=== PATIENT | male | born 1950 | race Caucasian/White ===

== ENCOUNTER → 2016-04-18 | Outpatient (REF) | payer OTHER ==
[~2016-04-18] MED LIST: /GUAIMAX PO; ALBU17IN INH; AMLODOPINE PO; ATEN50TA2 PO; CETI10TA3 PO; FLUTISP; GABA300C2 PO; HYDR-3713 PO; INSULANT SC; LISI5TAB PO; MOME50SP; OCEA0.654; SIMV80TA PO; SYMB80INH INH; TYLE325T5 PO; [UNRECOGNIZED DRUG - OTHER] SUBQ; flonase; hctz PO; lantus insulin SUBQ; lisinopril PO; singular PO
[2016-04-18 12:57] LABS: ALBUMIN 3.6 GM/DL (3.2-5.2); ALBUMIN/GLOBULIN RATIO 1.09 (1.00-1.93); ALKALINE PHOSPHATASE 146 U/L (45-117); ALT/SGPT 29 U/L (12-78); ANION GAP 9 MEQ/L (8-16); AST/SGOT 16 U/L (15-37); BILIRUBIN,TOTAL 0.5 MG/DL (0.2-1.0); BLOOD UREA NITROGEN 21 MG/DL (7-18); CALCIUM LEVEL 9.4 MG/DL (8.8-10.2); CARBON DIOXIDE LEVEL 27 MEQ/L (21-32); CHLORIDE LEVEL 106 MEQ/L (98-107); CHOLESTEROL LEVEL 108 MG/DL (<200); CREATININE FOR GFR 0.94 MG/DL (0.70-1.30); GLOMERULAR FILTRATION RATE > 60.0 (>49); GLUCOSE, FASTING 170 MG/DL (80-110); POTASSIUM SERUM 3.9 MEQ/L (3.5-5.1); SODIUM LEVEL 142 MEQ/L (136-145); TOTAL PROTEIN 6.9 GM/DL (6.4-8.2); TRIGLYCERIDES LEVEL 131 MG/DL (<150)
== END ==
LOC: M SFHCCLAY 07:13
PROVIDERS: ATTEND Family Medicine
DX: E11.49 Type 2 diabetes mellitus with other diabetic neurological complication (principal)

== ENCOUNTER → 2016-09-01 | Outpatient (REF) | payer OTHER ==
[2016-09-01 14:07] LABS: ALBUMIN 3.6 GM/DL (3.2-5.2); ALBUMIN/GLOBULIN RATIO 1.13 (1.00-1.93); ALKALINE PHOSPHATASE 104 U/L (45-117); ALT/SGPT 45 U/L (12-78); ANION GAP 12 MEQ/L (8-16); AST/SGOT 19 U/L (15-37); BILIRUBIN,TOTAL 0.3 MG/DL (0.2-1.0); BLOOD UREA NITROGEN 21 MG/DL (7-18); CALCIUM LEVEL 9.1 MG/DL (8.8-10.2); CARBON DIOXIDE LEVEL 25 MEQ/L (21-32); CHLORIDE LEVEL 107 MEQ/L (98-107); CHOLESTEROL LEVEL 86 MG/DL (<200); CREATININE FOR GFR 0.71 MG/DL (0.70-1.30); GLOMERULAR FILTRATION RATE > 60.0 (>49); GLUCOSE, FASTING 63 MG/DL (80-110); POTASSIUM SERUM 4.2 MEQ/L (3.5-5.1); SODIUM LEVEL 144 MEQ/L (136-145); TOTAL PROTEIN 6.8 GM/DL (6.4-8.2); TRIGLYCERIDES LEVEL 99 MG/DL (<150)
== END ==
LOC: M SFHCCLAY 06:59
PROVIDERS: ATTEND Family Medicine
DX: E11.49 Type 2 diabetes mellitus with other diabetic neurological complication (principal)

== ENCOUNTER → 2017-01-04 | Outpatient (REF) | payer OTHER ==
[2017-01-04 12:11] LABS: ALBUMIN 3.3 GM/DL (3.2-5.2); ALKALINE PHOSPHATASE 145 U/L (45-117); ALT/SGPT 48 U/L (12-78); ANION GAP 9 MEQ/L (8-16); AST/SGOT 21 U/L (7-37); BILIRUBIN,TOTAL 0.3 MG/DL (0.2-1.0); BLOOD UREA NITROGEN 19 MG/DL (7-18); CALCIUM LEVEL 8.8 MG/DL (8.8-10.2); CARBON DIOXIDE LEVEL 27 MEQ/L (21-32); CHLORIDE LEVEL 105 MEQ/L (98-107); CHOLESTEROL LEVEL 91 MG/DL (<200); CREATININE FOR GFR 0.83 MG/DL (0.70-1.30); GLOMERULAR FILTRATION RATE > 60.0 (>49); GLUCOSE, FASTING 183 MG/DL (80-110); POTASSIUM SERUM 4.1 MEQ/L (3.5-5.1); SODIUM LEVEL 141 MEQ/L (136-145); TOTAL PROTEIN 6.6 GM/DL (6.4-8.2); TRIGLYCERIDES LEVEL 100 MG/DL (<150)
== END ==
LOC: M SFHCCLAY 07:03
PROVIDERS: ATTEND Family Medicine
DX: E11.49 Type 2 diabetes mellitus with other diabetic neurological complication (principal)

== ENCOUNTER → 2018-01-15 | Outpatient (REF) | payer OTHER ==
[2018-01-15 11:33] LABS: ANION GAP 6 MEQ/L (8-16); BLOOD UREA NITROGEN 25 MG/DL (7-18); CALCIUM LEVEL 8.7 MG/DL (8.8-10.2); CARBON DIOXIDE LEVEL 27 MEQ/L (21-32); CHLORIDE LEVEL 111 MEQ/L (98-107); CREATININE FOR GFR 1.09 MG/DL (0.70-1.30); GLOMERULAR FILTRATION RATE > 60.0 (>49); GLUCOSE, FASTING 105 MG/DL (70-100); POTASSIUM SERUM 4.3 MEQ/L (3.5-5.1); SODIUM LEVEL 144 MEQ/L (136-145)
[2018-01-15 12:56] LABS: ESTIMATED AVERAGE GLUCOSE 243 MG/DL (60-110); HEMOGLOBIN A1c 10.1 %
== END ==
LOC: M SFHCCLAY 07:14
DX: E11.49 Type 2 diabetes mellitus with other diabetic neurological complication (principal)

== ENCOUNTER → 2018-04-29 | Outpatient (REF) | payer OTHER ==
[2018-04-29 11:43] LABS: HEMOGLOBIN A1c 8.2 %
[2018-04-29 12:10] LABS: CREATININE, URINE 16.7 MG/DL; MAU/CREAT RATIO 646.7 MCG/MG (0.0-30.0)
[2018-04-29 12:40] LABS: ALBUMIN 3.8 GM/DL (3.2-5.2); BILIRUBIN,TOTAL 0.5 MG/DL (0.2-1.0); CALCIUM LEVEL 8.3 MG/DL (8.8-10.2); CHOLESTEROL RISK RATIO 2.151 (<5); CREATININE FOR GFR 1.52 MG/DL (0.70-1.30); GLOMERULAR FILTRATION RATE 49.2 (>49); POTASSIUM SERUM 4.6 MEQ/L (3.5-5.1); TOTAL PROTEIN 7.1 GM/DL (6.4-8.2)
== END ==
LOC: M SFHCCLAY 08:56
PROVIDERS: ATTEND Family Medicine
DX: E11.49 Type 2 diabetes mellitus with other diabetic neurological complication (principal)

== ENCOUNTER 2018-06-10 21:43 | Inpatient (IN) | payer OTHER ==
[2018-06-09 23:45] VITALS: BP 150/70
[~2018-06-10] VITALS: Ht 175.3 cm; Wt 95.3 kg
[2018-06-10] MEDS: GABAPENTIN 300 MG CAP PO SCH (18:00)
[2018-06-10] MEDS: ATORVASTATIN 20 MG TAB PO SCH (18:00)
[2018-06-10] MEDS: FLUTICASONE PROP 0.05% NASAL SPRAY 16 GM (FLONASE) SCH (21:00)
[~2018-06-10 21:43] MED LIST changes: +FLUT1SPR2; -FLUTISP
[2018-06-10 21:45] VITALS: BP 150/70
[2018-06-10] MEDS: ISOSORBIDE DIN. (ISORDIL) 30 MG TAB PO SCH (22:00)
[2018-06-10] MEDS ORDERED: GLUCAGON FOR INJ 1 MG VIAL (J1610) SC PRN (22:15)
[2018-06-10] MEDS ORDERED: MOM 30ML SUSPENSION UDC PO PRN (22:15)
[2018-06-10] MEDS ORDERED: MAALOX 30 ML SUSP *UDC PO PRN (22:15)
[2018-06-10] MEDS ORDERED: GLUCOSE 4 GM CHEW TABLET PO PRN (22:15)
[2018-06-10] MEDS ORDERED: LR 1,000 ML IV SCH (22:45)
[2018-06-10] MEDS ORDERED: LISI40TA PO (22:47)
[2018-06-10] MEDS ORDERED: INSUHUMDS SC (22:47)
[2018-06-10] MEDS ORDERED: SYMB16INH INH (22:47)
[2018-06-10] MEDS ORDERED: GABA-843 PO (22:47)
[2018-06-10] MEDS ORDERED: AMLO-151 PO (22:47)
[2018-06-10] MEDS ORDERED: LANTINJ4 SC (22:47)
--- NOTE | 2018-06-10 23:00 | HPEPDOC ---
General Date of Admission June 10, 2018 at 21:43 Chief Complaint The patient is a 67-year-old male admitted with a reason for visit of ARF. Source: Patient, RN/MD, Old records Exam Limitations: No limitations History of Present Illness Mr. Scott is a 67 years old man transferred from [facility] with dx of acute renal failure. Pt reports feeling weak, and slight dizzy for about a week. He also c/o intermitted low back pain and feeling cold. He states he is urinating less than usual because "he is also drinking less" because he don't feel as thirsty. Otherwise PT denies fever, chills, hematuria, dysuria or diarrhea. Denies use of NSAID. Pt reportedly was taking K supplement at home. Pt has hx/o IDDM; doesn't take any nephrotoxic meds. At [facility], pt was noted to have BUN 126, Cr 6.[address] Pride was contacted from there; pt was given 1 amp bicarb, a litre of fluid bolus. EKG: LAFB, RBBB. CXR: normal. Home Medications Scheduled (Gabapentin) 300 Mg Cap, 300 MG PO BID, (Reported) Budesonide/Formoterol (Symbicort 80-4.5 Mcg Inhaler) 60 Puff/Inhaler Aers, 2 PUFF INH BID, (Reported) Cetirizine Hcl (Cetirizine Hcl) 10 Mg Tab, 10 MG PO DAILY, (Reported) Simvastatin (Simvastatin) 80 Mg Tab, 80 MG PO DAILY, (Reported) Sodium Chloride (Pershing) 0.65 % Spr, 4 SPRAYS NA Q4H, (Reported) [amlodopine] , 5 MG PO DAILY, (Reported) [hctz] , 25 MG PO DAILY, (Reported) [humalog ins] , SUBQ bid ac lunch dinner, (Reported) [lantus insulin] , 80 MG SUBQ every am, (Reported) [lisinopril] , 40 MG PO DAILY, (Reported) Scheduled PRN Acetaminophen (Tylenol) 325 Mg Tab, 650 MG PO Q4HP PRN for pain, (Reported) Albuterol Sulfate (Proventil, Ventolin Hfa) 200 Puff/8 Gm Aers, 2 PUFF INH PRN PRN for SHORTNESS OF BREATH, (Reported) Hydrocodone/Acetaminophen (Hydrocodone-Acetamin 5-325 mg) 1 Tab Tab, 1-2 TAB PO Q4HP PRN for PAIN SCALE 6-10, (Reported) Allergies Coded Allergies: aspirin (Verified Allergy, Severe, ANAPHYLAXIS, 06/10/18) Past Medical History Medical History IDDM, HTN, HD, Asthma Surgical History Sinus sx, Left knee sx Family History Significant Family History: Cancer Social History * Smoker: Denies Alcohol: Denies Drugs: denies A-FIB/CHADSVASC A-FIB History Current/History of A-Fib/PAF?: No Review of Systems Constitutional: Reports: Malaise, Weakness, Fatigue; Denies: Chills, Fever Eyes: Denies: Pain ENT: Denies: Head Aches, Dysphagia Skin: Denies: Rash Pulmonary: Denies: Dyspnea, Cough Cardiovascular: Denies: Chest Pain, Palpitations Gastrointestinal: Denies: Nausea, Vomiting, Abdominal Pain, Diarrhea Genitourinary: Denies: Dysuria, Frequency Musculoskeletal: Reports: Back Pain; Denies: Neck Pain Neurological: Reports: Weakness Psych: Reports: Mood Normal Physical Examination General Exam: Positive: Alert, Cooperative, No Acute Distress Eye Exam: Positive: PERRLA ENT Exam: Positive: Atraumatic Neck Exam: Positive: Supple; Negative: JVD Chest Exam: Positive: Clear to auscultation, Normal air movement Heart Exam: Positive: Rate Normal Abdomen Exam: Positive: Normal bowel sounds, Soft; Negative: Tenderness Extremity Exam: Positive: Edema (2+ edema on both legs), Normal pulses Skin Exam: Negative: Rash Neuro Exam: Positive: Normal Speech, Strength at 5/5 X4 ext Psych Exam: Positive: Mental status NL, Mood NL Vital Signs Vital Signs Date Time Temp Pulse Resp B/P (MAP) Pulse Ox O2 Delivery O2 Flow Rate FiO2 06/09/18 23:45 98.3 78 20 150/70 (96) 96 Assessment/Plan 67 years old diabetic man presenting with acute renal failure, hyperkalemia, and leg edema. Acute Renal Failure, Hyperkalemia, and Leg edema - Admit to inpatient; PCU with tele - CBC, CMP, ESR, TSH, UA, Urine Protein/Cr; CT abd/pelv - Nephrology consult - LR 150 cc/hr - Berry, I/O, daily wt - Echo - Hold ACEI IDDM - SSI and home ELIAS dose Plan / VTE VTE Prophylaxis Ordered?: Yes Plan / Urinary Catheter Urinary Catheter: Place Berry Reason for insertion/continuin: Other-document below (acute renal failure) Plan Anticipated Discharge: Home ALEXANDR ERVIN MD June 10, 2018 23:00
[2018-06-10 23:31] LABS: VENOUS BASE EXCESS -16.8 (-2.0-2.0); VENOUS HCO3 10.5 MEQ/L (23.0-27.0); VENOUS O2 SATURATION 98.8 % (60.0-80.0); VENOUS PARTIAL PRESSURE O2 174.9 mmHg (30.0-50.0); VENOUS PH 7.163 UNITS (7.330-7.430); VENOUS STANDARD HCO3 11.7 MEQ/L; VENOUS TOTAL CO2 11.4 MEQ/L (24.0-28.0)
[2018-06-10 23:35] LABS: HEMATOCRIT 30.9 % (42.0-52.0); HEMOGLOBIN 10.2 g/dl (13.5-17.5); MEAN CORPUSCULAR HEMOGLOBIN 27.2 pg (27.0-33.0); MEAN CORPUSCULAR VOLUME 82.4 fl (80.0-96.0); PLATELET COUNT, AUTOMATED 307 10^3/uL (150-450); RED BLOOD COUNT 3.75 10^6/uL (4.30-6.10); WHITE BLOOD COUNT 11.2 10^3/uL (4.0-10.0)
[2018-06-10] MEDS ORDERED: AMLO10TA5 PO (23:37)
[2018-06-10] MEDS ORDERED: POTA10TA14 PO (23:37)
[2018-06-10] MEDS ORDERED: BUME2TAB3 PO (23:37)
[2018-06-10] MEDS ORDERED: ATOR40TA75 PO (23:37)
[2018-06-10] MEDS ORDERED: ALL10TAB28 PO (23:37)
[2018-06-10] MEDS ORDERED: FLON1SPR (23:37)
[2018-06-10] MEDS ORDERED: VENTAER INH (23:37)
[2018-06-10] MEDS ORDERED: ALBU83IN INH (23:37)
[2018-06-10 23:45] LABS: INR 1.15; PARTIAL THROMBOPLASTIN TIME 27.1 SECONDS (25.4-37.6); PROTHROMBIN TIME 14.9 SECONDS (12.1-14.4)
[2018-06-10 23:51] LABS: HEMOGLOBIN A1c 9.2 %
[2018-06-10 23:54] LABS: ERYTHROCYTE SEDIMENTATION RATE 28 mm/hr (0-20)
[2018-06-10 23:56] LABS: ALBUMIN 2.9 GM/DL (3.2-5.2); BILIRUBIN,TOTAL 0.3 MG/DL (0.2-1.0); CALCIUM LEVEL 7.2 MG/DL (8.8-10.2); CREATININE FOR GFR 6.19 MG/DL (0.70-1.30); GLOMERULAR FILTRATION RATE 9.7 (>49); POTASSIUM SERUM 5.6 MEQ/L (3.5-5.1)
[2018-06-10 23:59] VITALS: BP 157/69
[2018-06-11 00:03] LABS: THYROID STIMULATING HORMONE 0.977 uIU/ML (0.358-3.740)
[2018-06-11] MEDS ORDERED: ALBUTEROL 90 MCG/ACT 8GM HFA INHALER INH PRN (00:15)
--- NOTE | 2018-06-11 00:29 | REPVR ---
EXAM: CT Abdomen and Pelvis Without Contrast EXAM DATE/TIME: 06/10/2018 10:55 PM CLINICAL HISTORY: 67 years old, male; Abdominal pain; Generalized; Additional info: Acute renal failure TECHNIQUE: Imaging protocol: Axial computed tomography images of the abdomen and pelvis without contrast. Coronal and sagittal reformatted images were created and reviewed. Radiation optimization: All CT scans at this facility use at least one of these dose optimization techniques: automated exposure control; mA and/or kV adjustment per patient size (includes targeted exams where dose is matched to clinical indication); or iterative reconstruction. COMPARISON: CT ABD PELVIS W/O CONTRAST 06/25/2012 2:17 PM FINDINGS: ABDOMEN: Liver: The liver is low in density. Gallbladder and bile ducts: Normal. No calcified stones. No ductal dilation. Pancreas: Calcifications noted to within the pancreas particularly the pancreatic head. Spleen: Normal. No splenomegaly. Adrenals: Normal. No mass. Kidneys and ureters: 2.5 mm calcification lower pole left kidney. No hydronephrosis in either kidney Stomach and bowel: There appears to be pneumatosis in the right side of the colon. No bowel wall thickening. No abnormally dilated bowel loops. Appendix: No evidence of appendicitis. PELVIS: Bladder: Unremarkable as visualized. Reproductive: The prostate measures 4 x 5.3 x 4.9 cm. ABDOMEN and PELVIS: Intraperitoneal space: Normal. No free air. No significant fluid collection. Bones/joints: Degenerative changes of the lumbar spine most significant at L4-5 and L5-S1. Soft tissues: There is an umbilical hernia containing fat. Trace amount of soft tissue thickening/fluidnoted within the herniated fat. Mild generalized stranding of the intra-abdominal fat. Small inguinal hernias bilaterally containing fat. No evidence of strangulation. Vasculature: Normal. No abdominal aortic aneurysm. Lymph nodes: Normal. No enlarged lymph nodes. Other findings: There is generalized arteriosclerosis. IMPRESSION: 1. Pneumatosis suggested of the cecum and ascending colon. 2. Chronic calcific pancreatitis. 3. Nonobstructing calculus in the lower pole left kidney. 4. Hepatic steatosis 5. Umbilical hernia containing fat. Trace amount of fluid or soft tissue thickening noted within the hernia Electronically signed by: Dori Dalal On 06/11/2018 00:29:15 AM
[2018-06-11] MEDS: SYMBICORT 160/4.5MCG INHALER 6GM INH SCH ×3 (00:38→20:19)
[2018-06-11] MEDS: SODIUM BICARBONATE 150 MEQ in STERILE WATER LITER BAG 1,000 ML IV SCH ×3 (01:00→20:03)
[2018-06-11 01:50] LABS: OSMOLALITY URINE 323 MOSM/KG (500-800)
[2018-06-11 02:07] LABS: SODIUM,RANDOM URINE 59 MEQ/L
[2018-06-11 02:12] LABS: CREATININE,RANDOM URINE 61.9 MG/DL
--- NOTE | 2018-06-11 03:11 | CR.PDOC ---
General Surgery Consultation Date of Consultation 06/11/18 History and Physical CONSULT REPORT FOR: Hospitalist service REASON FOR CONSULTATION: Abnormal findings on CT, question pneumatosis right colon HISTORY OF PRESENT ILLNESS: Patient is a 67-year-old gentleman, diabetic who was transferred from [facility]. He presented at [facility] emergency room complaining of 1 month history of not feeling well, generalized body weakness. He does not specifically complain of any abdominal pain or discomfort. He was found to have acute renal failure Juvenal reason for the transfer. While here in the hospital he had a noncontrast CT performed to evaluate the cause of the renal failure. He was found to have possible pneumatosis in the right colon. He reports having loose stool, some fecal urgency intermittently the past two weeks but none today. He denies any bloody or mucus containing bowel movements today. Review of the records from [facility] shows soft bp (one recording of BP 96/43, rest are normal range). He got IVF bolus there. His vitals here in the hospital shows elevated BP. He denies any abdominal pain at the time I saw him. PAST MEDICAL HISTORY: 1. diabetes with neuropathy 2. hypertension 3. hypercholesterolemia PAST SURGICAL HISTORY: INCLUDES: 1. denies any abdominal surgeries ALLERGIES: Please see below. FAMILY HISTORY: Father from prostate cancer HOME MEDICATIONS: Please see below. REVIEW OF SYSTEMS: GENERAL: Denies fever, reports feeling weak HEENT: Denies blurred vision and double vision. Denies ear symptoms. Denies hoarseness. NECK: Denies any neck pain]. CARDIOVASCULAR: Denies chest pain and palpitations. MUSCULOSKELETAL: Denies arthralgias, back pain and thrombophlebitis. SKIN: Denies rash. NEUROLOGIC: Denies headache, stroke and transient ischemic attack. PSYCHIATRIC: Denies anxiety and depression. ENDOCRINE: Denies thyroid disease. HEMATOLOGY/ONCOLOGY: Denies bleeding or clotting disorder. HEART: Denies any chest pains, palpitations, paroxysmal dyspnea, orthopnea. PULMONARY: Denies chronic cough, dyspnea and wheezing. GASTROINTESTINAL: Denies rectal bleeding, family history of colon cancer, constipation, diarrhea, dysphagia, heartburn and jaundice. Patient denies any o ngoing abdominal discomfort GENITOURINARY: Denies dysuria, frequency, hematuria and nocturia. ENDOCRINE: Denies polydipsia, polyphagia, polyuria, heat or cold intolerance. INFECTIOUS: Denies any recent upper respiratory tract infection, UTI, need for use of antibiotics. NUTRITION: Reports poor appetite PHYSICAL EXAMINATION: VITALS SIGNS: Please see below. GENERAL APPEARANCE:Patient seen, laying in bed, awake, alert, and oriented. Comfortable, in no acute distress. SKIN: Warm and moist. HEENT: Normocephalic, atraumatic. Guffey palpebral conjunctiva, anicteric sclerae. Lips and mucosa appear moist. NECK: Supple, no thyromegaly. No obvious jugular venous distention. LUNGS: Clear to auscultation bilaterally. No wheezing appreciated. HEART: No chest wall abnormalities. Regular rate and rhythm with no murmurs appreciated. ABDOMEN: Abdomen is mild obese, soft, nondistended. nontender on palpation even on deep palpation over right lower quadrant area. EXTREMITIES: Mild lower extremity edema ANCILLARIES: . LABORATORY DATA: Please see below. IMAGING STUDIES: CT abdomen and pelvis, noncontrast Liver: The liver is low in density. Gallbladder and bile ducts: Normal. No calcified stones. No ductal dilation. Pancreas: Calcifications noted to within the pancreas particularly the pancreatic head. Spleen: Normal. No splenomegaly. Adrenals: Normal. No mass. Kidneys and ureters: 2.5 mm calcification lower pole left kidney. No hydronephrosis in either kidney Stomach and bowel: There appears to be pneumatosis in the right side of the colon. No bowel wall thickening. No abnormally dilated bowel loops. Appendix: No evidence of appendicitis. IMPRESSION AND PLAN: Acute renal failure Questionable pneumatosis right colon, no peritonitis, no CVA inflammatory response no lactic acidosis This may not be an actual pneumatosis or ischemia over the right colon. Clinical examination does not reveal any evidence for peritonitis. He does not have any tenderness over the abdomen and specifically the right lower quadrant area. He does have some metabolic acidosis but this is mainly non-lactic acidosis. His lactic acid is 0.5. For meantime I think it is prudent to start him on some antibiotics, continue to follow his course clinically. I will closely follow him him up with serial abdominal exam. For meantime continue to hydrate the patient, keep him normotensive, follow urine output. I will keep him nothing by mouth until reevaluation. If there is no deterioration the probably can restart oral intake. If he does show signs of peritonitis, abdominal tenderness, lactic acidosis or deterioration or even signs of perforation, he will need to go to the operating room for abdominal exploration possibly bowel resection. Vital Signs Vital Signs Date Time Temp Pulse Resp B/P (MAP) Pulse Ox O2 Delivery O2 Flow Rate FiO2 06/10/18 23:59 98.0 70 20 157/69 (98) 96 I&Os I&O- Last 24 Hours up to 6 AM 06/11/18 06:00 Intake Total 0 ml Output Total 0 ml Balance 0 ml Laboratory Data Labs 24H Laboratory Tests 2 06/10/18 23:19: Nucleated Red Blood Cells % (auto) 0.0, Erythrocyte Sedimentation Rate 28H, Prothrombin Time 14.9H, Prothromb Time International Ratio 1.15, Activated Partial Thromboplast Time 27.1, Blood Gas Bicarbonate Standard 11.7, Venous Blood pH 7.163L, Venous Blood Partial Pressure CO2 30.0L, Venous Blood Partial Pressure O2 174.9H, Venous Blood Total Carbon Dioxide 11.4L, Venous Blood HCO3 10.5L, Venous Blood Oxygen Saturation 98.8H, Venous Blood Base Excess -16.8L, Anion Gap 12, Glomerular Filtration Rate 9.7L, Estimated Mean Plasma Glucose 217H, Hemoglobin A1c 9.2, Osmolality 325H, Lactic Acid Level 0.5, Blood Urea Nitrogen 114H, Creatinine 6.19H, Sodium Level 143, Potassium Level 5.6H, Chloride Level 118H, Carbon Dioxide Level 13L, Calcium Level 7.2L, Aspartate Amino Transf (AST/SGOT) 12, Alanine Aminotransferase (ALT/SGPT) 34, Alkaline Phosphatase 122H, Total Bilirubin 0.3, Total Protein 6.0L, Albumin 2.9L, Albumin/Globulin Ratio 0.94L, Thyroid Stimulating Hormone (TSH) 0.977 06/11/18 00:07: Bedside Glucose (Misc Panel) 92 06/11/18 01:18: Urine Color STRAW, Urine Appearance CLEAR, Urine pH 5.0, Urine Specific [place] 1.008, Urine Protein NEGATIVE, Urine Glucose (UA) NEGATIVE, Urine Ketones NEGATIVE, Urine Blood 1+H, Urine Nitrite NEGATIVE, Urine Bilirubin NEGATIVE, Urine Urobilinogen 0.2, Urine Leukocyte Esterase NEGATIVE, Urine WBC (Auto) 1, Urine RBC (Auto) 0, Urine Hyaline Casts (Auto) 0, Urine Bacteria (Auto) NEGATIVE, Urine Squamous Epithelial Cells 0, Urine Sperm (Auto) , Urine Random Osmolality 323L CBC/BMP Laboratory Tests 06/10/18 23:19 Red Blood Count 3.75 L, Mean Corpuscular Volume 82.4, Mean Corpuscular Hemoglobin 27.2, Mean Corpuscular Hemoglobin Concent 33.0, Red Cell Distribution Width 15.2 H, Calcium Level 7.2 L, Aspartate Amino Transf (AST/SGOT) 12, Alanine Aminotransferase (ALT/SGPT) 34, Alkaline Phosphatase 122 H, Total Bilirubin 0.3, Total Protein 6.0 L, Albumin 2.9 L Home Medications Scheduled Amlodipine Besylate (Amlodipine Besylate) 10 Mg Tablet, 10 MG PO DAILY, (Reported) Atorvastatin Calcium (Atorvastatin Calcium) 40 Mg Tablet, 40 MG PO QPM, (Reported) TAKES AT DINNERTIME Budesonide/Formoterol (Symbicort 160-4.5 Mcg Inhaler) 6 Gm Hfa.aer.ad, 2 PUFF INH BID, (Reported) Bumetanide (Bumetanide) 2 Mg Tablet, 2 MG PO BID, (Reported) Cetirizine HCl (Cetirizine HCl) 10 Mg Tablet, 10 MG PO DAILY, (Reported) Fluticasone Propionate (Flonase Allergy Relief) 9.9 Ml [place].susp, 1 SPRAY NA BID, (Reported) Gabapentin (Gabapentin) 300 Mg Capsule, 300 MG PO QPM, (Reported) TAKES AT DINNERTIME Insulin Glargine,Hum.rec.anlog (Lantus Solostar) 100 Unit/1 Ml Insuln.pen, 45 UNITS SC DAILY, (Reported) Insulin Human Lispro (Humalog) 100 Unit/1 Ml Vial, 1 UNITS SC AC According to sliding scale AC protocol Scheduled PRN Albuterol Sulf (Albuterol Sulfate) 2.5 Mg/3 Ml Vial.neb, 2.5 MG INH TID PRN for SHORTNESS OF BREATH, (Reported) Albuterol Sulfate (Ventolin Hfa) 18 Gm Hfa.aer.ad, 2 PUFF INH Q4H PRN for SHORTNESS OF BREATH, (Reported) Allergies Coded Allergies: NSAIDS (Non-Steroidal Anti-Inflamma (Verified Allergy, Severe, ANAPHYLAXI S, 06/10/18) aspirin (Verified Allergy, Severe, ANAPHYLAXIS, 06/10/18) KAREEN MANCUSO MD June 11, 2018 02:03
[2018-06-11 03:54] LABS: HEMATOCRIT 28.8 % (42.0-52.0); HEMOGLOBIN 9.4 g/dl (13.5-17.5); MEAN CORPUSCULAR HEMOGLOBIN 27.1 pg (27.0-33.0); MEAN CORPUSCULAR HGB CONC 32.6 g/dl (32.0-36.5); PLATELET COUNT, AUTOMATED 274 10^3/uL (150-450); RED BLOOD COUNT 3.47 10^6/uL (4.30-6.10); WHITE BLOOD COUNT 10.4 10^3/uL (4.0-10.0)
[2018-06-11 04:00] VITALS: BP 142/70
[2018-06-11] MEDS: CIPROFLOXACIN 200 MG in APPROPRIATE DILUENT 1 EA IV SCH ×2 (04:00→17:36)
[2018-06-11 04:18] LABS: CALCIUM LEVEL 7.2 MG/DL (8.8-10.2); CREATININE FOR GFR 6.21 MG/DL (0.70-1.30); GLOMERULAR FILTRATION RATE 9.7 (>49); POTASSIUM SERUM 5.1 MEQ/L (3.5-5.1)
[2018-06-11] MEDS: HumaLOG INSULIN (NovoLOG) PER UNIT SC SCH ×4 (06:00→20:03)
[2018-06-11] MEDS: ISOSORBIDE DIN. (ISORDIL) 30 MG TAB PO SCH ×3 (06:00→21:56)
[2018-06-11] MEDS: metroNIDAZOLE 250 MG in APPROPRIATE DILUENT 1 EA IV SCH ×3 (06:00→21:52)
[2018-06-11] MEDS: DEXTROSE 50% 50 ML SYRINGE IV PRN ×5 (06:23→18:12)
[2018-06-11 07:14] VITALS: BP 140/72
[2018-06-11] MEDS ORDERED: HumaLOG INSULIN (NovoLOG) PER UNIT SC SCH ×2 (07:30→21:00)
[2018-06-11] MEDS: amLODIPine 10 MG TAB PO SCH (08:21)
[2018-06-11] MEDS: FLUTICASONE PROP 0.05% NASAL SPRAY 16 GM (FLONASE) SCH ×2 (08:22→20:03)
[2018-06-11] MEDS: HEPARIN SOD (PORCINE) 5000 UNITS/ML VIAL SC SCH ×2 (08:22→20:03)
[2018-06-11] MEDS ORDERED: PNEUMOCOCCAL VACCINE 0.5ML SYRINGE(90732) PNEUMOVAX 23 IM ONE (09:00)
[2018-06-11] MEDS ORDERED: LEVEMIR (INSULIN DETEMIR) 1 UNITS/0.01ML SC SCH (09:00)
[2018-06-11 12:00] VITALS: BP 112/60
[2018-06-11 12:25] LABS: VENOUS BASE EXCESS -12.3 (-2.0-2.0); VENOUS HCO3 13.7 MEQ/L (23.0-27.0); VENOUS O2 SATURATION 98.6 % (60.0-80.0); VENOUS PARTIAL PRESSURE CO2 31.3 mmHg (38.0-50.0); VENOUS PH 7.258 UNITS (7.330-7.430); VENOUS STANDARD HCO3 14.8 MEQ/L; VENOUS TOTAL CO2 14.6 MEQ/L (24.0-28.0)
[2018-06-11 12:55] LABS: CALCIUM LEVEL 7.3 MG/DL (8.8-10.2); CREATININE FOR GFR 5.84 MG/DL (0.70-1.30); GLOMERULAR FILTRATION RATE 10.4 (>49); POTASSIUM SERUM 4.4 MEQ/L (3.5-5.1)
--- NOTE | 2018-06-11 15:51 | IPNPDOC ---
Date Seen The patient was seen on 06/11/18. Progress Note SUBJECTIVE: Patient was seen and examined this morning. He denies any difficulty urinating. He had stated that he had decreased oral intake recently. He denies abdominal pain. He does admit to feeling lightheaded when standing and states this has been going on for some time. OBJECTIVE PHYSICAL EXAMINATION: VITAL SIGNS: Please see below. GENERAL: Awake, alert, and oriented. He does not appear to be in acute distress HEENT: Atraumatic normocephalic. Eyes are nonicteric. Trachea is midline. Mucous membranes appear pink and moist CARDIOVASCULAR: Normal S1, S2. Regular rate and rhythm. No clicks, rubs, or murmurs RESPIRATORY: Clear vesicular breath sounds bilaterally. Good respiratory effort. No wheezes, rhonci, or rales ABDOMINAL: Soft, nondistended, nontender to palpation in all 4 quadrants. No rebound tenderness or guarding. Positive bowel sounds throughout. No suprapubic tenderness. EXTREMITIES: No edema. Full and equal pulses in bilateral upper and lower extremities NEUROLOGICAL: No focal neurological deficits noted PSYCHOLOGICAL: Mood and affect appear appropriate LABORATORY DATA, IMAGING STUDIES, MICROBIOLOGY: Please see below. DVT prophylaxis ordered?: Heparin SQ ASSESSMENT AND PLAN: Patient is a 67 year old male with a past medical history of IDDM, hypertension, and asthma who presented as a transfer from [facility] for a dx of acute kidney failure. Additionally, on CT the patient was found to pneumostosis. Patient was evaluated by general surgery who did not feel it necessary to PROBLEMS: 1. Acute Renal Failure -Patient presented with acute renal failure. His calculated FeNa suggests possible obstruction although there is no evidence of obstruction. -Patient has been receiving IV fluid hydration. His renal function has only improved slightly. -Nephrology consult has been placed. Will continue IV hydration currently. Trending Cr. He continues to have adequate urine output 2. Hyperkalemia -Resolving with IV hydration 3. Pneumostosis -Patient was found to have pneumatosis on CT imaging. Patient has been evaluated by general surgery. Physical examination is not impressive. -Patient is continued on meropenem and Cipro. Will monitor for pain. Will continue IV hydration -Patient was made NPO; discussed with surgery - diet has been advanced 4. HTN -Novasc 5. IDDM with hypoglycemia -Has received D50 amps -Insulin Q6h SC -consistent carb / renal diet started 6. DVT prophylaxis -Heparin Q12H SC A-FIB/CHADSVASC A-FIB History Current/History of A-Fib/PAF?: No VS, I&O, 24H, Fishbone Vital Signs/I&O Vital Signs Date Time Temp Pulse Resp B/P (MAP) Pulse Ox O2 Delivery O2 Flow Rate FiO2 06/11/18 12:00 97.9 72 16 112/60 (77) 96 I&O- Last 24 Hours up to 6 AM 06/11/18 06:00 Intake Total 625 ml Output Total 1150 ml Balance -525 ml Laboratory Data 24H LABS Laboratory Tests 2 06/10/18 23:19: Nucleated Red Blood Cells % (auto) 0.0, Erythrocyte Sedimentation Rate 28H, Prothrombin Time 14.9H, Prothromb Time International Ratio 1.15, Activated Partial Thromboplast Time 27.1, Blood Gas Bicarbonate Standard 11.7, Venous Blood pH 7.163L, Venous Blood Partial Pressure CO2 30.0L, Venous Blood Partial Pressure O2 174.9H, Venous Blood Total Carbon Dioxide 11.4L, Venous Blood HCO3 10.5L, Venous Blood Oxygen Saturation 98.8H, Venous Blood Base Excess -16.8L, Anion Gap 12, Glomerular Filtration Rate 9.7L, Estimated Mean Plasma Glucose 217H, Hemoglobin A1c 9.2, Osmolality 325H, Lactic Acid Level 0.5, Blood Urea Nitrogen 114H, Creatinine 6.19H, Sodium Level 143, Potassium Level 5.6H, Chloride Level 118H, Carbon Dioxide Level 13L, Calcium Level 7.2L, Aspartate Amino Transf (AST/SGOT) 12, Alanine Aminotransferase (ALT/SGPT) 34, Alkaline Phosphatase 122H, Total Bilirubin 0.3, Total Protein 6.0L, Albumin 2.9L, [place] min/Globulin Ratio 0.94L, Thyroid Stimulating Hormone (TSH) 0.977 06/11/18 00:07: Bedside Glucose (Misc Panel) 92 06/11/18 01:18: Urine Color STRAW, Urine Appearance CLEAR, Urine pH 5.0, Urine Specific [place] 1.008, Urine Protein NEGATIVE, Urine Glucose (UA) NEGATIVE, Urine Ketones NEGATIVE, Urine Blood 1+H, Urine Nitrite NEGATIVE, Urine Bilirubin NEGATIVE, Urine Urobilinogen 0.2, Urine Leukocyte Esterase NEGATIVE, Urine WBC (Auto) 1, Urine RBC (Auto) 0, Urine Hyaline Casts (Auto) 0, Urine Bacteria (Auto) NEGATIVE, Urine Squamous Epithelial Cells 0, Urine Sperm (Auto) , Urine Random Osmolality 323L, Urine Random Creatinine 61.9, Urine Random Total Protein 21.0H, Urine Random Sodium 59 06/11/18 02:13: Bedside Glucose (Misc Panel) 91 06/11/18 03:31: Nucleated Red Blood Cells % (auto) 0.0, Anion Gap 10, Glomerular Filtration Rate 9.7L, Blood Urea Nitrogen 111H, Creatinine 6.21H, Sodium Level 141, Potassium Level 5.1, Chloride Level 117H, Carbon Dioxide Level 14L, Calcium Level 7.2L 06/11/18 06:21: Bedside Glucose (Misc Panel) 54L 06/11/18 06:45: Bedside Glucose (Misc Panel) 91 06/11/18 10:20: Bedside Glucose (Misc Panel) 37*L 06/11/18 10:50: Bedside Glucose (Misc Panel) 75L 06/11/18 11:56: Bedside Glucose (Misc Panel) 94 06/11/18 12:13: Blood Gas Bicarbonate Standard 14.8, Venous Blood pH 7.258L, Venous Blood Partial Pressure CO2 31.3L, Venous Blood Partial Pressure O2 175.0H, Venous Bl ood Total Carbon Dioxide 14.6L, Venous Blood HCO3 13.7L, Venous Blood Oxygen Saturation 98.6H, Venous Blood Base Excess -12.3L, Anion Gap 11, Glomerular Filtration Rate 10.4L, Blood Urea Nitrogen 107H, Creatinine 5.84H, Sodium Level 141, Potassium Level 4.4, Chloride Level 115H, Carbon Dioxide Level 15L, Calcium Level 7.3L CBC/BMP Laboratory Tests 06/10/18 23:19 Red Blood Count 3.75 L, Mean Corpuscular Volume 82.4, Mean Corpuscular Hemoglobin 27.2, Mean Corpuscular Hemoglobin Concent 33.0, Red Cell Distribution Width 15.2 H, Calcium Level 7.2 L, Aspartate Amino Transf (AST/SGOT) 12, Alanine Aminotransferase (ALT/SGPT) 34, Alkaline Phosphatase 122 H, Total Bilirubin 0.3, Total Protein 6.0 L, Albumin 2.9 L 06/11/18 03:31 Red Blood Count 3.47 L, Mean Corpuscular Volume 83.0, Mean Corpuscular Hemoglobin 27.1, Mean Corpuscular Hemoglobin Concent 32.6, Red Cell Distribution Width 15.1 H, Calcium Level 7.2 L 06/11/18 12:13 Calcium Level 7.3 L GME ATTESTATION GME ATTESTATION My faculty preceptor for this patient encounter was physically present during the encounter and was fully available. All aspects of the patient interview, examination, medical decision making process, and medical care plan development were reviewed and approved by the faculty preceptor. The faculty preceptor is aware and concurs with the plan as stated in the body of this note and will attest to such by his/her cosignature. ATTENDING NOTE I, Ny Richards, have both independently examined this patient as well as reviewed the documentation. I have discussed in detail with the resident the fi ndings and plan of treatment as documented by the resident. I agree with their findings and treatment plan. I will continue to follow the patient and offer further guidance to the patients care as necessary during this hospital stay. CHUY HASSAN DO June 11, 2018 15:51 [place] RICHARDS MD June 11, 2018 17:03
[2018-06-11] MEDS: GABAPENTIN 300 MG CAP PO SCH (17:36)
[2018-06-11] MEDS: ATORVASTATIN 20 MG TAB PO SCH (17:36)
[2018-06-11] MEDS: ALBUTEROL SULFATE 2.5 MG/0.5 ML INH NEB SOLN INH PRN (18:19)
--- NOTE | 2018-06-11 18:57 | ECHO ---
DATE OF PROCEDURE: 06/11/2018 Date of : 1950 Age: 67 Gender: Male Height: 69 inches Weight: 194 pounds Body surface area: 2.04 meters squared Inpatient: Progressive care unit (PCU), room 3215 REFERRING PHYSICIAN: Dr. Nikolai Stewart INDICATION: Abnormal EKG. MEASUREMENTS: 2D Measurements: RV: 4.2 cm LV: 5.3 cm Septum: 1.1 cm Posterior wall: 1.1 cm Aortic root: 3.7 cm LA: 3.4 cm LVEF: 65% Doppler Measurements: AV: 1.6 meters per second LVOT: 1.0 meters per second LVOT diameter: 2.3 cm MV-E: 73, A: 87, E/A ratio: 0.8 Early mitral deceleration time: 246 milliseconds E prime: 9.7, A prime: 95, E/E prime ratio: 7.5 PV: 1.1 meters per second Pulmonary artery acceleration time: 127 milliseconds RVSP: 26 mmHg IVC: 1.6 cm COMMENT: Normal sinus rhythm with right bundle branch block. M-mode and two-dimensional echocardiography was performed with pulsed, continuous wave, color flow and tissue Doppler studies. Normal left ventricular size, wall thickness and hyperkinetic wall motion. Normal left atrial size with Doppler evidence of an impairment of left ventricular (LV) diastolic function but currently normal mean left atrial pressure. Right heart chamber sizes upper limits of normal with normal wall motion and current estimated pulmonary arterial pressure. Normal inferior vena cava (IVC) size and collapse against an elevated central venous pressure. Normal appearing aortic valvular apparatus and function. Aortic root upper limits of normal in size. Normal appearing mitral valvular apparatus without functional abnormality. No apparent intracardiac mass or pericardial effusion. MTDD
[2018-06-11 19:27] VITALS: BP 145/62
[2018-06-11 23:38] VITALS: BP 116/62
[2018-06-12] MEDS: CIPROFLOXACIN 200 MG in APPROPRIATE DILUENT 1 EA IV SCH ×2 (04:00→16:54)
[2018-06-12 04:35] VITALS: BP 130/70
[2018-06-12] MEDS: ISOSORBIDE DIN. (ISORDIL) 30 MG TAB PO SCH ×3 (06:00→23:24)
[2018-06-12] MEDS: metroNIDAZOLE 250 MG in APPROPRIATE DILUENT 1 EA IV SCH ×3 (06:00→23:24)
[2018-06-12 06:02] LABS: ALBUMIN 2.5 GM/DL (3.2-5.2); ALT/SGPT 24 U/L (12-78); BILIRUBIN,TOTAL 0.3 MG/DL (0.2-1.0); BLOOD UREA NITROGEN 102 MG/DL (7-18); CALCIUM LEVEL 6.2 MG/DL (8.8-10.2); CARBON DIOXIDE LEVEL 19 MEQ/L (21-32); CHLORIDE LEVEL 110 MEQ/L (98-107); CREATININE FOR GFR 5.81 MG/DL (0.70-1.30); GLOMERULAR FILTRATION RATE 10.5 (>49); GLUCOSE, FASTING 113 MG/DL (70-100); POTASSIUM SERUM 4.4 MEQ/L (3.5-5.1); SODIUM LEVEL 139 MEQ/L (136-145); TOTAL PROTEIN 5.1 GM/DL (6.4-8.2)
[2018-06-12] MEDS: HumaLOG INSULIN (NovoLOG) PER UNIT SC SCH ×4 (07:30→19:47)
--- NOTE | 2018-06-12 07:31 | REP ---
Clinical: Shortness of breath . Comparison: 03/21/2013 . Findings: The mediastinum and cardiac silhouette are stable and within normal limits for portable technique. The lung barr are clear without acute consolidation, effusion, or pneumothorax. Skeletal structures are intact. Impression: No acute cardiopulmonary process appreciated. Electronically Signed by Mg Pepe MD 06/12/2018 07:22 A
[2018-06-12 08:00] VITALS: BP 121/56
[2018-06-12] MEDS: SYMBICORT 160/4.5MCG INHALER 6GM INH SCH ×2 (08:00→19:49)
--- NOTE | 2018-06-12 08:24 | CR ---
DATE OF CONSULTATION: 06/11/2018 REQUESTING PHYSICIAN: Dr. Nikolai Stewart. REASON FOR CONSULTATION: Acute kidney failure with hyperkalemia and metabolic acidosis. HISTORY OF PRESENT ILLNESS: Shawn Scott is a 67-year-old male previously unknown to me. Patient of Dr. Colin Christine with a past medical history of insulin dependent diabetes mellitus, hypertension, asthma, nephrolithiasis, dyslipidemia, neuropathy, diastolic congestive heart failure. Patient states that he was in his usual state of health until about a week ago when he started feeling progressively weaker and fatigued at home and was starting to feel off balance and dizzy, "I was walking like I was drunk". He also complains of subjective chills, decreased appetite and decreased urination. He continued to take his home medications while he was not feeling well. Hi symptoms and he subsequently presented to [facility] ER for further evaluation. I was called by the ER, [place] regarding the patient's abnormal labs. In the ER at [facility] the patient had a creatinine of 6.6 and a potassium of 6.4. I recommended that the patient he given IV fluids and sodium bicarbonate, calcium gluconate supplementation and arrangements were made for the patient to be transferred to [facility] for higher level of care. Overnight the patient was continued on bicarbonate containing fluids. He had a Berry catheter placed and he started to have improved urine output. He reports he still feels weak and not at his baseline Imaging studies at [facility] revealed pneumatosis in the ascending colon. Patient has been nothing by mouth on IV fluids and his main complaint is hunger. PAST MEDICAL HISTORY: As mentioned above. Insulin dependant diabetes, asthma, hypertension, dyslipidemia, neuropathy, diastolic congestive heart failure. ALLERGIES: NSAIDS and aspirin. SURGICAL HISTORY: Sinus surgery, left knee surgery. FAMILY HISTORY: Denies any known family history of renal failure, reports a family history of cancer. SOCIAL HISTORY: and lives with his , denies smoking, alcohol or illicit drugs. HOME MEDICATIONS: Reviewed and include Albuterol, amlodipine 10 mg by mouth daily, atorvastatin 40 mg by mouth at bedtime, Symbicort bumetanide 2 mg by mouth twice a day, Flonase gabapentin 300 mg by mouth at bedtime, insulin lisinopril 40 mg by mouth at bedtime and potassium mEq twice a day. REVIEW OF SYSTEMS: CONSTITUTIONAL: He reports subjective chills. He denies fevers, he reports generalized fatigue, weakness and feeling off balance. EYES: He denies visual changes. ENT: He denies tinnitus out of or odynophagia. CARDIAC: He denies chest pain or palpitations. GI: He denies nausea or vomiting. He does report a decreased oral intake. He denies abdominal pain. : He reports decreased urine output. He denies dysuria or hematuria. MUSCULOSKELETAL: He denies any new myalgias or arthralgias. He says he felt very off balance while trying to walk at home. Neurologic she reports a dizziness and generalized weakness but denies any focal weakness, denies seizure or syncope. PSYCHIATRIC: Denies anxiety or depression. SKIN: Denies any new rashes or ulcers. ENDOCRINE: Reports a history of diabetes and neuropathy. PHYSICAL EXAMINATION: VITAL SIGNS: Temperature 99.0, pulse 32, respiratory rate 16, blood pressure 145/62 saturating 95% on room air. INTAKE AND OUTPUT: Were not fully recorded. Urine output thus far today is 1.9 liters. GENERAL: Patient is seen lying in bed awake, alert, oriented times three in no apparent distress. is present at the bedside. His eyes are anicteric. His mucous membranes are moist. His neck is supple. His jugular veins do not appear elevated. CARDIAC: S1, S2 regular rate and rhythm. LUNGS: There is occasional expiratory wheeze and some diminished breath sounds at the bases. Otherwise no crackles or rhonchus. ABDOMEN: Soft and nontender to palpation. There are bowel sounds. : Berry catheter draining clear light yellow urine. The lower extremities are negative for edema or clubbing. NEUROLOGIC: There are no focal neurologic deficits appreciated. He is oriented and interactive. PSYCHIATRIC: Appropriate mood and affect. SKIN: Normal turgor and temperature. LABS: White count 10.4, hemoglobin 9.4, platelets 274, sodium 141, potassium 5.1 which is improved from 6.4 at the outside hospital, bicarbonate 14, BUN 111, creatinine 6.2, glucose 74. CT abdomen and pelvis noncontrast shows pneumatosis in the ascending colon. Kidneys shows left lower pole kidney with a 2.5 mm calcification. Probably a nonobstructing calculus. INPATIENT MEDICATIONS: He has been receiving Alara at 150 mL an hour which was changed over to sterile water with 150 mEq of sodium bicarbonate running at 160 mL per hour. I have decreased the rate to 60 mL per hour. Ciprofloxacin 200 mg IV every 12, Flagyl 250 mg IV every 8 hours, Tylenol as needed, Albuterol as needed, amlodipine 10 mg by mouth daily, Lipitor 40 mg by mouth daily, Symbicort, gabapentin 300 mg by mouth daily, heparin 5,000 units subcu every 12 hours, Isordil 30 mg by mouth every 8 hours. PROBLEMS: 1. Non-oliguric acute renal failure. This is most likely related to pre-renal state and dehydration with concomitant use of nephrotoxic medications at home including loop diuretic and JUSTICE inhibitor. There is also a probability of tubular injury versus tubular necrosis but I feel that is less likely. The patient has made about 2 liters or urine thus far today and I am hopeful that we will start to see an improvement in his renal function. His nephrotoxic medications have appropriately been held. Renal imaging was negative for any obstruction. He is hemodynamically stable at present. He continues with the Berry catheter for monitoring of urine output. He does have a history of diastolic congestive heart failure and he has received significant IV fluids and I am cutting the rate down of his IV fluids now. We will go ahead with a repeat chemistry in the afternoon. 2. Non-anion gap metabolic acidosis most likely secondary to renal failure. He is receiving bicarbonate containing fluids. His urinalysis was negative for Ketones. His lactic acid was also appropriate. We will continue with bicarbonate containing fluids at present and I suspect that renal function improves and urine output improves and his acidosis should improve as well. 3. Hyperkalemia is secondary to use of JUSTICE inhibitor and potassium supplements in the setting of renal failure and it has improved with fluids and repletion of bicarbonate. 4. Persistent hypoglycemia. It is likely secondary to the increased insulin half life in the setting of renal failure. All of his insulin is presently appropriately held. 5. Hypertension. Blood pressures are acceptable. He continues on Amlodipine, lisinopril and bumetanide are continued to be held. 6. History of chronic diastolic congestive heart failure. Echocardiogram is noted. His CVP was elevated. I have decreased the rate of the IV fluids. 7. Pneumatosis of the right colon. Rather benign abdominal exam. He has been seen by general surgery and started on Ciprofloxacin and Flagyl. Diet advancement is deferred to surgical service. Thank you for involving me in the care of Mr. Lamora. I will be happy to followup him along with you. AKANKSHA
[2018-06-12 09:23] LABS: C REACTIVE PROTEIN QUANTITATIV < 0.30 MG/DL (0.00-0.30); URIC ACID 7.3 MG/DL (3.5-7.2)
[2018-06-12] MEDS: HEPARIN SOD (PORCINE) 5000 UNITS/ML VIAL SC SCH ×2 (09:44→19:47)
[2018-06-12] MEDS: amLODIPine 10 MG TAB PO SCH (09:44)
[2018-06-12] MEDS: FLUTICASONE PROP 0.05% NASAL SPRAY 16 GM (FLONASE) SCH ×2 (09:44→19:46)
--- NOTE | 2018-06-12 10:25 | REP ---
RIGHT KNEE SERIES: Two views. HISTORY: Right knee pain. FINDINGS: AP and lateral views of the right knee demonstrate vascular calcification. There is osteoarthritic spurring of the superior and inferior pole of the patella. Dystrophic calcification is seen along the course of the patellar tendon consistent with chronic patellar tendonitis. No fracture or other acute bony abnormality is seen. IMPRESSION: Mild osteoarthritis. Vascular calcification. Patellar tendon calcification consistent with chronic tendonitis. No acute bony abnormality. Electronically Signed by Carmelo Salguero MD 06/12/2018 03:39 P
[2018-06-12] MEDS: MAG SULF 1GM/100ML (MAG RUN) 1 GM in APPROPRIATE DILUENT 1 EA IV SCH ×2 (11:22→12:55)
--- NOTE | 2018-06-12 11:30 | IPNPDOC ---
Date Seen The patient was seen on 06/12/18. Progress Note SUBJECTIVE: Patient was seen and examined this morning. He states that he continues to feel like he has low blood sugars. He states that at home over the past 2 weeks he has noticed that his blood sugar has been low. The patient does have documented hypoglycemia while in the hospital, he was symptomatic with lightheadedness, and his symptoms did resolve with apple juice. The patient also complains of right knee pain. He states that his is a chronic condition however, it is bothering him more today. OBJECTIVE PHYSICAL EXAMINATION: VITAL SIGNS: Please see below. GENERAL: Awake, alert, and oriented. He is sitting in his chair comfortably. He is accompanied by his HEENT: Atraumatic normocephalic. Eyes are nonicteric. Trachea is midline. Dentition is fair. CARDIOVASCULAR: Normal S1, S2. Regular rate and rhythm. No clicks rubs, or murmurs RESPIRATORY: Clear vesicular lung sounds bilaterally. No wheezes, rhonci, or rales. ABDOMINAL: Soft, nondistended. Nontender to palpation throughout. Positive bowel sounds EXTREMITIES: Mild 1-2mm pitting pretibial edema in bilateral lower extremities. Pulses are full and equal bilaterally NEUROLOGICAL: No focal neurological deficits PSYCHOLOGICAL: Mood and affect appear appropriate LABORATORY DATA, IMAGING STUDIES, MICROBIOLOGY: Please see below. DVT prophylaxis ordered?: YES ASSESSMENT AND PLAN: Patient is a 67 year old male with a past medical history of IDDM, hypertension, and asthma who presented as a transfer from [facility] for a dx of acute kidney failure. Additionally, on CT the patient was found to pneumostosis. Patient was evaluated by general surgery who did not feel it necessary to PROBLEMS: 1. Non-oliguric renal failure -Patient presented in acute renal failure. He has received IV fluid hydration. His Cr. has improved mildly. Patient is currently being followed by Nephrology. Their assistance is greatly appreciated -Patient continues to make urine. Will continue to monitor urine output and Cr. 2. IDDM with hypoglycemia -Patient has had several episodes of symptomatic hypoglycemia. He is c urrently on sliding scale and has not been receiving basal coverage. -Will continue to monitor his BGL. Continue hypoglycemic protocol 3. Hyperkalemia -Resolved. -Patient was taking JUSTICE inhibitor with potassium supplements in setting of renal failure. These medications have been held and his hyperkalemia has resolved -Will continue to monitor 4. DVT prophylaxis -Heparin Q12H A-FIB/CHADSVASC A-FIB History Current/History of A-Fib/PAF?: No VS, I&O, 24H, Fishbone Vital Signs/I&O Vital Signs Date Time Temp Pulse Resp B/P (MAP) Pulse Ox O2 Delivery O2 Flow Rate FiO2 06/12/18 09:44 71 121/56 06/12/18 08:00 98.8 20 91 I&O- Last 24 Hours up to 6 AM 06/12/18 06:00 Intake Total 2250 ml Output Total 1700 ml Balance 550 ml Laboratory Data 24H LABS Laboratory Tests 2 06/11/18 11:56: Bedside Glucose (Misc Panel) 94 06/11/18 12:13: Blood Gas Bicarbonate Standard 14.8, Venous Blood pH 7.258L, Venous Blood Partial Pressure CO2 31.3L, Venous Blood Partial Pressure O2 175.0H, Venous Blood Total Carbon Dioxide 14.6L, Venous Blood HCO3 13.7L, Venous Blood Oxygen Saturation 98.6H, Venous Blood Base Excess -12.3L, Anion Gap 11, Glomerular Filtration Rate 10.4L, Blood Urea Nitrogen 107H, Creatinine 5.84H, Sodium Level 141, Potassium Level 4.4, Chloride Level 115H, Carbon Dioxide Level 15L, Calcium Level 7.3L 06/11/18 15:35: Bedside Glucose (Misc Panel) 37*L 06/11/18 15:57: Bedside Glucose Confirm (Misc) 86 06/11/18 16:18: Bedside Glucose (Misc Panel) 77L 06/11/18 18:08: Bedside Glucose (Misc Panel) 47L 06/11/18 18:35: Bedside Glucose (Misc Panel) 118H 06/11/18 19:54: Bedside Glucose (Misc Panel) 156H 06/12/18 01:31: Bedside Glucose (Misc Panel) 98 06/12/18 04:30: Bedside Glucose (Misc Panel) 85 06/12/18 05:18: Erythrocyte Sedimentation Rate 35H, Anion Gap 10, Glomerular Filtration Rate 10.5L, Blood Urea Nitrogen 102H, Creatinine 5.81H, Sodium Level 139, Potassium Level 4.4, Chloride Level 110H, Carbon Dioxide Level 19L, Calcium Level 6.2#L, Aspartate Amino Transf (AST/SGOT) 11, Alanine Aminotransferase (ALT/SGPT) 24, Alkaline Phosphatase 93, Total Bilirubin 0.3, Uric Acid 7.3H, Total Protein 5.1L, Albumin 2.5L, Magnesium Level 1.0L, C-Reactive Protein, Quantitative < 0.3 0, Albumin/Globulin Ratio 0.96L 06/12/18 08:22: Bedside Glucose (Misc Panel) 82 CBC/BMP Laboratory Tests 06/11/18 12:13 Calcium Level 7.3 L 06/12/18 05:18 Calcium Level 6.2 #L, Aspartate Amino Transf (AST/SGOT) 11, Alanine Aminotransferase (ALT/SGPT) 24, Alkaline Phosphatase 93, Total Bilirubin 0.3, Uric Acid 7.3 H, Total Protein 5.1 L, Albumin 2.5 L GME ATTESTATION GME ATTESTATION My faculty preceptor for this patient encounter was physically present during the encounter and was fully available. All aspects of the patient interview, examination, medical decision making process, and medical care plan development were reviewed and approved by the faculty preceptor. The faculty preceptor is aware and concurs with the plan as stated in the body of this note and will attest to such by his/her cosignature. ATTENDING NOTE I, Ny Richards, have both independently examined this patient as well as reviewed the documentation. I have discussed in detail with the resident the fi ndings and plan of treatment as documented by the resident. I agree with their findings and treatment plan. I will continue to follow the patient and offer further guidance to the patients care as necessary during this hospital stay. CHUY HASSAN DO June 12, 2018 10:58 [place] RICHARDS MD June 12, 2018 14:29
[2018-06-12 12:00] VITALS: BP 136/66
[2018-06-12] MEDS ORDERED: predniSONE 10 MG TAB PO ONE (13:30)
[2018-06-12] MEDS: GABAPENTIN 300 MG CAP PO SCH (18:41)
[2018-06-12] MEDS: ATORVASTATIN 20 MG TAB PO SCH (18:42)
[2018-06-12 19:10] VITALS: BP 142/63
[2018-06-12] MEDS: ACETAMINOPHEN TAB 650MG DOSE (2X325MG) PO PRN (20:15)
[2018-06-12 21:40] VITALS: BP 127/58
[2018-06-12] MEDS ORDERED: CALCIUM GLUCONATE 1,000 MG in D5W MINI-BAG PLUS 100 ML IV ONE (23:00)
[2018-06-12] MEDS: SODIUM BICARBONATE 150 MEQ in STERILE WATER LITER BAG 1,000 ML IV SCH (23:25)
[2018-06-13] MEDS: SODIUM BICARBONATE 150 MEQ in STERILE WATER LITER BAG 1,000 ML IV SCH (02:54)
[2018-06-13] MEDS: CIPROFLOXACIN 200 MG in APPROPRIATE DILUENT 1 EA IV SCH ×2 (03:32→16:25)
[2018-06-13 04:00] VITALS: BP 130/59
[2018-06-13] MEDS: ISOSORBIDE DIN. (ISORDIL) 30 MG TAB PO SCH ×3 (06:27→21:02)
[2018-06-13] MEDS: metroNIDAZOLE 250 MG in APPROPRIATE DILUENT 1 EA IV SCH ×3 (06:27→21:02)
--- NOTE | 2018-06-13 06:40 | IPN ---
DATE OF SERVICE: 06/12/2018 SUBJECTIVE: The patient is seen and examined this morning at the bedside. He complains of localized pain in the right knee and reports that it is significantly tender. He continues with a Berry catheter with adequate urine output and while his electrolytes and acid base status are improving his renal function has not significantly improved thus far. He is tolerating an oral diet and denies any nausea, vomiting or diarrhea. VITAL SIGNS: Temperature 98.6, pulse 74, respiratory rate 18, blood pressure 142/63, saturating 94% on room air. Intake yesterday was 2875. Urine output yesterday was 2250. Net positive 625 mL. Weight on the bed scale today is not recorded. GENERAL: The patient is seen lying down in bed, head of bed elevated. Well developed male in no acute distress. His eyes are anicteric. His tongue is moist. His neck is supple. His jugular veins are mildly elevated. LUNGS: Show symmetric air entry bilaterally. No wheeze or rale. ABDOMEN: Soft. Nontender. There are bowel sounds. EXTREMITIES: Show 1+ pitting edema in the ankles and below the ward. The right knee is very tender to palpation. GENITOURINARY: Shows Berry catheter draining clear urine. NEUROLOGIC: No focal deficit. Oriented and interactive. LABS: Sodium 139, potassium 4.4, bicarbonate 19, BUN 102, creatinine 5.8, hemoglobin 9.4. Corrected calcium 7.4. Magnesium 1.0. Knee x-ray on 06/12/2018 with chronic tendinitis, patellar tendon calcification. Chest x-ray 06/12/2018 with no acute cardiopulmonary process. INPATIENT MEDICATIONS: He is started on prednisone 30 mg by mouth daily. He received 2 grams of IV magnesium sulfate. He continues on sodium bicarbonate drip at 50 mL/hr. Remainder of medications are unchanged from prior. PROBLEMS: 1. Nonoliguric acute renal failure. The patient thus far has only had minimal improvement in his blood urea nitrogen and GFR. However, there is no urgent indication for hemodialysis at present. His urine output remains adequate through the Berry catheter. We will continue to watch for ongoing signs of renal recovery. His acute kidney injury was likely mediated by a prerenal state and dehydration with concomitant use of nephrotoxic medications at home and JUSTICE inhibitor. He is on a low dose of IV fluids. There is mild hypervolemia on exam. I will plan to discontinue the IV fluids by tomorrow morning. If the renal function continues to lag over the next 48 hours, we will discuss again with him regarding hemodialysis. At present, there is no urgent indication for dialysis initiation. 2. Non anion gap metabolic acidosis secondary to renal failure. He is receiving low dose of bicarbonate containing fluids. His serum bicarbonate is improving nicely and is up to 19 today. Will plan to discontinue IV fluids in another day. 3. Persistent hypoglycemia. It is likely secondary to the increased insulin half life in the setting of renal failure. His sugars are overall improving. 4. Hypertension. Blood pressures are acceptable. No changes are being made to his current regimen at present. 5. History of chronic diastolic congestive heart failure and mild hypervolemia. CVP is elevated. Jugular veins are mildly elevated. Rate of IV fluids is minimal now and we will discontinue the IV fluids on the morning of June 13. 6. Gout of the right knee. The patient has been started on prednisone appropriately by the primary team. 7. Hypomagnesemia. He is receiving magnesium supplementation. His calcium is also low. I am giving a gram of calcium gluconate.
[2018-06-13 06:46] LABS: HEMOGLOBIN 8.7 g/dl (13.5-17.5); MEAN CORPUSCULAR HEMOGLOBIN 27.4 pg (27.0-33.0); MEAN CORPUSCULAR HGB CONC 33.5 g/dl (32.0-36.5); PLATELET COUNT, AUTOMATED 217 10^3/uL (150-450); RED BLOOD COUNT 3.17 10^6/uL (4.30-6.10); WHITE BLOOD COUNT 6.7 10^3/uL (4.0-10.0)
[2018-06-13 07:13] LABS: CREATININE FOR GFR 5.86 MG/DL (0.70-1.30)
[2018-06-13 07:14] LABS: CALCIUM LEVEL 6.5 MG/DL (8.8-10.2); GLOMERULAR FILTRATION RATE 10.4 (>49); POTASSIUM SERUM 4.4 MEQ/L (3.5-5.1)
[2018-06-13] MEDS: SYMBICORT 160/4.5MCG INHALER 6GM INH SCH ×2 (08:11→19:20)
[2018-06-13] MEDS: amLODIPine 10 MG TAB PO SCH (08:52)
[2018-06-13] MEDS: predniSONE 10 MG TAB PO SCH (08:52)
[2018-06-13] MEDS: HumaLOG INSULIN (NovoLOG) PER UNIT SC SCH ×4 (08:52→20:23)
[2018-06-13] MEDS: FLUTICASONE PROP 0.05% NASAL SPRAY 16 GM (FLONASE) SCH ×2 (08:53→20:23)
[2018-06-13] MEDS: HEPARIN SOD (PORCINE) 5000 UNITS/ML VIAL SC SCH ×2 (08:53→20:22)
[2018-06-13] MEDS ORDERED: LEVEMIR (INSULIN DETEMIR) 1 UNITS/0.01ML SC SCH ×3 (09:00→21:00)
[2018-06-13 10:42] LABS: MAGNESIUM LEVEL 1.5 MG/DL (1.8-2.4)
[2018-06-13] MEDS: MAG SULF 1GM/100ML (MAG RUN) 1 GM in APPROPRIATE DILUENT 1 EA IV SCH ×2 (11:38→12:58)
--- NOTE | 2018-06-13 11:50 | IPNPDOC ---
Date Seen The patient was seen on 06/13/18. Progress Note SUBJECTIVE: Patient was seen and examined this morning. He currently has no new complaints. He continues to mention that the kurtz catheter is uncomfortable. OBJECTIVE PHYSICAL EXAMINATION: VITAL SIGNS: Please see below. GENERAL: Awake, alert and oriented. Sitting in chair comfortably in no acute distress HEENT: Atrumatic normocephalic. Eyes are nonicteric. Trachea is midline. Dentition is fair CARDIOVASCULAR: Normal S1, S2. Regular rate and rhythm. No clicks, rubs, murmurs. RESPIRATORY: Clear vesicular breath sounds bilaterally. No wheezes, rhonci, or rales ABDOMINAL: Soft, nondistended. Nontender to palpation throughout. No rebound tenderness or guarding. Positive bowel sounds. Kurtz catheter in place EXTREMITIES: No edema. Full and equal pulses in bilateral upper and lower ext remities NEUROLOGICAL: No focal neurological deficits noted PSYCHOLOGICAL: Mood and affect seems appropriate LABORATORY DATA, IMAGING STUDIES, MICROBIOLOGY: Please see below. DVT prophylaxis ordered?: YES ASSESSMENT AND PLAN: Patient is a 67 year old male with a past medical history of IDDM, hypertension, and asthma who presented as a transfer from [facility] for a dx of acute kidney failure. Additionally, on CT the patient was found to pneumostosis. Patient was evaluated by general surgery who did not feel it necessary to PROBLEMS: 1. Non-oliguric renal failure -Patient presented in acute renal failure. He has received IV fluid hydration. His Cr. has improved mildly. Patient is currently being followed by Nephrology. Their assistance is greatly appreciated -Patient continues to make urine. Will continue to monitor urine output and Cr. -Patients Cr has not improved significantly. Per Nephrology he will receive a Permacath placement. He will likely be on dialysis. His renal failure may be secondary to ATN. 2. IDDM with hypoglycemia -Patient has had several episodes of symptomatic hypoglycemia. He is currently on sliding scale and has not been receiving basal coverage. -Will continue to monitor his BGL. Continue hypoglycemic protocol 3. Hyperkalemia -Resolved. -Patient was taking JUSTICE inhibitor with potassium supplements in setting of renal failure. These medications have been held and his hyperkalemia has resolved -Will continue to monitor 4. DVT prophylaxis -Heparin Q12H A-FIB/CHADSVASC A-FIB History Current/History of A-Fib/PAF?: No VS, I&O, 24H, Fishbone Vital Signs/I&O Vital Signs Date Time Temp Pulse Resp B/P (MAP) Pulse Ox O2 Delivery O2 Flow Rate FiO2 06/13/18 08:52 72 120/58 06/13/18 04:00 98.1 18 93 I&O- Last 24 Hours up to 6 AM 06/13/18 06:00 Intake Total 2720 ml Output Total 1050 ml Balance 1670 ml Laboratory Data 24H LABS Laboratory Tests 2 06/12/18 11:46: Bedside Glucose (Misc Panel) 168H 06/12/18 17:00: Bedside Glucose (Misc Panel) 231H 06/12/18 19:42: Bedside Glucose (Misc Panel) 331H 06/13/18 06:19: Nucleated Red Blood Cells % (auto) 0.0, Anion Gap 14, Glomerular Filtration Rate 10.4L, Blood Urea Nitrogen 100H, Creatinine 5.86H, Sodium Level 132#L, Potassium Level 4.4, Chloride Level 102, Carbon Dioxide Level 16L, Calcium Level 6.5L, Magnesium Level 1.5L 06/13/18 11:33: Bedside Glucose (Misc Panel) 398H CBC/BMP Laboratory Tests 06/13/18 06:19 Red Blood Count 3.17 L, Mean Corpuscular Volume 82.0, Mean Corpuscular Hemoglobin 27.4, Mean Corpuscular Hemoglobin Concent 33.5, Red Cell Distribution Width 14.6 H, Calcium Level 6.5 L GME ATTESTATION GME ATTESTATION My faculty preceptor for this patient encounter was physically present during the encounter and was fully available. All aspects of the patient interview, examination, medical decision making process, and medical care plan development were reviewed and approved by the faculty preceptor. The faculty preceptor is aware and concurs with the plan as stated in the body of this note and will attest to such by his/her cosignature. ATTENDING NOTE I, Ny Newell, have both independently examined this patient as well as reviewed the documentation. I have discussed in detail with the resident the findings and plan of treatment as documented by the resident. I agree with their findings and treatment plan. I will continue to follow the patient and offer further guidance to the patients care as necessary during this hospital stay. CHUY HASSAN DO June 13, 2018 11:50 [place] NEWELL MD June 13, 2018 14:03
[2018-06-13 13:54] LABS: PTH INTACT 228.4 PG/ML (18.5-88.0)
[2018-06-13 14:00] VITALS: BP 131/62
[2018-06-13] MEDS ORDERED: LIDOCAINE 2% MDV 20 ML VIAL As Ordered ONE (15:33)
[2018-06-13] MEDS ORDERED: HEPARIN 1,000 UNITS/ML 10ML VIAL (FOR RADIOLOGY& DIALYSIS ONLY) As Ordered ONE (15:33)
[2018-06-13] MEDS ORDERED: BUPIVACAINE HCL 0.5% 10 ML VIAL As Ordered ONE (15:33)
[2018-06-13] MEDS: GABAPENTIN 300 MG CAP PO SCH (17:46)
[2018-06-13] MEDS: ATORVASTATIN 20 MG TAB PO SCH (17:46)
[2018-06-13] MEDS: ACETAMINOPHEN TAB 650MG DOSE (2X325MG) PO PRN (17:47)
[2018-06-13] MEDS ORDERED: HumaLOG INSULIN (NovoLOG) PER UNIT SC ONE ×2 (20:00→23:30)
--- NOTE | 2018-06-13 20:02 | IPNPDOC ---
Text Note Date of Service The patient was seen on 06/13/18. NOTE Blood sugar has been running high this afternoon; now >500. Pt is taking orally, and is on Levemir 10 units bid. Will give one dose of NovoLog 14 units, and increase Levemir to 15 units bid. A-FIB/CHADSVASC A-FIB History Current/History of A-Fib/PAF?: No VS,Fishbone, I+O VS, Fishbone, I+O Laboratory Tests 06/13/18 06:19 Red Blood Count 3.17 L, Mean Corpuscular Volume 82.0, Mean Corpuscular Hemoglobin 27.4, Mean Corpuscular Hemoglobin Concent 33.5, Red Cell Distribution Width 14.6 H, Calcium Level 6.5 L Vital Signs Date Time Temp Pulse Resp B/P (MAP) Pulse Ox O2 Delivery O2 Flow Rate FiO2 06/13/18 14:07 131/62 06/13/18 14:00 98.7 73 16 95 I&O- Last 24 Hours up to 6 AM 06/13/18 05:59 Intake Total 2500 ml Output Total 1650 ml Balance 850 ml ALEXANDR ERVIN MD June 13, 2018 20:02
[2018-06-13 21:37] VITALS: BP 128/62
[2018-06-13] MEDS: ALBUTEROL SULFATE 2.5 MG/0.5 ML INH NEB SOLN INH PRN (21:49)
[2018-06-13] MEDS ORDERED: FUROSEMIDE 40 MG/4 ML VIAL (J1940) IV ONE (22:45)
[2018-06-13 23:09] LABS: ACETONE/KETONE 1.65 MG/DL (<2.81); CALCIUM LEVEL 6.5 MG/DL (8.8-10.2); CREATININE FOR GFR 5.88 MG/DL (0.70-1.30); GLOMERULAR FILTRATION RATE 10.3 (>49); POTASSIUM SERUM 4.5 MEQ/L (3.5-5.1)
[2018-06-14] MEDS: CIPROFLOXACIN 200 MG in APPROPRIATE DILUENT 1 EA IV SCH ×2 (03:48→18:19)
--- NOTE | 2018-06-14 04:00 | IPN ---
DATE OF SERVICE: 06/13/2018 SUBJECTIVE: The patient is seen and examined this morning at the bedside. He reports his right knee feels better after starting prednisone. His sugars have been elevated. The primary team has adjusted his insulin. His renal function does not show much improvement and I discussed with him that we will arrange for PermaCath placement and first hemodialysis treatment tomorrow. The patient is in agreement. VITAL SIGNS: Temperature 98.7, pulse 73, respiratory rate 16, blood pressure 131/62 saturating 95% on room air. Intake yesterday was 1989. Urine output yesterday was 1400, net positive 590. Weight on the bed scale today is 91.4 kg. PHYSICAL EXAMINATION: GENERAL: The patient is seen lying in bed, awake, alert, and oriented. Family members present at the bedside. Extraocular muscles are intact. Tongue is moist. Neck veins are mildly elevated. Eyes are anicteric. RESPIRATORY: Lungs show symmetric air entry. No wheeze or crackles. ABDOMEN: The abdomen is soft and nontender. There are bowel sounds. EXTREMITIES: Show 1+ pitting edema in the ankles and below the shins. The right knee is less tender to palpation. GENITOURINARY (): Shows Berry catheter draining clear urine. NEUROLOGIC: No focal deficits. Oriented and interactive. LABORATORY DATA: White count 6.7, hemoglobin 8.7, platelets 217. Sodium 132, potassium 4.4, bicarbonate 16, BUN 100, creatinine 5.8, magnesium 1.5, parathyroid hormone 228. INPATIENT MEDICATIONS: Reviewed by myself. He received - calcium gluconate - he received 1 gram of calcium gluconate - magnesium sulfate - he also received 2 grams of magnesium sulfate - Flagyl - he continues on Flagyl - ciprofloxacin - he continues on ciprofloxacin - I discontinued his intravenous (IV) fluids - insulin - his insulin was adjusted per the primary team The remainder of medications are unchanged from prior. PROBLEMS: 1. Nonoliguric acute renal failure in the setting of a prerenal state, dehydration with concomitant use of JUSTICE inhibitor and loop diuretic. The patient has received supportive care with IV fluids and with discontinuation of nephrotoxic medications for the past several days. He has not had significant improvement in his renal function. His glomerular filtration rate (GFR) remains 10 mL per minute. There is mild hypervolemia on exam. I am discontinuing the intravenous (IV) fluids. I have discussed with him that we will arrange for a PermaCath placement and hemodialysis tomorrow. I have also discussed with him regarding likelihood of renal recovery. He is in agreement for hemodialysis initiation. 2. Metabolic acidosis. It is secondary to renal failure. I am discontinuing the bicarbonate-containing intravenous (IV) fluids as he is having increase in daily weights and leg edema. His acidosis will improve with dialysis tomorrow. 3. Hypertension. Blood pressures are acceptable and no changes are being made to the current regimen. 4. Chronic diastolic congestive heart failure presently with mild exacerbation in the setting of renal failure. Elevated central venous pressure (CVP) on echocardiogram. Discontinue intravenous (IV) fluids. Will give a dose of Lasix and plan to remove a gentle amount of fluid with hemodialysis tomorrow. 5. Hypomagnesemia. He is receiving magnesium supplementation. 6. Elevated parathyroid hormone level. It is secondary to hypocalcemia. Will also check a vitamin D level and start calcitriol as needed.
[2018-06-14] MEDS: metroNIDAZOLE 250 MG in APPROPRIATE DILUENT 1 EA IV SCH ×3 (05:28→22:58)
[2018-06-14] MEDS: ISOSORBIDE DIN. (ISORDIL) 30 MG TAB PO SCH ×3 (05:28→22:57)
[2018-06-14 05:50] LABS: HEMATOCRIT 23.1 % (42.0-52.0); HEMOGLOBIN 7.9 g/dl (13.5-17.5); MEAN CORPUSCULAR HEMOGLOBIN 27.1 pg (27.0-33.0); MEAN CORPUSCULAR HGB CONC 34.2 g/dl (32.0-36.5); MEAN CORPUSCULAR VOLUME 79.1 fl (80.0-96.0); PLATELET COUNT, AUTOMATED 221 10^3/uL (150-450); RED BLOOD COUNT 2.92 10^6/uL (4.30-6.10)
[2018-06-14 05:58] VITALS: BP 145/67
[2018-06-14 06:14] LABS: PERCENT SATURATION 32.1 % (19.7-50.0)
[2018-06-14] MEDS: SYMBICORT 160/4.5MCG INHALER 6GM INH SCH ×2 (07:18→19:46)
[2018-06-14 07:29] LABS: BLOOD UREA NITROGEN 114 MG/DL (7-18); CALCIUM LEVEL 6.5 MG/DL (8.8-10.2); CARBON DIOXIDE LEVEL 20 MEQ/L (21-32); CHLORIDE LEVEL 99 MEQ/L (98-107); CHOLESTEROL LEVEL 58 MG/DL (<200); CREATININE FOR GFR 5.89 MG/DL (0.70-1.30); GLOMERULAR FILTRATION RATE 10.3 (>49); GLUCOSE, FASTING 487 MG/DL (70-100); HDL CHOLESTEROL 29 MG/DL (>40); LDL CHOLESTEROL 12 MG/DL (<100); NON-HDL-C 29 MG/DL; POTASSIUM SERUM 4.5 MEQ/L (3.5-5.1); SODIUM LEVEL 130 MEQ/L (136-145); TRIGLYCERIDES LEVEL 84 MG/DL (<150)
[2018-06-14] MEDS: HumaLOG INSULIN (NovoLOG) PER UNIT SC SCH ×4 (08:16→20:58)
[2018-06-14] MEDS: HEPARIN SOD (PORCINE) 5000 UNITS/ML VIAL SC SCH ×2 (08:18→20:57)
[2018-06-14] MEDS: amLODIPine 10 MG TAB PO SCH (08:18)
[2018-06-14] MEDS: predniSONE 10 MG TAB PO SCH ×2 (08:18→08:22)
[2018-06-14] MEDS: FLUTICASONE PROP 0.05% NASAL SPRAY 16 GM (FLONASE) SCH ×2 (08:19→20:56)
[2018-06-14] MEDS ORDERED: PNEUMOCOCCAL VACCINE 0.5ML SYRINGE(90732) PNEUMOVAX 23 IM ONE (09:00)
[2018-06-14] MEDS ORDERED: LEVEMIR (INSULIN DETEMIR) 1 UNITS/0.01ML SC SCH ×2 (09:00)
[2018-06-14 09:33] LABS: HEPATITIS B SURFACE ANTIBODY NEGATIVE (POSITIVE)
[2018-06-14 09:39] LABS: TOTAL 25(OH) VITAMIN D 9.3 NG/ML (30.0-100.0)
[2018-06-14 09:44] LABS: HEPATITIS B SURFACE ANTIGEN NEGATIVE (NEGATIVE)
[2018-06-14 10:11] LABS: HEPATITIS B CORE ANTIBODY IGM NEGATIVE (NEGATIVE); HEPATITIS C VIRUS ABY INDEX < 0.0 INDEX (<0.8)
[2018-06-14] MEDS ORDERED: DARBEPOETIN 100 MCG/0.5 ML *DIALYSIS* SYRINGE (J0882) IV SCH (11:30)
--- NOTE | 2018-06-14 11:45 | IPNPDOC ---
Date Seen The patient was seen on 06/14/18. Progress Note SUBJECTIVE: Patient was seen and examined this morning. He had his Permacath placed yesterday for dialysis today. There have been no adverse events reported overnight. He denies any nausea, vomiting, diarrhea or constipation OBJECTIVE PHYSICAL EXAMINATION: VITAL SIGNS: Please see below. GENERAL: Awake, alert, and oriented. He appears in no acute distress. He is lying comfortably in bed HEENT: Atrumatic normocephalic. Eyes are nonicteric. Trachea is midline Dentition is good. Mucous membranes are pink and moist CARDIOVASCULAR: Normal S1, S2. Regular rate and rhythm. No clicks rubs or mu rmurs. Permacath present on right chest. RESPIRATORY: Clear vesicular breath sounds bilaterally with good respiratory effort. No wheezes, rhonci, or rales ABDOMINAL: Soft, nontender to palpation. No rebound tenderness or guarding. Positive bowel sounds throughout EXTREMITIES: 2mm pitting edema. Full and equal pulses in bilateral upper and lower extremities NEUROLOGICAL: No focal neurological deficits PSYCHOLOGICAL: Mood and affect seem appropriate LABORATORY DATA, IMAGING STUDIES, MICROBIOLOGY: Please see below. DVT prophylaxis ordered?: YES ASSESSMENT AND PLAN: Patient is a 67 year old male with a past medical history of IDDM, hypertension, and asthma who presented as a transfer from [facility] for a dx of acute kidney failure. Additionally, on CT the patient was found to pneumostosis. Patient was evaluated by general surgery who did not feel it necessary to PROBLEMS: 1. Non-oliguric renal failure -Patient presented in acute renal failure. He has received IV fluid h ydration. His Cr. has improved mildly. Patient is currently being followed by Nephrology. Their assistance is greatly appreciated -Patient continues to make urine. Will continue to monitor urine output and Cr. -Patients Cr has not improved significantly. He received Permacath yesterday -Plan for dialysis today 2. IDDM with hypoglycemia -Patient has had several episodes of symptomatic hypoglycemia. He is currently on sliding scale and has not been receiving basal coverage. -This morning he was hyperglycemic. We have started his basal coverage. Will continue to monitor BGL 3. Hyperkalemia -Resolved. -Patient was taking JUSTICE inhibitor with potassium supplements in setting of renal failure. These medications have been held and his hyperkalemia has resolved -Will continue to monitor 4. DVT prophylaxis -Heparin Q12H A-FIB/CHADSVASC A-FIB History Current/History of A-Fib/PAF?: No VS, I&O, 24H, Fishbone Vital Signs/I&O Vital Signs Date Time Temp Pulse Resp B/P (MAP) Pulse Ox O2 Delivery O2 Flow Rate FiO2 06/14/18 08:18 70 145/67 06/14/18 05:58 98.7 18 94 I&O- Last 24 Hours up to 6 AM 06/14/18 06:00 Intake Total 1770 ml Output Total 1535 ml Balance 235 ml Laboratory Data 24H LABS Laboratory Tests 2 06/13/18 11:33: Bedside Glucose (Misc Panel) 398H 06/13/18 17:11: Bedside Glucose (Misc Panel) 484H 06/13/18 19:54: Bedside Glucose (Misc Panel) 504*H 06/13/18 20:06: Bedside Glucose Confirm (Misc) 498*H 06/13/18 21:19: Bedside Glucose (Misc Panel) 542*H 06/13/18 22:15: Bedside Glucose (Misc Panel) 531*H 06/13/18 22:31: Bedside Glucose Confirm (Misc) 507*H, Anion Gap 12, Glomerular Filtration Rate 10.3L, Blood Urea Nitrogen 109H, Creatinine 5.88H, Sodium Level 130L, Potassium Level 4.5, Chloride Level 99, Carbon Dioxide Level 19L, Calcium Level 6.5L, B- Hydroxybutyrate 1.65 06/14/18 01:41: Bedside Glucose (Misc Panel) 485H 06/14/18 05:25: Nucleated Red Blood Cells % (auto) 0.0, Anion Gap 11, Glomerular Filtration Rate 10.3L, Calcium Level 6.5L, Iron Level 53L, Total Iron Binding Capacity 165L, Transferrin % Saturation 32.1, Ferritin 153, Triglycerides Level 84, LDL Cholesterol 12, Total Cholesterol 58, Non-HDL Cholesterol (LDL + VLDL) 29, Total HDL Cholesterol 29L, Cholesterol/HDL Ratio 2.000, 25-Hydroxy Vitamin D Total 9.3L, Hepatitis B Surface Antigen NEGATIVE, Hepatitis B Surface Antibody NEGATIVE, Hepatitis B Core IgM Antibody NEGATIVE, Hepatitis C Antibody Index < 0.0 06/14/18 07:07: Bedside Glucose (Misc Panel) 497H CBC/BMP Laboratory Tests 06/13/18 22:31 Calcium Level 6.5 L 06/14/18 05:25 Red Blood Count 2.92 L, Mean Corpuscular Volume 79.1 L, Mean Corpuscular Hemoglobin 27.1, Mean Corpuscular Hemoglobin Concent 34.2, Red Cell Distribution Width 14.2 GME ATTESTATION GME ATTESTATION My faculty preceptor for this patient encounter was physically present during the encounter and was fully available. All aspects of the patient interview, examination, medical decision making process, and medical care plan development were reviewed and approved by the faculty preceptor. The faculty preceptor is aware and concurs with the plan as stated in the body of this note and will attest to such by his/her cosignature. ATTENDING NOTE I, Ny Richards, have both independently examined this patient as well as reviewed the documentation. I have discussed in detail with the resident the findings and plan of treatment as documented by the resident. I agree with their findings and treatment plan. I will continue to follow the patient and offer further guidance to the patients care as necessary during this hospital stay. CHUY HASSAN DO June 14, 2018 11:45 [place] RICHARDS MD June 14, 2018 16:38
[2018-06-14] MEDS ORDERED: HEPARIN 1,000 UNITS/ML 10ML VIAL (FOR RADIOLOGY& DIALYSIS ONLY) XX ONE (13:15)
[2018-06-14 14:00] VITALS: BP 152/66
[2018-06-14 17:15] VITALS: BP 172/80
[2018-06-14] MEDS: ATORVASTATIN 20 MG TAB PO SCH (18:08)
[2018-06-14] MEDS: GABAPENTIN 300 MG CAP PO SCH (18:08)
[2018-06-14 20:10] VITALS: BP 164/72
[2018-06-14] MEDS: LEVEMIR (INSULIN DETEMIR) 1 UNITS/0.01ML SC SCH (20:57)
[2018-06-14 22:00] VITALS: BP 156/74
[2018-06-14] MEDS: ALBUTEROL SULFATE 2.5 MG/0.5 ML INH NEB SOLN INH PRN (22:43)
[2018-06-15] MEDS: CIPROFLOXACIN 200 MG in APPROPRIATE DILUENT 1 EA IV SCH (03:52)
[2018-06-15 04:00] VITALS: BP 144/64
[2018-06-15 06:00] VITALS: BP 144/64
[2018-06-15] MEDS: metroNIDAZOLE 250 MG in APPROPRIATE DILUENT 1 EA IV SCH (06:05)
[2018-06-15] MEDS: ISOSORBIDE DIN. (ISORDIL) 30 MG TAB PO SCH ×3 (06:06→21:05)
[2018-06-15 06:37] LABS: HEMOGLOBIN 8.3 g/dl (13.5-17.5); MEAN CORPUSCULAR HEMOGLOBIN 26.9 pg (27.0-33.0); MEAN CORPUSCULAR HGB CONC 33.2 g/dl (32.0-36.5); MEAN CORPUSCULAR VOLUME 81.2 fl (80.0-96.0); PLATELET COUNT, AUTOMATED 231 10^3/uL (150-450); RED BLOOD COUNT 3.08 10^6/uL (4.30-6.10); WHITE BLOOD COUNT 9.8 10^3/uL (4.0-10.0)
[2018-06-15 06:50] LABS: CALCIUM LEVEL 6.9 MG/DL (8.8-10.2); CREATININE FOR GFR 4.29 MG/DL (0.70-1.30); GLOMERULAR FILTRATION RATE 14.9 (>49); POTASSIUM SERUM 3.8 MEQ/L (3.5-5.1)
[2018-06-15] MEDS: HumaLOG INSULIN (NovoLOG) PER UNIT SC SCH ×4 (07:30→21:00)
[2018-06-15] MEDS: predniSONE 10 MG TAB PO SCH (08:04)
[2018-06-15] MEDS: HEPARIN SOD (PORCINE) 5000 UNITS/ML VIAL SC SCH ×2 (08:05→21:03)
[2018-06-15] MEDS: LEVEMIR (INSULIN DETEMIR) 1 UNITS/0.01ML SC SCH ×2 (08:06→21:05)
[2018-06-15] MEDS: amLODIPine 10 MG TAB PO SCH (08:09)
[2018-06-15] MEDS: FLUTICASONE PROP 0.05% NASAL SPRAY 16 GM (FLONASE) SCH ×2 (08:09→21:05)
--- NOTE | 2018-06-15 08:16 | IPN ---
DATE OF SERVICE: 06/14/2018 SUBJECTIVE: The patient is seen and examined this morning at the bedside. He had a PermaCath placed in the right chest wall. He is for a first hemodialysis treatment this afternoon. He is in good spirits. Family members are present at the bedside. He reports his right knee pain is completely resolved. I discussed with him that we can also remove his Berry catheter. Labs show some increasing anemia, which may be secondary to hemodilution. He reports a good appetite and good oral intake. He had many questions regarding dialysis and all of them were addressed at length at the bedside. VITAL SIGNS: Temperature 98.2, pulse 73, respiratory rate 18, blood pressure 152/66, saturating 95% on room air. Intake yesterday was 1850. Urine output yesterday was 1200. Urine output thus far today is 1200. Goal fluid removal with dialysis is 1 liter. PHYSICAL EXAMINATION: GENERAL: Patient is seen lying in bed, awake, alert, oriented and comfortable, in no acute distress. Extraocular muscles are intact. Tongue is moist. Neck supple. Jugular veins are mildly elevated. Tunneled hemodialysis catheter present right chest wall with dressing. Clean, dry and intact. Cardiac S1, S2, regular rate and rhythm. Lungs show symmetric air entry bilaterally. No rales or wheeze. Abdomen is soft and nontender. There are bowel sounds. The lower extremities show 1+ pitting edema bilaterally. Genitourinary shows indwelling Berry. Neurologic no focal deficits. Oriented times three, interactive and appropriate. Psychiatric appropriate mood and affect. LABORATORY DATA: White count 9.0, hemoglobin 7.9, platelets 221. Sodium 130, potassium 4.5, BUN 114, creatinine 5.8, glucose 487, PTH 228, vitamin D 9.3. INPATIENT MEDICATIONS: I started him on Aranesp 100 mcg with dialysis. Insulin was adjusted per the primary team. I started him on vitamin D 50,000 units by mouth once a week. He was also given a one time dose of Lasix yesterday. PROBLEMS: 1. Nonoliguric renal failure in the setting of a prerenal state/dehydration with concomitant use of JUSTICE inhibitor and loop diuretic. Urinalysis was benign and negative for any significant blood or protein. Renal function has been plateaued over the course of this admission without any real improvement. There is mild ongoing metabolic acidosis. He had a PermaCath placed and he is for his first hemodialysis treatment this afternoon. I am hopeful that it may be a temporary hemodialysis dependence. We will plan to removed 1 liter of fluid with the dialysis treatment today and if he has no improvement in renal function by early next week then he will require outpatient hemodialysis chair arrangement. 2. Chronic diastolic congestive heart failure presently with mild exacerbation in the setting of renal failure. Elevated central venous pressure (CVP) and peripheral edema. The patient got a dose of Lasix yesterday. I plan to remove 1 liter fluid with hemodialysis today. 3. Secondary hyperparathyroidism. He was started on once weekly vitamin D and he will be dialyzed with a 3.0 mEq calcium bath in view of the hypocalcemia. His parathyroid hormone level is in the 200s, which is acceptable in the dialysis setting. 4. Insulin dependent diabetes mellitus. Sugars are now uncontrolled. It is likely due to combination prednisone that he received and also the fact that his insulins were previously cut back on due to recurrent hypoglycemia when he first arrived. Insulin is adjusted per the primary team. 5. Microcytic anemia. Hemoglobin 7.9 today. Transferrin saturation is at 32%. Some of the anemia might be related to hemodilution given that he is volume overloaded. We will remove 1 liter of fluid with his first dialysis treatment today and he is also started on Aranesp.
[2018-06-15] MEDS: SYMBICORT 160/4.5MCG INHALER 6GM INH SCH ×2 (08:57→19:38)
[2018-06-15] MEDS ORDERED: VITAMIN D 50,000 UNITS CAPSULE (ERGOCALCIFEROL 1.25MG) PO SCH (09:00)
[2018-06-15] MEDS ORDERED: HEPARIN 1,000 UNITS/ML 10ML VIAL (FOR RADIOLOGY& DIALYSIS ONLY) IV ONE (10:45)
[2018-06-15] MEDS ORDERED: HEPARIN 1,000 UNITS/ML 10ML VIAL (FOR RADIOLOGY& DIALYSIS ONLY) XX ONE (10:45)
--- NOTE | 2018-06-15 12:25 | IPNPDOC ---
Date Seen The patient was seen on 06/15/18. Progress Note SUBJECTIVE: Patient was seen and examined this morning. He currently states that he is feeling well. He had received dialysis yesterday. He states that it went well although he is tired. He does have some pain in his left knee from gout. He had been on prednisone but would like to have his dose reduced. OBJECTIVE PHYSICAL EXAMINATION: VITAL SIGNS: Please see below. GENERAL: Awake, alert, and oriented. He appears in no acute distress. He is lying comfortably in bed HEENT: Atrumatic normocephalic. Eyes are nonicteric. Trachea is midline Dentition is good. Mucous membranes are pink and moist CARDIOVASCULAR: Normal S1, S2. Regular rate and rhythm. No clicks rubs or murmurs. Permacath present on right chest. RESPIRATORY: Clear vesicular breath sounds bilaterally with good respiratory e ffort. No wheezes, rhonci, or rales ABDOMINAL: Soft, nontender to palpation. No rebound tenderness or guarding. Positive bowel sounds throughout EXTREMITIES: 2mm pitting edema. Full and equal pulses in bilateral upper and lower extremities. Left knee without swelling or erythema. No tenderness to palpation. No effusion NEUROLOGICAL: No focal neurological deficits PSYCHOLOGICAL: Mood and affect seem appropriate LABORATORY DATA, IMAGING STUDIES, MICROBIOLOGY: Please see below. DVT prophylaxis ordered?: YES ASSESSMENT AND PLAN: ASSESSMENT AND PLAN: Patient is a 67 year old male with a past medical history of IDDM, hypertension, and asthma who presented as a transfer from [facility] for a dx of acute kidney failure. Additionally, on CT the patient was found to pneumostosis. Patient was evaluated by general surgery who did not feel it necessary to PROBLEMS: 1. Non-oliguric renal failure -Patient presented in acute renal failure. He has received IV fluid hydration. His Cr. has improved mildly. Patient is currently being followed by Nephrology. Their assistance is greatly appreciated -Patient continues to make urine. Will continue to monitor urine output and Cr. -Patients Cr has not improved significantly. He has had PermaCath placed -Patient had received dialysis yesterday. His Cr has improved. He may receive additional dialysis today. Nephrology is following. Help is greatly appreciated 2. IDDM with hypoglycemia -Patient has had several episodes of symptomatic hypoglycemia. He is currently on sliding scale and has not been receiving basal coverage. -This morning he was hyperglycemic. We have started his basal coverage. Will continue to monitor BGL 3. Hyperkalemia -Resolved. -Patient was taking JUSTICE inhibitor with potassium supplements in setting of renal failure. These medications have been held and his hyperkalemia has resolved -Will continue to monitor 4. Chronic Diastolic Congestive Heart Failure -Patient has had 1 liter of fluid removed with dialysis yesterday 5. Anemia -Patient was started on Aranesp by Nephrology with dialysis. 6. Gout -Patient has been on Prednisone. He has been hyperglycemic likely due to his steroid. He was previously not on insulin as he was hypoglycemic when first hospitalized -Patient has requested his dose to be reduced. Prednisone has been reduced to 20mg daily. 7. DVT prophylaxis -Heparin Q12H A-FIB/CHADSVASC A-FIB History Current/History of A-Fib/PAF?: No VS, I&O, 24H, Fishbone Vital Signs/I&O Vital Signs Date Time Temp Pulse Resp B/P (MAP) Pulse Ox O2 Delivery O2 Flow Rate FiO2 06/15/18 08:09 69 126/56 06/15/18 06:00 98.3 18 93 I&O- Last 24 Hours up to 6 AM 06/15/18 06:00 Intake Total 1490 ml Output Total 1875 ml Balance -385 ml Laboratory Data 24H LABS Laboratory Tests 2 06/14/18 17:13: Bedside Glucose (Misc Panel) 267H 06/14/18 20:41: Bedside Glucose (Misc Panel) 279H 06/15/18 06:22: Nucleated Red Blood Cells % (auto) 0.0, Anion Gap 8, Glomerular Filtration Rate 14.9L, Blood Urea Nitrogen 67H, Creatinine 4.29H, Sodium Level 136, Potassium Level 3.8, Chloride Level 104, Carbon Dioxide Level 24, Calcium Level 6.9L 06/15/18 11:15: Bedside Glucose (Misc Panel) 219H CBC/BMP Laboratory Tests 06/15/18 06:22 Red Blood Count 3.08 L, Mean Corpuscular Volume 81.2, Mean Corpuscular Hemoglobin 26.9 L, Mean Corpuscular Hemoglobin Concent 33.2, Red Cell Distribution Width 14.5, Calcium Level 6.9 L GME ATTESTATION GME ATTESTATION My faculty preceptor for this patient encounter was physically present during the encounter and was fully available. All aspects of the patient interview, examination, medical decision making process, and medical care plan development were reviewed and approved by the faculty preceptor. The faculty preceptor is aware and concurs with the plan as stated in the body of this note and will attest to such by his/her cosignature. ATTENDING NOTE I, Ny Richards, have both independently examined this patient as well as reviewed the documentation. I have discussed in detail with the resident the findings and plan of treatment as documented by the resident. I agree with their findings and treatment plan. I will continue to follow the patient and offer further guidance to the patients care as necessary during this hospital stay. CHUY HASSAN DO June 15, 2018 12:25 [place] RICHARDS MD June 15, 2018 14:42
[2018-06-15] MEDS: predniSONE 20 MG TAB PO SCH (13:14)
--- NOTE | 2018-06-15 13:38 | IPN ---
DATE: 06/15/2018 Mr. Scott is seen this morning on his bedside. He is feeling better and his weakness and balance problem is slightly improved. He was admitted with generalized weakness and falling due to poor balance. He was found to have advanced renal failure without any obvious reason. He was hydrated and has significant edema now. His kidney function has not improved and he was dialyzed yesterday for first time. He does have longstanding history of diabetes and congestive heart failure. He has been on high-dose diuretic with bumetanide 2 mg twice a day in addition to lisinopril. His urinalysis was negative for any protein or blood and there is no other history suggestive of any nephrotoxic drug use. At this point he seems to be dialysis dependent until his kidney function improves. Today, he denies any dyspnea, chest pain, nausea or vomiting and reports a good appetite. His daughter does report that he has lost about 40 pounds weight during the last 4 months. He does have peripheral edema and was noticed to have elevated central venous pressure on echocardiogram. PHYSICAL EXAMINATION: Temperature 98.3 degrees Fahrenheit, heart rate 72 per minute and respiratory rate 18 per minute. Blood pressure 126/56 mmHg and oxygen saturation 93% on room air. His head is atraumatic. Neck is supple and jugular venous distention (JVD) is mildly elevated. He does have a Perma-Cath in his right internal jugular vein. He does not have any oral thrush or ulcers. Ears, nose and throat are unremarkable. His heart sounds are regular and without a pericardial friction rub. Lungs: Sound clear to auscultation with slightly diminished breath sounds at bases. Abdomen is soft and nontender. Bowel sounds are normal. There is no palpable organomegaly. Extremities: Have no cyanosis or clubbing. Lower extremity edema is still about 2+. Neurologically he is awake, alert and oriented times three. His medications are reviewed and the only change is noticed that his prednisone dose has been cut down to 20 mg daily. Ciprofloxacin and metronidazole have been stopped. There is no obvious infections. His lisinopril has already been stopped and he is currently on amlodipine 10 mg daily for blood pressure control. Today's labs include a chemistry which showed sodium 136, potassium 3.8, CO2 24, BUN 67 and creatinine 4.29. Glucose 267 and calcium 6.9. PROBLEMS: 1. Renal failure: The patient has advanced renal failure and has required dialysis. He was dialyzed yesterday and we will plan to dialyze him again today. He is certainly not dehydrated and there is no post obstructive problems as his CT scan of abdomen and pelvis was negative for obstruction. The patient will be dialyzed for 3 hours today. 2. Volume overload with peripheral edema and history of diastolic congestive heart failure. His volume status is decompensated and we will removed 2 liters of fluid today with dialysis. 3. Anemia: He does have chronic anemia probably related to kidney disease. His iron studies seem to be appropriate with total iron of 53 and ferritin 153. We have already started him on Aranesp which he will receive once a week with dialysis. 4. Generalized weakness and imbalance: Probably the patient has chronic renal failure with uremia which was causing his symptoms. If his symptoms completely resolve with couple of more dialysis treatments, then it is very much likely that all his problems were related to advanced renal failure. Unfortunately, there is no obvious reason. We will consider doing a diagnostic kidney biopsy next week. The patient and his daughter were given a chance to ask any questions and they were answered to their satisfaction.
[2018-06-15 14:00] VITALS: BP 140/65
[2018-06-15] MEDS: ATORVASTATIN 20 MG TAB PO SCH (18:42)
[2018-06-15] MEDS: GABAPENTIN 300 MG CAP PO SCH (18:43)
[2018-06-15 22:00] VITALS: BP 136/70
[2018-06-15] MEDS: ALBUTEROL SULFATE 2.5 MG/0.5 ML INH NEB SOLN INH PRN (22:01)
[2018-06-16] MEDS: ISOSORBIDE DIN. (ISORDIL) 30 MG TAB PO SCH ×3 (05:42→21:55)
[2018-06-16 06:00] VITALS: BP 138/74
[2018-06-16 06:30] LABS: HEMATOCRIT 25.9 % (42.0-52.0); HEMOGLOBIN 8.5 g/dl (13.5-17.5); MEAN CORPUSCULAR HGB CONC 32.8 g/dl (32.0-36.5); MEAN CORPUSCULAR VOLUME 82.2 fl (80.0-96.0); PLATELET COUNT, AUTOMATED 223 10^3/uL (150-450); RED BLOOD COUNT 3.15 10^6/uL (4.30-6.10); WHITE BLOOD COUNT 8.3 10^3/uL (4.0-10.0)
[2018-06-16 06:57] LABS: CALCIUM LEVEL 7.7 MG/DL (8.8-10.2); CREATININE FOR GFR 3.22 MG/DL (0.70-1.30); GLOMERULAR FILTRATION RATE 20.7 (>49)
[2018-06-16] MEDS: SYMBICORT 160/4.5MCG INHALER 6GM INH SCH ×2 (07:56→19:15)
[2018-06-16] MEDS: amLODIPine 10 MG TAB PO SCH (08:15)
[2018-06-16] MEDS: predniSONE 20 MG TAB PO SCH (08:15)
[2018-06-16] MEDS: FLUTICASONE PROP 0.05% NASAL SPRAY 16 GM (FLONASE) SCH ×2 (08:16→21:55)
[2018-06-16] MEDS: HEPARIN SOD (PORCINE) 5000 UNITS/ML VIAL SC SCH ×2 (08:16→21:55)
[2018-06-16] MEDS: HumaLOG INSULIN (NovoLOG) PER UNIT SC SCH ×4 (08:16→21:56)
[2018-06-16] MEDS: LEVEMIR (INSULIN DETEMIR) 1 UNITS/0.01ML SC SCH ×2 (08:16→21:56)
[2018-06-16] MEDS ORDERED: predniSONE 10 MG TAB PO SCH (09:00)
--- NOTE | 2018-06-16 12:37 | IPNPDOC ---
Text Note Date of Service The patient was seen on 06/16/18. NOTE Subjective: Patient is a 67-year-old male with a PMHX for IDDM2, HTN and Asthma who presented to the [facility] as a transfer from [facility] after he's found to have an elevation of his creatinine. Patient was admitted to hospitalist service for further evaluation and treatment and nephrology was called on consultation. Patient was seen and examined at the bedside. , Currently patient has expressed no new events overnight. He denies chest pain, shortness of breath or palpitations. Denies nausea, vomiting, abdominal pain, constipation or diarrhea. Objective: Vitals (See below) General: Lying in bed, no acute distress, comfortable, AAOx3 HEENT: NC, AT CVS: RRR, +S1S2 Lungs: Fair air entry b/l, auscultation is without any wheezing, rales or rhonchi Abdomen: Soft, ND, NT Extremities: 1+ pitting edema bilaterally, - Calf tenderness Assessment and plan: Non-oliguric renal failure - likely 2/2 pre-renal etiology, possibly 2/2 intra- renal etiology - Clinically is feeling better - Creatinine has shown improvement after dialysis - s/p PermaCath placement with Dr. Landry on 06/13 - Nephrology on consultation; appreciate their input - Patient may require regularly scheduled dialysis in the interim; will discuss with Nephrology - Awaiting PFS / Case management for scheduling of outpatient HD IDDM2 - c/w Levemir and ISS - Dose of long acting insulin has been adjusted given corticosteroid use Asthma - No evidence of exacerbation - c/w Inhaled therapy as ordered s/p Hyperkalemia Chronic Diastolic Congestive Heart Failure - Some LE swelling; however reported to be chronic - c/w Dialysis Chronic anemia - possibly 2/2 CKD - c/w Darbepoetin Right knee pain - likely 2/2 gout - XR knee 06/12: Vascular calcification. Patellar tendon calcification consistent with chronic tendonitis. No acute bony abnormality. - c/w Prednisone; has been tapered - Dose of Levemir has been adjusted given corticosteroid use DVT prophylaxis - c/w Heparin Disposition: - c/w PT - Outpatient HD setup VS,Fishbone, I+O VS, Fishbone, I+O Laboratory Tests 06/16/18 05:25 Red Blood Count 3.15 L, Mean Corpuscular Volume 82.2, Mean Corpuscular Hemoglobin 27.0, Mean Corpuscular Hemoglobin Concent 32.8, Red Cell Distribution Width 14.6 H, Calcium Level 7.7 L Vital Signs Date Time Temp Pulse Resp B/P (MAP) Pulse Ox O2 Delivery O2 Flow Rate FiO2 06/16/18 08:15 71 151/63 06/16/18 06:00 98.4 18 94 I&O- Last 24 Hours up to 6 AM 06/16/18 06:00 Intake Total 3610 ml Output Total 2700 ml Balance 910 ml DURGA RICHARDS MD June 16, 2018 12:37
--- NOTE | 2018-06-16 13:44 | IPN ---
DATE: 06/16/2018 Mr. Scott is seen this morning on his bedside. He is feeling much better today and currently sitting at the edge of bed. He was dialyzed yesterday second time, which he tolerated very well. He feels that he is much better in walking and balance has improved. He denies any nausea, vomiting, dyspnea or chest pain. Two liters fluid was removed yesterday and his leg edema has improved though not resolved. PHYSICAL EXAMINATION: Temperature 98.4 degrees Fahrenheit, heart rate 72 per minute and respiratory rate 18 per minute. Blood pressure 151/63 mmHg and oxygen saturation 94% on room air. His head is atraumatic. Neck is supple and without JVD or thyroid enlargement. He has no oral thrush or ulcers. Heart sounds are regular and lungs clear to auscultation. Abdomen is soft and nontender and bowel sounds are present. Extremities have no cyanosis or clubbing. Neurologically, he is awake, alert and oriented times three. Today's labs show sodium 136, potassium 4.0, CO2 24, BUN 42 and creatinine 3.22. Glucose is 265 and calcium 7.7. WBC count 8.3, hemoglobin 8.5 and hematocrit 25.9. Platelets 223. PROBLEMS: 1. Renal failure. Patient has advanced renal failure and required hemodialysis. He was dialyzed yesterday and will schedule next dialysis again next week. I have discussed with him and his family about possibility of getting a diagnostic kidney biopsy as the etiology of his renal failure remains uncertain. He also wants to know the prognosis of his kidney function whether he has any chances of reversibility or not. I think kidney biopsy will be a suitable step in order to answer all these questions. All of his questions were answered and he did give verbal consent for biopsy. We will try to schedule his biopsy within the next day or two. 2. Hypertension. Blood pressure is very well controlled at this point and no changes are being made. 3. Anemia. Most likely this is related to advanced renal failure and we have already started Aranesp therapy. Will continue to monitor closely. 4. Hypervolemia. Volume status is improving with fluid removal with dialysis. Two liters were removed yesterday and we will try further 2 liters fluid removal with next dialysis.
[2018-06-16 14:00] VITALS: BP 150/69
[2018-06-16] MEDS: ATORVASTATIN 20 MG TAB PO SCH (17:14)
[2018-06-16] MEDS: GABAPENTIN 300 MG CAP PO SCH (17:14)
[2018-06-16 22:00] VITALS: BP 142/66
[2018-06-17] MEDS: ISOSORBIDE DIN. (ISORDIL) 30 MG TAB PO SCH ×3 (05:14→21:24)
[2018-06-17 06:00] VITALS: BP 136/64
[2018-06-17 06:25] LABS: HEMATOCRIT 25.7 % (42.0-52.0); HEMOGLOBIN 8.2 g/dl (13.5-17.5); MEAN CORPUSCULAR HEMOGLOBIN 26.6 pg (27.0-33.0); MEAN CORPUSCULAR HGB CONC 31.9 g/dl (32.0-36.5); MEAN CORPUSCULAR VOLUME 83.4 fl (80.0-96.0); PLATELET COUNT, AUTOMATED 232 10^3/uL (150-450); RED BLOOD COUNT 3.08 10^6/uL (4.30-6.10); WHITE BLOOD COUNT 9.7 10^3/uL (4.0-10.0)
[2018-06-17 06:42] LABS: CALCIUM LEVEL 7.2 MG/DL (8.8-10.2); CREATININE FOR GFR 3.93 MG/DL (0.70-1.30); GLOMERULAR FILTRATION RATE 16.5 (>49)
[2018-06-17] MEDS: SYMBICORT 160/4.5MCG INHALER 6GM INH SCH ×2 (07:46→20:01)
[2018-06-17] MEDS: HumaLOG INSULIN (NovoLOG) PER UNIT SC SCH ×4 (08:06→21:00)
[2018-06-17] MEDS: HEPARIN SOD (PORCINE) 5000 UNITS/ML VIAL SC SCH ×2 (08:06→21:23)
[2018-06-17] MEDS: LEVEMIR (INSULIN DETEMIR) 1 UNITS/0.01ML SC SCH ×2 (08:06→21:24)
[2018-06-17] MEDS: predniSONE 20 MG TAB PO SCH (08:07)
[2018-06-17] MEDS: amLODIPine 10 MG TAB PO SCH (08:07)
[2018-06-17] MEDS: FLUTICASONE PROP 0.05% NASAL SPRAY 16 GM (FLONASE) SCH ×2 (09:00→21:24)
[2018-06-17] MEDS ORDERED: HEPARIN 1,000 UNITS/ML 10ML VIAL (FOR RADIOLOGY& DIALYSIS ONLY) IV ONE (11:00)
[2018-06-17] MEDS ORDERED: HEPARIN 1,000 UNITS/ML 10ML VIAL (FOR RADIOLOGY& DIALYSIS ONLY) XX ONE (11:00)
--- NOTE | 2018-06-17 11:40 | IPNPDOC ---
Date Seen The patient was seen on 06/17/18. Progress Note SUBJECTIVE: Patient was seen and examined this morning. He currently has no complaints. He did not receive dialysis yesterday. He is to receive a kidney biopsy tomorrow. He denies any chest pain, shortness of breath, nausea or vomiting. He does have pain in his knee from his gout however, states that it has improved since being on the prednisone OBJECTIVE PHYSICAL EXAMINATION: VITAL SIGNS: Please see below. GENERAL: Awake, alert, and oriented. Appears in no acute distress. Sitting up in bed. Appears comfortable HEENT: Atrumatic, normocephalic. Eyes are non-icteric. Trachea is midline. M ucous membranes are pink and moist. CARDIOVASCULAR: Normal S1, S2. Regular rate and rhythm. No clicks, rubs, or murmurs. RESPIRATORY: Clear vesicular lung sounds bilaterally. No wheezes, rhonci, or rales ABDOMINAL: Soft, nondistended. Nontender to palpation in all 4 quadrants. No rebound tenderness or guarding. Positive bowel sounds EXTREMITIES: 2-3mm pitting edema. Pulses full and equal in bilateral upper and lower extremities. NEUROLOGICAL: No focal neurological deficits PSYCHOLOGICAL: Mood and affect appear appropriate LABORATORY DATA, IMAGING STUDIES, MICROBIOLOGY: Please see below. DVT prophylaxis ordered?: YES ASSESSMENT AND PLAN: ASSESSMENT AND PLAN: Patient is a 67 year old male with a past medical history of IDDM, hypertension, and asthma who presented as a transfer from [facility] for a dx of acute kidney failure. Additionally, on CT the patient was found to pneumostosis. Patient was evaluated by general surgery who did not feel it necessary to PROBLEMS: 1. Non-oliguric renal failure -Patient presented in acute renal failure. He has received IV fluid hyd ration. His Cr. has improved mildly. Patient is currently being followed by Nephrology. Their assistance is greatly appreciated -Patient continues to make urine. Will continue to monitor urine output and Cr. -Patients Cr has not improved significantly. He has had PermaCath placed -Patient continues to have dialysis however, an etiology of his renal failure has not been identified. He will be getting a Kidney Biopsy tomorrow 06/18/18 to assess for a possible cause to his renal dysfunction -After biopsy, patient will need outpatient dialysis planned before discharge 2. IDDM with hypoglycemia -Patient has had several episodes of symptomatic hypoglycemia and his insulin was stopped. He was then started on prednisone for his gout and was found to be hyperglycemic. -We have started his basal coverage. Will continue to monitor BGL -Patient has had prednisone reduced. 3. Hyperkalemia -Resolved. -Patient was taking JUSTICE inhibitor with potassium supplements in setting of renal failure. These medications have been held and his hyperkalemia has resolved -Will continue to monitor 4. Chronic Diastolic Congestive Heart Failure -Patient has had 1 liter of fluid removed with dialysis yesterday 5. Anemia -Patient was started on Aranesp by Nephrology with dialysis. 6. Gout -Patient has been on Prednisone. He has been hyperglycemic likely due to his steroid. He was previously not on insulin as he was hypoglycemic when first hospitalized -Prednisone has been reduced to 20mg daily. 7. DVT prophylaxis -Heparin Q12H DISPOSITION: Plan for discharge after 48-72 hours pending outpatient dialysis A-FIB/CHADSVASC A-FIB History Current/History of A-Fib/PAF?: No VS, I&O, 24H, Fishbone Vital Signs/I&O Vital Signs Date Time Temp Pulse Resp B/P (MAP) Pulse Ox O2 Delivery O2 Flow Rate FiO2 06/17/18 08:07 62 136/64 06/17/18 06:00 97.5 18 96 l I&O- Last 24 Hours up to 6 AM 06/17/18 06:00 Intake Total 2570 ml Output Total 900 ml Balance 1670 ml Laboratory Data 24H LABS Laboratory Tests 2 06/16/18 16:25: Bedside Glucose (Misc Panel) 282H 06/16/18 19:57: Bedside Glucose (Misc Panel) 305H 06/17/18 05:26: Nucleated Red Blood Cells % (auto) 0.0, Anion Gap 9, Glomerular Filtration Rate 16.5L, Blood Urea Nitrogen 58H, Creatinine 3.93H, Sodium Level 134L, Potassium Level 4.0, Chloride Level 102, Carbon Dioxide Level 23, Calcium Level 7.2L CBC/BMP Laboratory Tests 06/17/18 05:26 Red Blood Count 3.08 L, Mean Corpuscular Volume 83.4, Mean Corpuscular Hemoglobin 26.6 L, Mean Corpuscular Hemoglobin Concent 31.9 L, Red Cell Distribution Width 14.6 H, Calcium Level 7.2 L GME ATTESTATION GME ATTESTATION My faculty preceptor for this patient encounter was physically present during the encounter and was fully available. All aspects of the patient interview, examination, medical decision making process, and medical care plan development were reviewed and approved by the faculty preceptor. The faculty preceptor is aware and concurs with the plan as stated in the body of this note and will attest to such by his/her cosignature. ATTENDING NOTE I saw and evaluated the patient. I agree with the findings and plan of care as documented in the resident's note CHUY HASSAN DO June 17, 2018 11:40 ELVA OROZCO MD June 20, 2018 13:09
--- NOTE | 2018-06-17 12:01 | IPNPDOC ---
Text Note Date of Service The patient was seen on 06/17/18. NOTE Nephrology Service: Subjective: Patient seen and examined at bedside sitting up in bed. Denies fevers, chills, chest pain, SOB. Last dialysis was on 06/15 with 2000 mL removed. Still has edema of lower extremities. Has no acute complaints today. Kidney function is not improving. No etiology as to why. Will have kidney biopsy tomorrow. Will be going for hemodialysis for 3 hours today. Objective: Vitals: T 97.5 P 62 RR 18 BP 136/64 Pulse Ox: 96% room air Weight: 95.2 kg today; 96 kg yesterday Intake: 2570 ml Output: 750 ml Balance: (+) 1820 ml UO: 0.33 mL/kg/hr GENERAL APPEARANCE: Pleasant and cooperative adult male sitting up in bed. Awake, alert, oriented x 3. HEENT: NCAT. Sclera nonicteric. NECK: Supple. No JVD appreciable. RESPIRATORY: Clear to Auscultation bilaterally. No wheezes/rales/rhonchi. CARDIOVASCULAR: Normal S1S2, RRR, no murmurs appreciated. ABDOMEN: Soft, nontender. EXTREMITIES: (+)1 pitting edema in bilateral lower extremities. No clubbing/cyanosis. INTEGUMENTARY: No rashes or lesions noted. NEUROLOGICAL: Appropriate mentation. No focal neurologic deficits appreciated on inspection. PSYCHIATRIC: Appropriate mood and affect. No signs of overt depression/anxiety. Laboratory data: CBC: WBC 9.7, Hgb 8.2, 232 Platelets BMP: Na 134, K 4, CO2 23, BUN 58, Cr 3.93, Glucose 271, Ca 7.2 Imaging: No new imaging today. Current Inpatient Medications: Drisdol 47975 units PO Sunday Prednisone 20 mg PO daily Aranesp 100 mcg HD IV Amlodipine 10 mg PO daily Isosorbide Dinitrate 30 mg q8h PO Gabapentin 300 mg PO daily No medication changes noted today. Assessment/Plan: 1. Nonoliguric Acute Renal Failure: Last had dialysis via on 06/15 via permacath. Unfortunately, kidney function has not recovered. GFR at 16.5 today. Etiology of ARF still unclear. Next dialysis session will be today. A kidney biopsy is scheduled for tomorrow, which will help to further determine reason for kidney failure and nonrecovering function. Written consent for kidney biopsy procedure was obtained from patient today. 2. Hypertension: Controlled and stable. Continue Amlodipine and Isosorbide Dinitrate at current doses. 3. Anemia: Likely secondary to kidney failure and development of a chronic kidney disease process. Continue Aranesp for now. Continue to monitor CBC. Hgb at 8.2 today and in stable range. 4. Hypervolemia: Lower extremities with pitting edema today. Fluid status managed with hemodialysis. Will attempt for 2 more liters of fluid removal during dialysis today. Continue to monitor clinically. No signs of symptomatic fluid overload. My preceptor for this patient encounter was Dr. Paula Pride, and was p hysically present in the building during the encounter and was fully available. As needed, all aspects of the patient interview, examination, medical decision making process, and medical care plan development were reviewed and approved by the preceptor. Preceptor is aware and concurs with the plan as stated in the body of this note and will attest to such by his/her cosignature. A-FIB/CHADSVASC A-FIB History Current/History of A-Fib/PAF?: No Current Oral Anticoagulant The: No VS,Fishbone, I+O VS, Fishbone, I+O Laboratory Tests 06/17/18 05:26 Red Blood Count 3.08 L, Mean Corpuscular Volume 83.4, Mean Corpuscular Hemoglobin 26.6 L, Mean Corpuscular Hemoglobin Concent 31.9 L, Red Cell Distribution Width 14.6 H, Calcium Level 7.2 L Vital Signs Date Time Temp Pulse Resp B/P (MAP) Pulse Ox O2 Delivery O2 Flow Rate FiO2 06/17/18 08:07 62 136/64 06/17/18 06:00 97.5 18 96 I&O- Last 24 Hours up to 6 AM 06/17/18 06:00 Intake Total 2570 ml Output Total 900 ml Balance 1670 ml ANI KNAPP DO June 17, 2018 11:35
[2018-06-17 14:00] VITALS: BP 136/65
[2018-06-17] MEDS: GABAPENTIN 300 MG CAP PO SCH (18:54)
[2018-06-17] MEDS: ATORVASTATIN 20 MG TAB PO SCH (18:54)
[2018-06-17 22:00] VITALS: BP 161/73
[2018-06-18] VITALS (11 sets, daily range): BP systolic 126–182; BP diastolic 60–87
[2018-06-18 06:18] LABS: HEMATOCRIT 26.5 % (42.0-52.0); HEMOGLOBIN 8.8 g/dl (13.5-17.5); MEAN CORPUSCULAR HEMOGLOBIN 27.1 pg (27.0-33.0); MEAN CORPUSCULAR HGB CONC 33.2 g/dl (32.0-36.5); MEAN CORPUSCULAR VOLUME 81.5 fl (80.0-96.0); PLATELET COUNT, AUTOMATED 254 10^3/uL (150-450); RED BLOOD COUNT 3.25 10^6/uL (4.30-6.10); WHITE BLOOD COUNT 11.7 10^3/uL (4.0-10.0)
[2018-06-18] MEDS: ISOSORBIDE DIN. (ISORDIL) 30 MG TAB PO SCH ×3 (06:33→21:20)
[2018-06-18 06:37] LABS: CALCIUM LEVEL 7.4 MG/DL (8.8-10.2); CREATININE FOR GFR 2.96 MG/DL (0.70-1.30); GLOMERULAR FILTRATION RATE 22.8 (>49); POTASSIUM SERUM 3.9 MEQ/L (3.5-5.1)
[2018-06-18] MEDS: HumaLOG INSULIN (NovoLOG) PER UNIT SC SCH ×4 (07:30→21:21)
[2018-06-18] MEDS: SYMBICORT 160/4.5MCG INHALER 6GM INH SCH ×2 (07:35→19:25)
[2018-06-18] MEDS: predniSONE 20 MG TAB PO SCH (08:22)
[2018-06-18] MEDS: LEVEMIR (INSULIN DETEMIR) 1 UNITS/0.01ML SC SCH ×2 (08:22→21:21)
[2018-06-18] MEDS: amLODIPine 10 MG TAB PO SCH (08:22)
[2018-06-18] MEDS: FLUTICASONE PROP 0.05% NASAL SPRAY 16 GM (FLONASE) SCH ×2 (08:23→21:22)
[2018-06-18] MEDS: HEPARIN SOD (PORCINE) 5000 UNITS/ML VIAL SC SCH ×2 (08:23→21:21)
[2018-06-18] MEDS ORDERED: LIDOCAINE 1% MDV 20ML VIAL As Ordered ONE (10:19)
--- NOTE | 2018-06-18 10:38 | IPNPDOC ---
Date Seen The patient was seen on 06/18/18. Progress Note SUBJECTIVE: Patient was seen and examined this morning. He currently has no complaints. He is planned to have his kidney biopsy today. He received dialysis yesterday. He states that his knee pain has improved. He denies shortness of breath or chest pain OBJECTIVE PHYSICAL EXAMINATION: VITAL SIGNS: Please see below. GENERAL: Awake, alert, and oriented. Appears in no acute distress. Sitting c omfortably at edge of bed HEENT: Atrumatic, normocephalic. Eyes are nonicteric. Trachea is midline. Mucous membranes are pink and moist CARDIOVASCULAR: Normal S1, S2. Regular rate and rhythm. No clicks, rubs, or murmurs. RESPIRATORY: Clear vesicular breath sounds bilaterally. No wheezes rhonci or rales ABDOMINAL: Soft, nondistended. Nontender to palpation of all 4 quadrants. No rebound tenderness or guarding. Positive bowel sounds throughout EXTREMITIES: 2-3mm pitting edema bilaterally. Full and equal pulses in bilateral upper and lower extremities NEUROLOGICAL: No focal neurological deficits PSYCHOLOGICAL: Mood and affect appear appropriate LABORATORY DATA, IMAGING STUDIES, MICROBIOLOGY: Please see below. DVT prophylaxis ordered?: YES ASSESSMENT AND PLAN:Patient is a 67 year old male with a past medical history of IDDM, hypertension, and asthma who presented as a transfer from [facility] for a dx of acute kidney failure. Additionally, on CT the patient was found to pneumostosis. Patient was evaluated by general surgery who did not feel it necessary to PROBLEMS: 1. Non-oliguric renal failure -Patient presented in acute renal failure. He has received IV fluid hydr ation. His Cr. has improved mildly. Patient is currently being followed by Nephrology. Their assistance is greatly appreciated -Patient continues to make urine. Will continue to monitor urine output and Cr. -Patients Cr has not improved significantly. He has had PermaCath placed -Patient continues to have dialysis however, an etiology of his renal failure has not been identified. He will be getting a Kidney Biopsy tomorrow 06/18/18 to assess for a possible cause to his renal dysfunction -Kidney Biopsy today. 2. IDDM with hypoglycemia -Patient has had several episodes of symptomatic hypoglycemia and his insulin was stopped. He was then started on prednisone for his gout and was found to be hyperglycemic. -We have started his basal coverage. Will continue to monitor BGL -Prednisone has been discontinued 3. Hyperkalemia -Resolved. -Patient was taking JUSTICE inhibitor with potassium supplements in setting of renal failure. These medications have been held and his hyperkalemia has resolved -Will continue to monitor 4. Chronic Diastolic Congestive Heart Failure -Patient has had 1 liter of fluid removed with dialysis yesterday 5. Anemia -Patient was started on Aranesp by Nephrology with dialysis. 6. Gout -Patient has been on Prednisone. He has been hyperglycemic likely due to his steroid. He was previously not on insulin as he was hypoglycemic when first ho spitalized -Patients pain has resolved. Will discontinue prednisone. 7. DVT prophylaxis -Heparin Q12H DISPOSITION: Plan for discharge after 48-72 hours pending outpatient dialysis A-FIB/CHADSVASC A-FIB History Current/History of A-Fib/PAF?: No VS, I&O, 24H, Fishbone Vital Signs/I&O Vital Signs Date Time Temp Pulse Resp B/P (MAP) Pulse Ox O2 Delivery O2 Flow Rate FiO2 06/18/18 08:22 66 159/72 06/18/18 06:00 98.5 18 96 I&O- Last 24 Hours up to 6 AM 06/18/18 05:59 Intake Total 2400 ml Output Total 2875 ml Balance -475 ml Laboratory Data 24H LABS Laboratory Tests 2 06/17/18 11:26: Bedside Glucose (Misc Panel) 243H 06/17/18 18:51: Bedside Glucose (Misc Panel) 142H 06/17/18 21:11: Bedside Glucose (Misc Panel) 180H 06/18/18 06:02: Nucleated Red Blood Cells % (auto) 0.0, Anion Gap 10, Glomerular Filtration Rate 22.8L, Blood Urea Nitrogen 42H, Creatinine 2.96H, Sodium Level 140, Potassium Level 3.9, Chloride Level 105, Carbon Dioxide Level 25, Calcium Level 7.4L CBC/BMP Laboratory Tests 06/18/18 06:02 Red Blood Count 3.25 L, Mean Corpuscular Volume 81.5, Mean Corpuscular Hemoglobin 27.1, Mean Corpuscular Hemoglobin Concent 33.2, Red Cell Distribution Width 14.6 H, Calcium Level 7.4 L GME ATTESTATION GME ATTESTATION My faculty preceptor for this patient encounter was physically present during the encounter and was fully available. All aspects of the patient interview, examination, medical decision making process, and medical care plan development were reviewed and approved by the faculty preceptor. The faculty preceptor is aware and concurs with the plan as stated in the body of this note and will attest to such by his/her cosignature. ATTENDING NOTE I saw and evaluated the patient. I agree with the findings and plan of care as documented in the resident's note CHUY HASSAN DO June 18, 2018 10:38 ELVA OROZCO MD June 20, 2018 13:12
[2018-06-18] MEDS: ACETAMINOPHEN TAB 650MG DOSE (2X325MG) PO PRN (13:16)
--- NOTE | 2018-06-18 17:31 | RO ---
DATE OF PROCEDURE: 06/18/2018 INDICATIONS FOR PROCEDURE: Is acute renal failure of uncertain etiology. PREPROCEDURE DIAGNOSIS: Acute renal failure. POSTPROCEDURE DIAGNOSIS: Acute renal failure. PROCEDURE: Left kidney biopsy. SURGEON: Dr. Paula Pride. ANESTHESIA: 1% lidocaine. SINGLE NEEDLE TUFTING MACHINE OPERATOR: None. DESCRIPTION: Informed consent has already been obtained from the patient. He was brought down to ultrasound room and put in the prone position on the exam table with a rolled towel under his abdomen. Left kidney was identified with ultrasound. Skin was cleaned and prepped in usual sterile fashion and 1% lidocaine was used for local anesthesia from skin all the way down to renal capsule. Under direct ultrasound guidance a trocar needle was placed from skin down to renal capsule. Stylet was then removed and needle biopsy was advanced under direct ultrasound guidance and three attempts were made and three pieces of biopsy were obtained. The patient tolerated the procedure well and no complications were noted. Postprocedure check showed only a small perinephric hematoma. Tissue was sent to pathology and patient was transferred to the recovery room.
[2018-06-18] MEDS: GABAPENTIN 300 MG CAP PO SCH (17:53)
[2018-06-18] MEDS: ATORVASTATIN 20 MG TAB PO SCH (17:53)
[2018-06-19 06:00] VITALS: BP 160/78
[2018-06-19] MEDS: ISOSORBIDE DIN. (ISORDIL) 30 MG TAB PO SCH ×3 (06:00→21:59)
[2018-06-19 06:34] LABS: HEMATOCRIT 26.4 % (42.0-52.0); HEMOGLOBIN 8.5 g/dl (13.5-17.5); MEAN CORPUSCULAR HEMOGLOBIN 26.8 pg (27.0-33.0); MEAN CORPUSCULAR HGB CONC 32.2 g/dl (32.0-36.5); MEAN CORPUSCULAR VOLUME 83.3 fl (80.0-96.0); PLATELET COUNT, AUTOMATED 272 10^3/uL (150-450); RED BLOOD COUNT 3.17 10^6/uL (4.30-6.10); WHITE BLOOD COUNT 12.7 10^3/uL (4.0-10.0)
[2018-06-19 07:02] LABS: CALCIUM LEVEL 7.1 MG/DL (8.8-10.2); CREATININE FOR GFR 3.64 MG/DL (0.70-1.30); POTASSIUM SERUM 3.8 MEQ/L (3.5-5.1)
[2018-06-19] MEDS: SYMBICORT 160/4.5MCG INHALER 6GM INH SCH ×2 (07:37→19:25)
--- NOTE | 2018-06-19 07:51 | REP ---
Ultrasound guidance: History: Renal failure. Findings: Sonographic guidance is provided Dr. Pride who performed ultrasound-guided needle biopsy procedure of the lower pole of the left kidney. Electronically Signed by Carmelo Salguero MD 06/19/2018 01:38 P
[2018-06-19] MEDS: amLODIPine 10 MG TAB PO SCH (07:54)
[2018-06-19] MEDS: predniSONE 20 MG TAB PO SCH (07:54)
[2018-06-19] MEDS: LEVEMIR (INSULIN DETEMIR) 1 UNITS/0.01ML SC SCH ×2 (07:55→21:58)
[2018-06-19] MEDS: HumaLOG INSULIN (NovoLOG) PER UNIT SC SCH ×4 (07:55→21:00)
[2018-06-19] MEDS: FLUTICASONE PROP 0.05% NASAL SPRAY 16 GM (FLONASE) SCH ×2 (07:56→21:58)
[2018-06-19] MEDS: HEPARIN SOD (PORCINE) 5000 UNITS/ML VIAL SC SCH ×2 (07:56→21:58)
[2018-06-19] MEDS ORDERED: HEPARIN 1,000 UNITS/ML 10ML VIAL (FOR RADIOLOGY& DIALYSIS ONLY) IV ONE (11:00)
[2018-06-19] MEDS ORDERED: HEPARIN 1,000 UNITS/ML 10ML VIAL (FOR RADIOLOGY& DIALYSIS ONLY) XX ONE (11:00)
--- NOTE | 2018-06-19 11:24 | IPNPDOC ---
Date Seen The patient was seen on 06/19/18. Progress Note SUBJECTIVE: Patient was seen and examined this morning. He has no new complaints this morning. The patient received a kidney biopsy yesterday which went well. There were no adverse events reported overnight. OBJECTIVE PHYSICAL EXAMINATION: VITAL SIGNS: Please see below. GENERAL: Awake, alert, and oriented. Appears in no acute distress. lying comfortably in bed. HEENT: Atrumatic, normocephalic. Eyes are nonicteric. Trachea is midline. CARDIOVASCULAR: Normal S1, S2. Regular rate and rhythm. No clicks, rubs, or murmurs. RESPIRATORY: Clear vesicular lung sounds bilaterally. Good respiratory effort. No wheezes, rhonci, or rales ABDOMINAL: Soft, nondistended. Nontender to palpation throughout all 4 quadrants. Positive bowel sounds throughout EXTREMITIES: 3mm pitting edema bilaterally. Full and equal pulses in bilateral upper and lower extremities NEUROLOGICAL: No focal neurological deficits PSYCHOLOGICAL: Mood and affect appear appropriate LABORATORY DATA, IMAGING STUDIES, MICROBIOLOGY: Please see below. DVT prophylaxis ordered?: YES ASSESSMENT AND PLAN: Patient is a 67 year old male with a past medical history of IDDM, hypertension, and asthma who presented as a transfer from [facility] for a dx of acute kidney failure. Additionally, on CT the patient was found to pneumostosis. Patient was evaluated by general surgery who did not feel it necessary to PROBLEMS: 1. Non-oliguric renal failure -Patient presented in acute renal failure. He has received IV fluid hydration. His Cr. has improved mildly. Patient is currently being followed by Nephrology. Their assistance is greatly appreciated -Patient continues to make urine. Will continue to monitor urine output and Cr. -Patients Cr has not improved significantly. He has had PermaCath placed -Patient received kidney biopsy yesterday -Patient will receive dialysis today. Patient will need outpatient dialysis before discharge 2. IDDM with hypoglycemia -Patient has had several episodes of symptomatic hypoglycemia and his insulin was stopped. He was then started on prednisone for his gout and was found to be hyperglycemic. -We have started his basal coverage. Will continue to monitor BGL 3. Hyperkalemia -Resolved. -Patient was taking JUSTICE inhibitor with potassium supplements in setting of renal failure. These medications have been held and his hyperkalemia has resolved -Will continue to monitor 4. Chronic Diastolic Congestive Heart Failure -Patient has had 1 liter of fluid removed with dialysis yesterday 5. Anemia -Patient was started on Aranesp by Nephrology with dialysis. 6. Gout -Patient has been on Prednisone. He has been hyperglycemic likely due to his steroid. He was previously not on insulin as he was hypoglycemic when first hospitalized -Patients pain has resolved. Will discontinue prednisone. 7. DVT prophylaxis -Heparin Q12H DISPOSITION: Plan for discharge after 48-72 hours pending outpatient dialysis A-FIB/CHADSVASC A-FIB History Current/History of A-Fib/PAF?: No VS, I&O, 24H, Fishbone Vital Signs/I&O Vital Signs Date Time Temp Pulse Resp B/P (MAP) Pulse Ox O2 Delivery O2 Flow Rate FiO2 06/19/18 07:54 61 160/78 06/19/18 06:00 98.0 18 97 I&O- Last 24 Hours up to 6 AM 06/19/18 06:00 Intake Total 1906 ml Output Total 1170 ml Balance 736 ml Laboratory Data 24H LABS Laboratory Tests 2 06/18/18 11:45: Bedside Glucose (Misc Panel) 105 06/18/18 16:30: Bedside Glucose (Misc Panel) 199H 06/18/18 20:14: Bedside Glucose (Misc Panel) 272H 06/19/18 06:12: Nucleated Red Blood Cells % (auto) 0.0, Anion Gap 9, Glomerular Filtration Rate 18.0L, Blood Urea Nitrogen 62H, Creatinine 3.64H, Sodium Level 138, Potassium Level 3.8, Chloride Level 105, Carbon Dioxide Level 24, Calcium Level 7.1L CBC/BMP Laboratory Tests 06/19/18 06:12 Red Blood Count 3.17 L, Mean Corpuscular Volume 83.3, Mean Corpuscular Hemoglobin 26.8 L, Mean Corpuscular Hemoglobin Concent 32.2, Red Cell Distribution Width 14.9 H, Calcium Level 7.1 L GME ATTESTATION GME ATTESTATION My faculty preceptor for this patient encounter was physically present during the encounter and was fully available. All aspects of the patient interview, examination, medical decision making process, and medical care plan development were reviewed and approved by the faculty preceptor. The faculty preceptor is aware and concurs with the plan as stated in the body of this note and will attest to such by his/her cosignature. ATTENDING NOTE I saw and evaluated the patient. I agree with the findings and plan of care as documented in the resident's note CHUY HASSAN DO June 19, 2018 11:24 ELVA OROZCO MD June 20, 2018 13:16
--- NOTE | 2018-06-19 11:31 | IPNPDOC ---
Text Note Date of Service The patient was seen on 06/18/18. NOTE Nephrology Service: Subjective: Patient seen and examined at bedside sitting up in bed. Denies fevers, chills, chest pain, SOB. Last dialysis was on 06/17 with 2000 mL removed. Still has edema of lower extremities. Would like to go home as soon as he can. Kidney function is not improving. No etiology as to why. Will have kidney biopsy tomorrow. Will be going for hemodialysis for 3 hours today. Objective: Vitals: T 97.5 P 66 RR 18 BP 154/72 Pulse Ox: 96% room air Weight: 95.2 kg yesterday Intake: 2400 ml Output: 2875 ml Balance: (-) 475 ml UO: 0.38 mL/kg/hr GENERAL APPEARANCE: Pleasant and cooperative adult male sitting up in bed. Awake, alert, oriented x 3. HEENT: NCAT. Sclera nonicteric. NECK: Supple. No JVD appreciable. RESPIRATORY: Clear to Auscultation bilaterally. No wheezes/rales/rhonchi. CARDIOVASCULAR: Normal S1S2, RRR, no murmurs appreciated. ABDOMEN: Soft, nontender, nondistended. EXTREMITIES: (+)1 pitting edema in bilateral lower extremities. No clubbing/cyanosis. INTEGUMENTARY: No rashes or lesions noted. NEUROLOGICAL: No focal neurologic deficits appreciated on inspection. PSYCHIATRIC: Appropriate mood and affect. Laboratory data: CBC: WBC 11.7, Hgb 8.8, Platelets 254 BMP: Na 140, K 3.9, Cl 105, CO2 25, BUN 42, Cr 2.96, Glucose 175, Ca 7.4 Imaging: No new imaging today. Current Inpatient Medications: Drisdol 36436 units PO Sunday Prednisone 20 mg PO daily Aranesp 100 mcg HD IV Amlodipine 10 mg PO daily Isosorbide Dinitrate 30 mg q8h PO Gabapentin 300 mg PO daily No medication changes noted today. Assessment/Plan: 1. Nonoliguric Acute Renal Failure: Last had dialysis via on 06/17 via permacath. Unfortunately, kidney function has not recovered. GFR at 22.8 today. Etiology of ARF still unclear. Next dialysis will be tomorrow. A kidney biopsy is scheduled for this morning, which will help to further determine reason for kidney failure and nonrecovering function. Written consent for kidney biopsy procedure was obtained from patient today. 2. Hypertension: Controlled and stable. Continue Amlodipine and Isosorbide Dinitrate at current doses. 3. Anemia: Likely secondary to kidney failure and development of a chronic kidney disease process. Continue Aranesp for now. Continue to monitor CBC. Hgb at 8.8 today. and in stable range. 4. Hypervolemia: Lower extremities with pitting edema today. Fluid status managed with hemodialysis. Continue to monitor clinically. No signs of symptomatic fluid overload. My preceptor for this patient encounter was Dr. Paula Pride, and was physically present in the building during the encounter and was fully available. As needed, all aspects of the patient interview, examination, medical decision making process, and medical care plan development were reviewed and approved by the preceptor. Preceptor is aware and concurs with the plan as stated in the body of this note and will attest to such by his/her cosignature. A-FIB/CHADSVASC A-FIB History Current/History of A-Fib/PAF?: No Current Oral Anticoagulant The: No VS,Fishbone, I+O VS, Fishbone, I+O Laboratory Tests 06/18/18 06:02 Red Blood Count 3.25 L, Mean Corpuscular Volume 81.5, Mean Corpuscular Hemoglobin 27.1, Mean Corpuscular Hemoglobin Concent 33.2, Red Cell Distribution Width 14.6 H, Calcium Level 7.4 L Vital Signs Date Time Temp Pulse Resp B/P (MAP) Pulse Ox O2 Delivery O2 Flow Rate FiO2 06/18/18 21:20 170/73 06/18/18 15:45 97.4 65 17 96 I&O- Last 24 Hours up to 6 AM 06/18/18 06:00 Intake Total 2280 ml Output Total 2675 ml Balance -395 ml ANI KNAPP DO June 18, 2018 22:33
--- NOTE | 2018-06-19 12:05 | IPNPDOC ---
Text Note Date of Service The patient was seen on 06/19/18. NOTE Nephrology Service: Subjective: Patient seen and examined at bedside sitting up in bed. Denies fevers, chills, chest pain, SOB. Last dialysis was yesterday with 2000 mL removed. Still has edema of lower extremities. States social work lecturer Jerel Kate working on getting him a spot in outpatient dialysis for Sunday, , Sunday schedule. Kidney function is not improving still. Kidney biopsy done yesterday. Will be going for dialysis today. Patient denies any overnight events. Objective: Vitals: T 98 P 61 RR 18 BP 160/78 Pulse Ox: 97% room air Weight: 95.3 kg yesterday Intake: 1566 ml Output: 825 ml Balance: (+) 741 ml UO: 0.36 mL/kg/hr GENERAL APPEARANCE: Pleasant and cooperative adult male sitting up in bed. Awake, alert, oriented x 3. HEENT: NCAT. NECK: Supple. No JVD appreciable. RESPIRATORY: Clear to Auscultation bilaterally. No wheezes/rales/rhonchi. CARDIOVASCULAR: Normal S1S2, RRR, no murmurs appreciated. ABDOMEN: Soft, nontender, nondistended. BACK: L kidney biopsy site covered with dressing. No erythema or ecchymoses or tenderness at or around site. No bleeding or purulent drainage from site. EXTREMITIES: (+)2 pitting edema in bilateral lower extremities. No clubbing/cyanosis. INTEGUMENTARY: No rashes or lesions noted. NEUROLOGICAL: No focal neurologic deficits appreciated on inspection. PSYCHIATRIC: Appropriate mood and affect. Laboratory data: CBC: WBC 12.7, Hgb 8.5, Platelets 272 BMP: Na 138, K 3.8, Cl 105, CO2 24, BUN 62, Cr 3.64, GFR: 18, Glucose 216, Ca 7.1 Imaging: No new imaging today. Current Inpatient Medications: Drisdol 96651 units PO Sunday Prednisone 20 mg PO daily Aranesp 100 mcg HD IV Amlodipine 10 mg PO daily Isosorbide Dinitrate 30 mg q8h PO Gabapentin 300 mg PO daily No medication changes noted today. Assessment/Plan: 1. Nonoliguric Acute Renal Failure: Last had dialysis via on 06/17 via permacath with 200 mL removed. Unfortunately, kidney function has not recovered. GFR at 18 today. Etiology of ARF still unclear. Next dialysis will be today and tomorrow (if arranged as outpatient). Kidney biopsy results pending. 2. Hypertension: BP fluctuates at being high at certain times in the day, but is mainly controlled and stable. Continue Amlodipine and Isosorbide Dinitrate at current doses. Will ask Dr. Pride prior to patient being discharged about the need for discharging patient on his home medications: bumetanide and lisinopril--since they can contribute to nephrotoxicity. Will let primary team know what is decided. 3. Anemia: Likely secondary to kidney failure and development of a chronic kidney disease process. Continue Aranesp for now. Continue to monitor CBC. Hgb at 8.5 today. and in stable range. 4. Hypervolemia: Lower extremities with pitting edema today. Fluid status managed with hemodialysis. Continue to monitor clinically. No signs of symptom atic fluid overload. My preceptor for this patient encounter was Dr. Paula Pride, and was physi blaire present in the building during the encounter and was fully available. As needed, all aspects of the patient interview, examination, medical decision making process, and medical care plan development were reviewed and approved by the preceptor. Preceptor is aware and concurs with the plan as stated in the body of this note and will attest to such by his/her cosignature. A-FIB/CHADSVASC A-FIB History Current/History of A-Fib/PAF?: No Current Oral Anticoagulant The: No VS,Fishbone, I+O VS, Fishbone, I+O Laboratory Tests 06/19/18 06:12 Red Blood Count 3.17 L, Mean Corpuscular Volume 83.3, Mean Corpuscular Hemoglobin 26.8 L, Mean Corpuscular Hemoglobin Concent 32.2, Red Cell D istribution Width 14.9 H, Calcium Level 7.1 L Vital Signs Date Time Temp Pulse Resp B/P (MAP) Pulse Ox O2 Delivery O2 Flow Rate FiO2 06/19/18 07:54 61 160/78 06/19/18 06:00 98.0 18 97 I&O- Last 24 Hours up to 6 AM 06/19/18 06:00 Intake Total 1906 ml Output Total 1170 ml Balance 736 ml ANI KNAPP DO June 19, 2018 12:05
[2018-06-19] MEDS: ATORVASTATIN 20 MG TAB PO SCH (17:54)
[2018-06-19] MEDS: GABAPENTIN 300 MG CAP PO SCH (17:54)
[2018-06-19 22:00] VITALS: BP 157/70
[2018-06-20 06:00] VITALS: BP 163/72
[2018-06-20] MEDS: ISOSORBIDE DIN. (ISORDIL) 30 MG TAB PO SCH (06:14)
[2018-06-20] MEDS: SYMBICORT 160/4.5MCG INHALER 6GM INH SCH (07:30)
[2018-06-20 08:26] LABS: HEMOGLOBIN 9.3 g/dl (13.5-17.5); MEAN CORPUSCULAR HEMOGLOBIN 26.9 pg (27.0-33.0); MEAN CORPUSCULAR HGB CONC 32.1 g/dl (32.0-36.5); MEAN CORPUSCULAR VOLUME 83.8 fl (80.0-96.0); PLATELET COUNT, AUTOMATED 271 10^3/uL (150-450); RED BLOOD COUNT 3.46 10^6/uL (4.30-6.10); WHITE BLOOD COUNT 13.6 10^3/uL (4.0-10.0)
[2018-06-20 08:53] LABS: ALBUMIN 2.7 GM/DL (3.2-5.2); CALCIUM LEVEL 7.4 MG/DL (8.8-10.2); CREATININE FOR GFR 2.95 MG/DL (0.70-1.30); GLOMERULAR FILTRATION RATE 22.9 (>49); POTASSIUM SERUM 3.7 MEQ/L (3.5-5.1)
[2018-06-20 08:54] VITALS: BP 163/72
[2018-06-20] MEDS: amLODIPine 10 MG TAB PO SCH (08:54)
[2018-06-20] MEDS: HEPARIN SOD (PORCINE) 5000 UNITS/ML VIAL SC SCH (08:54)
[2018-06-20] MEDS: LEVEMIR (INSULIN DETEMIR) 1 UNITS/0.01ML SC SCH (08:56)
[2018-06-20] MEDS: HumaLOG INSULIN (NovoLOG) PER UNIT SC SCH (08:56)
[2018-06-20] MEDS: FLUTICASONE PROP 0.05% NASAL SPRAY 16 GM (FLONASE) SCH (08:56)
[2018-06-20] MEDS ORDERED: PEN1MIS21 SC ×2 (10:38→11:26)
[2018-06-20] MEDS ORDERED: INSU1MIS20 SC ×2 (10:38→11:26)
[2018-06-20] MEDS ORDERED: INSUHUMDS SC ×2 (10:38→11:26)
[2018-06-20] MEDS ORDERED: LANC30MI XX (10:38)
--- NOTE | 2018-06-20 14:59 | DS.PDOC ---
Discharge Summary General Date of Admission June 10, 2018 at 21:43 Date of Discharge 06/20/18 Attending Physician: ELVA OROZCO MD Specialist/Consultants Involve: MARLON PRIDE MD @ Specialist/Consultants Involve Dr. Marquez Kerr General Surgery Discharge Summary PROCEDURES PERFORMED DURING STAY: peritoneal Dialysis. Left Kidney Biopsy ADMITTING DIAGNOSES: 1. Acute Renal Failure 2. IDDM Type 2 3. Hyperkalemia 4. Chronic Diastolic Congestive Heart Failure DISCHARGE DIAGNOSES: 1. Acute Non-oliguirc Renal Failure 2. IDDM Type 2 3. Hyperkalemia 4. Chronic Diastolic Congestive Heart Failure COMPLICATIONS/CHIEF COMPLAINT: ARF. HISTORY OF PRESENT ILLNESS: Patient is a 67 year old male who had felt weak and dizzy for approximately 1 week and presented to [facility] where he was found to have acute renal failure. The patient was subsequently transferred to [facility] for further management and evaluation with Nephrology. He had accompanying intermittent low back pain and chills. He has stated that he was urinating less than usual because he was drinking less. He otherwise had no other complaints. HOSPITAL COURSE: Once at [facility], the patient received a CT abdomen which demonstrated pneumatosis of the cecum and ascending colon, chronic calcific pancreatitis, nonobstructing calculus in the lower pole of the left kidney, and hepatic steatosis. Regarding the finding of pneumatosis, his abdominal exam was benign. The patient was evaluated by general surgery however no intervention was performed. The patient was given flagyl. Lab work demonstrated hyperkalemia and a creatinine of 6.19. According to the patients previous records, his Cr in 04/29/18 was 1.52 and 1.09 in 01/15/2018. A complete review of the patients medications was made and all nephrotoxic agents were discontinued. The patient was given IV fluid hydration which only demonstrated minimal improvement in the patients Cr. Nephrology was consulted for further management. Due to the acuity and severity of his loss of kidney function with normal appearing kidneys on CT imaging it was felt that the patients renal failure may have been secondary to acute tubular necrosis or some nephrotic or nephritic syndrome. The patient was started on hemodialysis and subsequently received a Left kidney biopsy. The patient continued on dialysis and was found fit for discharge with outpatient dialysis DISCHARGE MEDICATIONS: Please see below. ALLERGIES: Please see below. PHYSICAL EXAMINATION ON DISCHARGE: VITAL SIGNS: Please see below. GENERAL: Awake, alert, and oriented. Appears in no acute distress. Sitting comfortably in chair HEENT: Atrumatic, normocephalic. Eyes are nonicteric. Trachea is midline. Mucous membranes are pink and moist NECK: No palpable cervical chain lymphadenopathy CARDIOVASCULAR EXAMINATION: Normal S1, S2. Regular rate and rhythm. No clicks rubs or murmurs RESPIRATORY EXAMINATION: Clear vesicular breath sounds bilaterally with good respiratory effort. No wheezes, rhonci, or rales ABDOMINAL EXAMINATION: Soft, nondistended. Nontender to palpation throughout. No rebound tenderness or guarding. Positive bowel sounds throughout EXTREMITIES: 2-3 mm pitting edema in bilateral lower extremities SKIN: No rashes or lesions NEUROLOGICAL EXAMINATION: No focal neurological deficits PSYCHIATRIC EXAMINATION: Mood and affect appear appropriate LABORATORY DATA: Please see below. IMAGING: THIS REPORT CONTAINS FINDINGS THAT MAY BE CRITICAL TO PATIENT CARE. The findings were verbally communicated via telephone conference with ALEXANDR ERVIN at 12:35 AM EDT on 06/11/2018. The findings were acknowledged and understood. Electronically signed by: Dori Dalal On 06/11/2018 00:35:59 AM DD: DORI DALAL MD 06/10/18 2255 DT: KAILEY 06/11/18 0035 DS: FRANCK 06/11/18 0035 EXAM: CT Abdomen and Pelvis Without Contrast EXAM DATE/TIME: 06/10/2018 10:55 PM CLINICAL HISTORY: 67 years old, male; Abdominal pain; Generalized; Additional info: Acute renal failure TECHNIQUE: Imaging protocol: Axial computed tomography images of the abdomen and pelvis without contrast. Coronal and sagittal reformatted images were created and reviewed. Radiation optimization: All CT scans at this facility use at least one of these dose optimization techniques: automated exposure control; mA and/or kV adjustment per patient size (includes targeted exams where dose is matched to clinical indication); or iterative reconstruction. COMPARISON: CT ABD PELVIS W/O CONTRAST 06/25/2012 2:17 PM FINDINGS: ABDOMEN: Liver: The liver is low in density. Gallbladder and bile ducts: Normal. No calcified stones. No ductal dilation. Pancreas: Calcifications noted to within the pancreas particularly the pancreatic head. Spleen: Normal. No splenomegaly. Adrenals: Normal. No mass. Kidneys and ureters: 2.5 mm calcification lower pole left kidney. No hydronephrosis in either kidney Stomach and bowel: There appears to be pneumatosis in the right side of the colon. No bowel wall thickening. No abnormally dilated bowel loops. Appendix: No evidence of appendicitis. PELVIS: Bladder: Unremarkable as visualized. Reproductive: The prostate measures 4 x 5.3 x 4.9 cm. ABDOMEN and PELVIS: Intraperitoneal space: Normal. No free air. No significant fluid collection. Bones/joints: Degenerative changes of the lumbar spine most significant at L4-5 and L5-S1. Soft tissues: There is an umbilical hernia containing fat. Trace amount of soft tissue thickening/fluidnoted within the herniated fat. Mild generalized stranding of the intra-abdominal fat. Small inguinal hernias bilaterally containing fat. No evidence of strangulation. Vasculature: Normal. No abdominal aortic aneurysm. Lymph nodes: Normal. No enlarged lymph nodes. Other findings: There is generalized arteriosclerosis. IMPRESSION: 1. Pneumatosis suggested of the cecum and ascending colon. 2. Chronic calcific pancreatitis. 3. Nonobstructing calculus in the lower pole left kidney. 4. Hepatic steatosis 5. Umbilical hernia containing fat. Trace amount of fluid or soft tissue thickening noted within the hernia Electronically signed by: Dori Dalal On 06/11/2018 00:29:15 AM Clinical: Shortness of breath . Comparison: 03/21/2013 . Findings: The mediastinum and cardiac silhouette are stable and within normal limits for portable technique. The lung barr are clear without acute consolidation, effusion, or pneumothorax. Skeletal structures are intact. Impression: No acute cardiopulmonary process appreciated. Electronically Signed by Mg Pepe MD 06/12/2018 07:22 A RIGHT KNEE SERIES: Two views. HISTORY: Right knee pain. FINDINGS: AP and lateral views of the right knee demonstrate vascular calcification. There is osteoarthritic spurring of the superior and inferior pole of the patella. Dystrophic calcification is seen along the course of the patellar tendon consistent with chronic patellar tendonitis. No fracture or other acute bony abnormality is seen. IMPRESSION: Mild osteoarthritis. Vascular calcification. Patellar tendon calcification consistent with chronic tendonitis. No acute bony abnormality. Electronically Signed by Carmelo Salguero MD 06/12/2018 03:39 P Ultrasound guidance: History: Renal failure. Findings: Sonographic guidance is provided Dr. Pride who performed ultrasound-guided needle biopsy procedure of the lower pole of the left kidney. Electronically Signed by Carmelo Salguero MD 06/19/2018 01:38 P PROGNOSIS: GOOD ACTIVITY: [As tolerated]. DIET: Renal Diet DISCHARGE PLAN: Patient is to be discharged home today with dialysis tonight and on Sunday06/21/18. He is to follow-up with Nephrology regarding the results of his kidney biopsy. He is to stop taking his home lisinopril. He is to follow-up with PCP in 2-4 weeks for management of his chronic medical conditions DISPOSITION: Home, Self-Care. TIME SPENT ON DISCHARGE: Greater than 40 minutes. Vital Signs/I&Os Vital Signs Date Time Temp Pulse Resp B/P (MAP) Pulse Ox O2 Delivery O2 Flow Rate FiO2 06/20/18 08:54 59 163/72 06/20/18 06:00 97.9 18 96 I&O- Last 24 Hours up to 6 AM 06/20/18 06:00 Intake Total 1120 ml Output Total 3525 ml Balance -2405 ml Laboratory Data Labs 24H Laboratory Tests 2 06/19/18 17:48: Bedside Glucose (Misc Panel) 114 06/19/18 21:08: Bedside Glucose (Misc Panel) 180H 06/20/18 06:05: Bedside Glucose (Misc Panel) 153H 06/20/18 08:03: Nucleated Red Blood Cells % (auto) 0.0, Blood Urea Nitrogen 41H, Creatinine 2.95H, Sodium Level 138, Potassium Level 3.7, Chloride Level 103, Carbon Dioxide Level 25, Anion Gap 10, Glomerular Filtration Rate 22.9L, Calcium Level 7.4L, P hosphorus Level 6.0H, Albumin 2.7L CBC/BMP Laboratory Tests 06/20/18 08:03 Red Blood Count 3.46 L, Mean Corpuscular Volume 83.8, Mean Corpuscular Hemoglobin 26.9 L, Mean Corpuscular Hemoglobin Concent 32.1, Red Cell Distribution Width 15.1 H, Anion Gap 10 FSBS Laboratory Tests Test 06/19/18 17:48 06/19/18 21:08 06/20/18 06:05 Range/Units Bedside Glucose (Misc Panel) 114 180 153 80-115 MG/DL Discharge Medications Scheduled Amlodipine Besylate (Amlodipine Besylate) 10 Mg Tablet, 10 MG PO DAILY, (Reported) Atorvastatin Calcium (Atorvastatin Calcium) 40 Mg Tablet, 40 MG PO QPM, (Reported) TAKES AT DINNERTIME Budesonide/Formoterol (Symbicort 160-4.5 Mcg Inhaler) 6 Gm Hfa.aer.ad, 2 PUFF INH BID, (Reported) Bumetanide (Bumetanide) 2 Mg Tablet, 2 MG PO BID, (Reported) Cetirizine HCl (Cetirizine HCl) 10 Mg Tablet, 10 MG PO DAILY, (Reported) Fluticasone Propionate (Flonase Allergy Relief) 9.9 Ml [place].susp, 1 SPRAY NA BID, (Reported) Gabapentin (Gabapentin) 300 Mg Capsule, 300 MG PO QPM, (Reported) TAKES AT DINNERTIME Insulin Glargine,Hum.rec.anlog (Lantus Solostar) 100 Unit/1 Ml Insuln.pen, 45 UNITS SC DAILY, (Reported) Insulin Human Lispro (Humalog) 100 Unit/1 Ml Vial, 1 UNITS SC AC According to sliding scale AC protocol Scheduled PRN Albuterol Sulf (Albuterol Sulfate) 2.5 Mg/3 Ml Vial.neb, 2.5 MG INH TID PRN for SHORTNESS OF BREATH, (Reported) Albuterol Sulfate (Ventolin Hfa) 18 Gm Hfa.aer.ad, 2 PUFF INH Q4H PRN for SHORTNESS OF BREATH, (Reported) Allergies Coded Allergies: NSAIDS (Non-Steroidal Anti-Inflamma (Verified Allergy, Severe, ANAPHYLAXIS, 06/10/18) aspirin (Verified Allergy, Severe, ANAPHYLAXIS, 06/10/18) GME ATTESTATION GME ATTESTATION My faculty preceptor for this patient encounter was physically present during the encounter and was fully available. All aspects of the patient interview, examination, medical decision making process, and medical care plan development were reviewed and approved by the faculty preceptor. The faculty preceptor is aware and concurs with the plan as stated in the body of this note and will attest to such by his/her cosignature. ATTENDING NOTE I saw and evaluated the patient. I agree with the findings and plan of care as documented in the resident's note. I spent 45 minutes coordinating this patient's discharge. CHUY HASSAN DO June 20, 2018 14:59 ELVA OROZCO MD June 21, 2018 06:46
--- NOTE | 2018-06-20 15:19 | IPNPDOC ---
Text Note Date of Service The patient was seen on 06/20/18. NOTE Nephrology Service: Subjective: Patient seen and examined at bedside lying in bed. Denies fevers, chills, chest pain, SOB. Last dialysis was yesterday 06/19 with 3000 mL removed. Still has moderate edema of lower extremities. Dialysis has been scheduled for patient on a Sunday, , Sunday schedule. Kidney function has not recovered. Kidney biopsy done two days ago. Results will be back either today or tomorrow. Patient will have dialysis as outpatient at 4:30 PM today with goal of 3 liters of fluid removal, and then on Sunday. Patient denies any overnight events. Will likely be discharged home today. Objective: Vitals: T 97.9 P 59 RR 18 BP 163/72 Pulse Ox: 96% room air Weight: 95.3 kg yesterday Intake: 900 ml Output: 3770 ml Balance: (-) 2870 ml UO: 0.34 mL/kg/hr GENERAL APPEARANCE: Pleasant and cooperative adult male lying up in bed. Awake, alert, oriented x 3. HEENT: NCAT. NECK: Supple. No JVD. RESPIRATORY: Clear to Auscultation bilaterally. No wheezes/rales/rhonchi. CARDIOVASCULAR: Normal S1S2, RRR, no murmurs appreciated. ABDOMEN: Soft, nontender, nondistended. EXTREMITIES: (+)2 pitting edema in bilateral lower extremities. No clubbing/cyanosis. INTEGUMENTARY: No rashes or lesions noted. NEUROLOGICAL: No focal neurologic deficits. PSYCHIATRIC: Appropriate mood and affect. Laboratory data: CBC: WBC 13.6, Hgb 9.3, Platelets 271 BMP: Na 138, K 3.7, Cl 103, CO2 25, BUN 41, Cr 2.95, GFR: 22.9, Glucose 120, Ca 7.4, Phos 6.0, 2.7 Imaging: No new imaging today. Current Inpatient Medications: Drisdol 59086 units PO Sunday Prednisone 20 mg PO daily Aranesp 100 mcg HD IV Amlodipine 10 mg PO daily Isosorbide Dinitrate 30 mg q8h PO Gabapentin 300 mg PO daily No medication changes noted today. Assessment/Plan: 1. Nonoliguric Acute Renal Failure: Last had dialysis via on 06/19 via permacath with 3000 mL removed. Unfortunately, kidney function has not recovered. GFR at 22.9 today. Etiology of ARF still unclear. Next dialysis will be later today at 4:30 PM as outpatient. Then, Sunday will be the next one. Patient will be on a Sunday, , Sunday schedule for dialysis as outpatient. Kidney biopsy results pending. 2. Hypertension: BP fluctuates at being high at certain times in the day, but is mainly controlled and stable. Continue Amlodipine and Isosorbide Dinitrate at current doses. Since Nephrotoxic, will recommend not restarting home lisinopril at discharge. Would recommend patient be restarted on his bumetanide diuretic as it will help with patient's edema. Have communicated with primary team and Dr. Schumacher regarding this. 3. Anemia: Likely secondary to kidney failure and development of a chronic kidney disease process. Continue Aranesp for now. Continue to monitor CBC. Hgb a t 9.3 today and in stable range. 4. Hypervolemia: Lower extremities with moderate pitting edema still today. Fluid status managed with hemodialysis. Continue to monitor clinically. No signs of symptomatic fluid overload. My preceptor for this patient encounter was Dr. Paula Pride, and was ph ysically present in the building during the encounter and was fully available. As needed, all aspects of the patient interview, examination, medical decision making process, and medical care plan development were reviewed and approved by the preceptor. Preceptor is aware and concurs with the plan as stated in the body of this note and will attest to such by his/her cosignature. A-FIB/CHADSVASC A-FIB History Current/History of A-Fib/PAF?: No Current Oral Anticoagulant The: No VS,Fishbone, I+O VS, Fishbone, I+O Laboratory Tests 06/20/18 08:03 Red Blood Count 3.46 L, Mean Corpuscular Volume 83.8, Mean Corpuscular Hemoglobin 26.9 L, Mean Corpuscular Hemoglobin Concent 32.1, Red Cell Distribution Width 15.1 H, Anion Gap 10 Vital Signs Date Time Temp Pulse Resp B/P (MAP) Pulse Ox O2 Delivery O2 Flow Rate FiO2 06/20/18 08:54 59 163/72 06/20/18 06:00 97.9 18 96 I&O- Last 24 Hours up to 6 AM 06/20/18 06:00 Intake Total 1120 ml Output Total 3525 ml Balance -2405 ml ANI KNAPP DO June 20, 2018 15:19
--- NOTE | 2018-07-12 09:26 | REPIR ---
DATE OF PROCEDURE: 06/13/2018 PREOPERATIVE DIAGNOSIS: Acute renal failure. POSTOPERATIVE DIAGNOSIS: Acute renal failure. PROCEDURE: Ultrasound fluoroscopic guided right internal jugular vein 19 cm tipped cuff BioFlo DuraMax tunneled central venous catheter placement. ATTENDING SURGEON: Dr. Ben Landry GLASS BLOWER HELPER: Andriy Hunt ANESTHESIA: Local with 20 mL of local. INDICATION: The patient is a 67-year-old male with acute renal failure who requires access for hemodialysis. The patient will undergo placement of a tunneled central venous catheter. FLUORO TIME: 0.1 minutes. CONTRAST: None. COMPLICATIONS: None. DRAINS: None. SPECIMENS: None. DESCRIPTION OF PROCEDURE: The patient was taken to the angiography suite, placed supine on the angiography room table and then prepped and draped in a standard surgical fashion. The right internal jugular vein was cannulated with a micropuncture needle while using ultrasound guidance. The catheter was advanced through the introducer sheath and positioned with the tip in the superior cava/right atrial junction. The catheter was aspirated with both ports noted to aspirate easily and flushed with heparinized saline. The catheter was secured to the right anterior chest wall. Dressings were then applied. The patient tolerated the procedure well. All instrument, sponge and needle counts were correct at the end of the case. There were no complications.
== END 2018-06-20 11:35 | disposition home or self-care (01) | DRG 673 ==
LOC: M PCU 21:43 → M MS4PR 06-12 21:40 → M MS5PR 06-14 21:10
PROVIDERS: ADMIT Internal Medicine; ATTEND Internal Medicine
PROC: 0JH63XZ Insertion of Tunneled Vascular Access Device into Chest Subcutaneous Tissue and Fascia, Percutaneous Approach (ICD-10-PCS; principal; 2018-06-13)
PROC: 02HV33Z Insertion of Infusion Device into Superior Vena Cava, Percutaneous Approach (ICD-10-PCS; 2018-06-13)
PROC: 5A1D70Z Performance of Urinary Filtration, Intermittent, Less than 6 Hours Per Day (ICD-10-PCS; 2018-06-14)
PROC: 0TB13ZX Excision of Left Kidney, Percutaneous Approach, Diagnostic (ICD-10-PCS; 2018-06-18)
DX: N17.9 Acute kidney failure, unspecified (principal); I50.33 Acute on chronic diastolic (congestive) heart failure; K86.1 Other chronic pancreatitis; E87.2 Acidosis; E11.40 Type 2 diabetes mellitus with diabetic neuropathy, unspecified; E87.5 Hyperkalemia; N20.0 Calculus of kidney; K63.89 Other specified diseases of intestine; K42.9 Umbilical hernia without obstruction or gangrene; M51.36 Other intervertebral disc degeneration, lumbar region; Z79.899 Other long term (current) drug therapy; Z88.6 Allergy status to analgesic agent; Z79.4 Long term (current) use of insulin; I11.0 Hypertensive heart disease with heart failure; J45.909 Unspecified asthma, uncomplicated; E78.5 Hyperlipidemia, unspecified; E11.649 Type 2 diabetes mellitus with hypoglycemia without coma; M10.9 Gout, unspecified; E83.42 Hypomagnesemia; N25.81 Secondary hyperparathyroidism of renal origin; E87.70 Fluid overload, unspecified

== ENCOUNTER → 2018-07-03 | Outpatient (CLI) | payer OTHER ==
[~2018-07-03] MED LIST changes: +ALBU83IN INH; +ALL10TAB28 PO; +AMLO-151 PO; +AMLO10TA5 PO; +ATOR40TA75 PO; +BUME2TAB3 PO; +FLON1SPR; +GABA-843 PO; +INSU1MIS20 SC; +INSUHUMDS SC; +LANC30MI XX; +LANTINJ4 SC; +LISI40TA PO; +PEN1MIS21 SC; +POTA10TA14 PO; +SYMB16INH INH; +VENTAER INH
--- NOTE | 2018-07-03 12:46 | REP ---
BILATERAL UPPER EXTREMITY DUPLEX DOPPLER ARTERIAL AND VENOUS ULTRASOUND FOR AV FISTULA MAPPING: Real-time ultrasound evaluation of bilateral upper extremity arterial and venous systems performed. On the right, the basilic vein measures 5 mm at the mid humerus and 2 mm at the lower humerus, 1 mm throughout the forearm, not seen at the wrist. Median cubital vein measures 3 mm. Right cephalic vein could not be visualized at the upper humerus. It measures 1 mm at the lower humerus and upper forearm and 2 mm in the distal forearm and wrist. Right upper extremity arterial structures demonstrate normal flow velocities with biphasic and triphasic waveforms. Right axillary artery measures 6 mm as does the brachial artery. Right radial artery measures 4 mm in the proximal forearm and 3 mm distally. Right ulnar artery measures 4 mm proximally and 3 mm distally. On the left, the basilic vein measures 3 mm at the mid humerus and 2 mm in the lower humerus and forearm, 1 mm in the lower forearm, not seen at the wrist. Median cubital vein measures 2 mm. Left cephalic vein could not be visualized at the upper humerus and measures 1 mm at the level of the lower humerus. Left cephalic vein measures 2 mm in the upper forearm and 4 mm in the lower forearm. The left upper extremity arterial structures demonstrate normal flow velocities with biphasic waveforms. Left axillary artery measures 8 mm, brachial artery 6 mm proximally and 5 mm distally, left radial artery 3 mm, and left ulnar artery 4 mm proximally and 2 mm distally. Incidental note is made of a nodule in the left lobe of the thyroid 1.2 x 1.0 x 1.4 cm, appearing complex with both solid and cystic components. Electronically Signed by Oh Abdi MD 07/03/2018 02:14 P
== END ==
LOC: M RAD 08:27
PROVIDERS: ATTEND Internal Medicine Nephrology
DX: Z01.818 Encounter for other preprocedural examination (principal); N18.6 End stage renal disease; E04.1 Nontoxic single thyroid nodule

== ENCOUNTER → 2018-08-06 | Outpatient (REF) | payer OTHER | LOC: M SFHCCLAY 16:01 | PROVIDERS: ATTEND Family Medicine | DX: E11.49 Type 2 diabetes mellitus with other diabetic neurological complication (principal); Z53.9 Procedure and treatment not carried out, unspecified reason ==

== ENCOUNTER → 2018-08-07 | Outpatient (REF) | payer OTHER ==
[2018-08-07 11:56] LABS: CALCIUM LEVEL 8.2 MG/DL (8.8-10.2); GLOMERULAR FILTRATION RATE 16.1 (>49); POTASSIUM SERUM 3.6 MEQ/L (3.5-5.1)
[2018-08-07 13:31] LABS: HEMOGLOBIN A1c 7.7 %
== END ==
LOC: M SFHCCLAY 08:09
PROVIDERS: ATTEND Family Medicine
DX: E11.49 Type 2 diabetes mellitus with other diabetic neurological complication (principal)

== ENCOUNTER 2018-09-06 09:15 | Day surgery (SDC) | payer OTHER ==
[~2018-09-06] VITALS: Ht 175.3 cm; Wt 78.7 kg
[~2018-09-06 09:15] MED LIST changes: +CALCIUM ACETATE PO; +LIDOCAINE 1% MDV 20ML VIAL SQ PRN; +LR 1,000 ML IV ONE; +VITA1CAP25 PO
[2018-09-06] MEDS ORDERED: LEVALBUTEROL 1.25 MG/0.5 ML CONCENTRATE NEB As Ordered ONE (10:23)
[2018-09-06] MEDS ORDERED: NS 1,000 ML IV SCH (10:30)
[2018-09-06] MEDS ORDERED: LEVALBUTEROL 1.25 MG/0.5 ML CONCENTRATE NEB INH ONE (10:30)
[2018-09-06] MEDS ORDERED: MIDAZOLAM INJ 2 MG/2 ML VIAL (J2250) As Ordered ONE (11:07)
[2018-09-06] MEDS ORDERED: LIDOCAINE 2% INJ 100 MG/5 ML SDV (FOR ANES.) As Ordered ONE (11:07)
[2018-09-06] MEDS ORDERED: fentaNYL 100 MCG/2 ML INJECTION (J3010) As Ordered ONE (11:07)
[2018-09-06] MEDS ORDERED: PROPOFOL 200 MG/20 ML VIAL As Ordered ONE ×2 (11:07→12:35)
[2018-09-06] MEDS ORDERED: BUPIVACAINE HCL 0.5% 30 ML VIAL As Ordered ONE (11:35)
[2018-09-06] MEDS ORDERED: LIDOCAINE 1% SDV INJ 30 ML VIAL As Ordered ONE (11:37)
[2018-09-06] MEDS ORDERED: HEPARIN SOD (PORCINE) 5000 UNITS/ML VIAL As Ordered ONE (12:04)
[2018-09-06 14:25] VITALS: BP 128/63
[2018-09-12] MEDS ORDERED: VELP5CHW PO (12:19)
--- NOTE | 2018-09-19 20:59 | RO ---
DATE OF PROCEDURE: 09/06/2018 PREOPERATIVE DIAGNOSIS: End-stage renal disease, right internal jugular vein tunneled central venous catheter for hemodialysis access. POSTOPERATIVE DIAGNOSIS: End-stage renal disease, right internal jugular vein tunneled central venous catheter for hemodialysis access. PROCEDURE: Left brachiocephalic arteriovenous fistula creation. SURGEON: Dr. Ben Landry COMBER SETTER: None. INDICATION: The patient is a 67-year-old male with end-stage renal disease who requires long-term access for hemodialysis. The patient will undergo a left brachiocephalic arteriovenous fistula creation. ANESTHESIA: Local monitored anesthesia care (MAC). ESTIMATED BLOOD LOSS: 10 mL. IV FLUIDS: 200 mL. HEPARIN: None. COMPLICATIONS: None. DRAINS: None. SPECIMENS: None. IMPLANTS: None. DESCRIPTION OF PROCEDURE: The patient was taken to the operating room and placed supine on the operating room table and then prepped and draped in a standard surgical fashion. The incision was made transversely at the antecubital fossa. The cephalic vein was dissected as far distal as possible and then anastomosed to the brachial artery in an end-to-side fashion using #6-0 Prolene suture. There was good flow in the cephalic vein, which had to dual outflow through the cephalic vein and basilic vein into the upper arm. Hemostasis was obtained after which dressings were applied once the skin was approximated using #3-0 Monocryl suture in a running subcuticular fashion. Steri-Strips and dressings were applied. The patient tolerated the procedure well. All instrument, sponge and needle counts were correct at the end of the case. There were no complications. Dr. Landry was present for and directed the entire case. The patient was transferred to the recovery room awake, alert, extubated and in stable condition. Edited 09/20/2018 [facility]
== END 2018-09-06 14:34 | disposition home or self-care (01) ==
LOC: M SDC 09:15
PROVIDERS: ATTEND Surgery Vascular Surgery
DX: N18.6 End stage renal disease (principal); I12.0 Hypertensive chronic kidney disease with stage 5 chronic kidney disease or end stage renal disease; E78.00 Pure hypercholesterolemia, unspecified; M12.9 Arthropathy, unspecified; E10.9 Type 1 diabetes mellitus without complications; E04.1 Nontoxic single thyroid nodule; J45.909 Unspecified asthma, uncomplicated; J30.89 Other allergic rhinitis; G47.30 Sleep apnea, unspecified; Z88.6 Allergy status to analgesic agent; Z79.899 Other long term (current) drug therapy; Z79.4 Long term (current) use of insulin; Z95.9 Presence of cardiac and vascular implant and graft, unspecified
CPT/HCPCS: 36415; 36821; 84132; J2250; J3010

== ENCOUNTER → 2018-09-12 | Outpatient (CLI) | payer OTHER ==
[~2018-09-12] MED LIST changes: +LIDOCAINE 1% MDV 20ML VIAL As Ordered ONE; -LIDOCAINE 1% MDV 20ML VIAL SQ PRN; -LR 1,000 ML IV ONE; +VELP5CHW PO
[2018-09-12 13:55] VITALS: BP 177/75
--- NOTE | 2018-09-13 09:35 | REP ---
Ultrasound-guided left thyroid biopsy This procedure was performed by OLGA Sanchez, under the personal supervision of Dr. Abdi. The patient has a history of a complex nodule measuring 1.2 x 1.0 x 1.4 cm in the left lobe of the thyroid on an ultrasound dated 07/03/2018. The risks and the benefits of the procedure were explained to the patient and informed consent was obtained both verbally and written. Directly prior to the start of the procedure, a formal time out was completed in the procedure room. The left thyroid nodule was localized using ultrasound guidance. The skin was prepped and draped in a sterile fashion. 1% lidocaine was used as a local anesthetic. Using ultrasound guidance 4 fine-needle aspirations were obtained using 25 gauge needles of the left thyroid nodule. The patient tolerated the procedure well and there were no immediate complications. After the appropriate amount of monitored convalescence the patient was discharged from the department. Reviewed by OLGA Sanchez 09/12/2018 03:50 P Electronically Signed by Oh Abdi MD 09/13/2018 09:26 A
== END ==
LOC: M IRPRO 11:44
DX: E04.1 Nontoxic single thyroid nodule (principal)

== ENCOUNTER 2018-10-25 07:58 | Day surgery (SDC) | payer OTHER ==
[~2018-10-25] VITALS: Ht 175.3 cm; Wt 78.8 kg
[2018-10-25] MEDS: NS 1,000 ML IV ONE (06:00)
[~2018-10-25 07:58] MED LIST changes: -ALL10TAB28 PO; +ALL10TAB29 PO; -LIDOCAINE 1% MDV 20ML VIAL As Ordered ONE; +LOSA50TA88 PO
[2018-10-25] MEDS ORDERED: HumaLOG INSULIN (NovoLOG) PER UNIT As Ordered ONE (09:28)
[2018-10-25] MEDS ORDERED: PROPOFOL 200 MG/20 ML VIAL As Ordered ONE ×2 (09:57→10:41)
[2018-10-25] MEDS ORDERED: LIDOCAINE 2% INJ 100 MG/5 ML SDV (FOR ANES.) As Ordered ONE (09:57)
[2018-10-25] MEDS ORDERED: HumaLOG INSULIN (NovoLOG) PER UNIT SC ONE (10:00)
--- NOTE | 2018-10-25 10:48 | ROOR ---
Patient Name: Shawn Scott Procedure Date: 10/25/2018 9:52 AM Date of : 1950 Age: 67 Room: [facility] Gender: Male Note Status: Finalized Procedure: Colonoscopy Indications: Screening for colorectal malignant neoplasm Providers: Oscar Otto MD Referring MD: SANAZ BONNER DO Requesting Provider: Medicines: Monitored Anesthesia Care Complications: No immediate complications. Procedure: Pre-Anesthesia Assessment: - Prior to the procedure, a History and Physical was performed, and patient medications and allergies were reviewed. The patient is competent. The risks and benefits of the procedure and the sedation options and risks were discussed with the patient. All questions were answered and informed consent was obtained. Patient identification and proposed procedure were verified by the physician, the nurse and the anesthesiologist in the procedure room. Mental Status Examination: alert and oriented. CV Examination: regular rate and rhythm. Prophylactic Antibiotics: The patient does not require prophylactic antibiotics. Prior Anticoagulants: The patient has taken no previous anticoagulant or antiplatelet agents. ASA Grade Assessment: IV - A patient with severe systemic disease that is a constant threat to life. After reviewing the risks and benefits, the patient was deemed in satisfactory condition to undergo the procedure. The anesthesia plan was to use monitored anesthesia care (MAC). Immediately prior to administration of medications, the patient was re-assessed for adequacy to receive sedatives. The heart rate, respiratory rate, oxygen saturations, blood pressure, adequacy of pulmonary ventilation, and response to care were monitored throughout the procedure. The physical status of the patient was re-assessed after the procedure. The was introduced through the anus and advanced to the cecum, identified by appendiceal orifice and ileocecal valve. The colonoscopy was somewhat difficult due to inadequate bowel prep. Successful completion of the procedure was aided by lavage. The patient tolerated the procedure well. The quality of the bowel preparation was inadequate. Findings: The perianal and digital rectal examinations were normal. Liquid black stool was found in the entire colon, but it was possible to remove this with copious irrigation. Lavage of the area was performed using a moderate amount of tap water, resulting in clearance with adequate visualization. The entire examined colon appeared normal. Impression: - Preparation of the colon was inadequate. - Stool in the entire examined colon. - The entire examined colon is normal. - No specimens collected. Recommendation: - Discharge patient to home. - Resume previous diet. - Continue present medications. Oscar Otto MD Oscar Otto MD 10/25/2018 10:47:37 AM Electronically signed by Oscar Otto MD Number of Addenda: 0 Note Initiated On: 10/25/2018 9:52 AM Estimated Blood Loss: Estimated blood loss: none.
[2018-10-25 11:05] VITALS: BP 188/87
== END 2018-10-25 11:17 | disposition home or self-care (01) ==
LOC: M OPP 07:58
PROVIDERS: ATTEND Surgery
DX: Z12.11 Encounter for screening for malignant neoplasm of colon (principal); Z79.4 Long term (current) use of insulin; Z79.899 Other long term (current) drug therapy; Z88.8 Allergy status to other drugs, medicaments and biological substances

== ENCOUNTER → 2018-10-31 | Outpatient (CLI) | payer OTHER ==
[~2018-10-31] MED LIST changes: +BUPIVACAINE HCL 0.5% 10 ML VIAL As Ordered ONE; +ISOVUE-300 61% 50ML VIAL (Q9967) As Ordered ONE; +LIDOCAINE 2% MDV 20 ML VIAL As Ordered ONE
[2018-10-31 13:20] VITALS: BP 200/96
--- NOTE | 2018-10-31 20:45 | ROOPDOC ---
[facility] Report Of Operation Report of Operation DATE OF PROCEDURE: PREPROCEDURE DIAGNOSES: End-stage renal disease requiring access for renal replacement therapy. Dysfunctional internal jugular vein tunneled central brooke ous catheter. POSTPROCEDURE DIAGNOSES: End-stage renal disease requiring access for renal replacement therapy. Dysfunctional internal jugular vein tunneled central venous catheter. PROCEDURE: Fluoroscopic guided internal jugular vein 19 cm tip to cuff tunneled central venous catheter evaluation. Removal of the internal jugular vein tunneled central venous catheter with re moval of a cm tip to cuff catheter. Placement of a internal jugular vein tunneled central venous catheter with a cm tip to cuff hemodialysis catheter. ATTENDING SURGEON: DR. Ben Landry M.D. ENVIRONMENTAL ENGINEERING TECHNICIAN: INDICATION: Patient is . Patient will undergo evaluation of the internal jugular vein tunneled central venous catheter with possible removal, replacement, angioplasty, stenting, atherectomy and/or placement of a catheter at a new location. The procedure was described and explained to the patient in detail including drawing of pictures demonstrating the procedure and anatomy. Risks, benefits and alternative treatment options were discussed with the patient. Alternative treatment options included but were not limited to no intervention. Benefits included but were not limited to access for hemodialysis until permanent access for renal replacement therapy is created and/or functional. Risks included, but were not limited to infection, bleeding, pneumothorax, hemothorax, possible need for open surgical intervention, allergic reaction or complication from prepping and draping materials, possible need for transfusion of blood products, allergic and/or adverse reaction to the local or IV anesthetic , cerebrovascular accident, myocardial infarction, pulmonary embolus, deep venous thrombosis, loss of limb, loss of life, poor satisfaction, poor outcome and or results. Risks of not performing the procedure included but were not limited to inability to obtain renal replacement therapy via hemodialysis and . The patient's questions were answered. The patient voices understanding and acceptance of these risks, benefits and alternative treatment options. The patient voices acceptance of the risks associated with the procedure and consents to proceed. There were no promises or guarantees made to the patient regarding the outcome or results of the procedure. ANESTHESIA: Local with mL of 2% lidocaine mixed with 0.5% Marcaine. Sedation time: EBL: ml. IVF: ml. FLUORO TIME: minutes. CONTRAST: [None]. COMPLICATIONS: None. DRAINS: None. SPECIMENS: None. IMPLANTS: internal jugular vein tunneled central venous catheter with use of a cm tip to cuff hemodialysis catheter. DESCRIPTION OF PROCEDURE: Patient was taken to the angiography suite, placed supine on the angiography room table and then prepped and draped in a standard surgical fashion. A procedural timeout was conducted by myself and the team members in the room confirming the correct patient, procedure and laterality. Fluoroscopy was used to evaluate the tunneled right internal jugular vein central venous catheter which showed the catheter tip to be in the superior vena cava right atrial junction with . Both ports of the catheter were aspirated noted to not aspirate at all. A catheter flow study was . Two stiff angled glide wires were advanced through the catheter ports and advanced into the inferior vena cava. The skin and subcutaneous tissue overlying the catheter and subcutaneous cuff were then anesthetized with 2% lidocaine mixed with 0.5% Marcaine. The subcutaneous cuff were sharply dissected free through the entry site in the chest. The catheter was removed and there was . The new catheter was positioned under fluoroscopic guidance with the tip in the superior vena cava right atrial junction after being advanced over the 2 angled glide wires under fluoroscopic guidance. Both ports of the catheter were aspirated, noted to aspirate easily and then flushed with heparinized saline. The catheter was secured to the right anterior chest wall using #2-0 Prolene suture after anesthetizing the overlying skin and subcutaneous tissue with 2% lidocaine mixed with 0.5% Marcaine. Dressings were applied. The patient tolerated the procedure well. All instrument, sponge and needle counts were correct at the end of the case. There were no complications. Dr. Landry was present for and directed the entire case. Patient was transferred to the recovery area and subsequently in stable condition. The tunneled central venous catheter is stable for use for hemodialysis access. RADIOLOGIC SUPERVISION AND INTERPRETATION: The initial fluoroscopic evaluation showed the internal jugular vein tunneled central venous catheter to be . A catheter flow study was . The catheter was removed over 2 stiff angled glide wires . Fluoroscopic guidance was then used to position the new catheter with the tip in the superior vena cava/right atrial junction after being advanced over the 2 stiff angled Glidewire's. Final fluoroscopic image showed the catheter to be in good position and good alignment with no pneumo- or hemothorax noted with the tip in the superior vena cava/right atrial junction. The tunneled central venous catheter is stable for use for hemodialysis access. CONCLUSION: PLAN: Blair Landry MD Oct 31, 2018 20:45
== END ==
LOC: M IRPRO 10-08 11:40
PROVIDERS: ATTEND Surgery Vascular Surgery
DX: T82.598A Other mechanical complication of other cardiac and vascular devices and implants, initial encounter (principal); N18.6 End stage renal disease; X58.XXXA Exposure to other specified factors, initial encounter; Y93.9 Activity, unspecified; Y92.9 Unspecified place or not applicable; Y99.9 Unspecified external cause status
CPT/HCPCS: 36581; 77001; C1750; C1769; C1894; Q9967

== ENCOUNTER → 2018-11-11 | Outpatient (REF) | payer OTHER ==
[~2018-11-11] MED LIST changes: -BUPIVACAINE HCL 0.5% 10 ML VIAL As Ordered ONE; +CALC1CAP31 PO; +CLOP75TA2; +COLA100C5 PO; +FLON1SPR NARES; +FOLI400T PO; +FURO40TA2; +HYDR-3911 PO; +HYDR10TAB; +ISOS30TAB PO; -ISOVUE-300 61% 50ML VIAL (Q9967) As Ordered ONE; +KEFL250C11 PO; -LIDOCAINE 2% MDV 20 ML VIAL As Ordered ONE; +LOSA100T50 PO; +METO50TA7 PO; +METO5TA PO; +MIRC75IN IJ; +NEUR300C PO; +VENO20IN5 IV; +VITAD400CA PO; +ZYRTTAB8 PO; +insulin
[2018-11-11 10:29] LABS: CALCIUM LEVEL 8.4 MG/DL (8.8-10.2); CHOLESTEROL RISK RATIO 2.074 (<5); CREATININE FOR GFR 4.5 MG/DL (0.70-1.30)
[2018-11-11 10:49] LABS: HEMOGLOBIN A1c 9.4 %
== END ==
LOC: M SFHCCLAY 07:13
PROVIDERS: ATTEND Family Medicine
DX: E11.49 Type 2 diabetes mellitus with other diabetic neurological complication (principal); E78.2 Mixed hyperlipidemia

== ENCOUNTER → 2018-11-13 | Outpatient (CLI) | payer OTHER ==
[~2018-11-13] MED LIST changes: -CALC1CAP31 PO; -CLOP75TA2; -COLA100C5 PO; -FLON1SPR NARES; -FOLI400T PO; -FURO40TA2; -HYDR-3911 PO; -HYDR10TAB; -ISOS30TAB PO; -KEFL250C11 PO; -LOSA100T50 PO; -METO50TA7 PO; -METO5TA PO; -MIRC75IN IJ; -NEUR300C PO; -VENO20IN5 IV; -VITAD400CA PO; -ZYRTTAB8 PO; -insulin
== END ==
LOC: M LAB 08:30
PROVIDERS: ATTEND Internal Medicine Nephrology
DX: N18.6 End stage renal disease (principal)

== ENCOUNTER 2018-11-21 23:49 | Emergency (ER) | payer OTHER ==
[~2018-11-21] VITALS: Ht 175.3 cm; Wt 77.3 kg
[2018-11-22 00:22] LABS: BASO # 0.1 10^3/uL (0.0-0.2); BASO % 1.3 % (0.0-1.0); EOS # 1.1 10^3/uL (0.0-0.5); EOS % 17.7 % (0.0-3.0); HEMATOCRIT 36.4 % (42.0-52.0); HEMOGLOBIN 11.5 g/dl (13.5-17.5); LYMPH # 1.2 10^3/uL (1.5-5.0); LYMPH % 18.5 % (24.0-44.0); MEAN CORPUSCULAR HGB CONC 31.6 g/dl (32.0-36.5); MEAN CORPUSCULAR VOLUME 88.8 fl (80.0-96.0); MONO # 0.5 10^3/uL (0.0-0.8); MONO % 8.3 % (0.0-5.0); NEUTROPHILS # 3.4 10^3/uL (1.5-8.5); NEUTROPHILS % 53.9 % (36.0-66.0); PLATELET COUNT, AUTOMATED 205 10^3/uL (150-450); WHITE BLOOD COUNT 6.4 10^3/uL (4.0-10.0)
[2018-11-22 00:54] LABS: CALCIUM LEVEL 7.7 MG/DL (8.8-10.2); CK-MB VALUE MASS 2.9 NG/ML (<3.6); CREATININE FOR GFR 3.61 MG/DL (0.70-1.30); GLOMERULAR FILTRATION RATE 18.1 (>49); MB/CK RELATIVE INDEX 2.54 (< OR =4); POTASSIUM SERUM 4.1 MEQ/L (3.5-5.1); TROPONIN I 0.02 NG/ML (< 0.10)
[2018-11-22] MEDS ORDERED: MORPHINE 4 MG/ML 1ML VIAL/SYRINGE (J2270) IV ONE (01:00)
[2018-11-22] MEDS ORDERED: ONDANSETRON 4MG/2ML VIAL (J2405) IV ONE (01:00)
[2018-11-22] MEDS ORDERED: HumuLIN R (REGULAR) INSULIN (NovoLIN R) **100U/ML** PER UNIT IV ONE (01:00)
--- NOTE | 2018-11-22 02:52 | REP ---
Clinical: Chest pain . Comparison: 06/12/2018 . Findings: The mediastinum and cardiac silhouette are stable and within normal limits for portable technique. Double-lumen dialysis catheter with tip in the SVC. The lung barr demonstrate chronic-appearing changes without acute consolidation, effusion, or pneumothorax. Early pulmonary vascular congestion cannot be excluded. Skeletal structures are intact. Impression: Early pulmonary vascular congestion cannot be excluded. No focal consolidation or obvious effusion. Electronically Signed by Mg Pepe MD 11/22/2018 02:43 A
[2018-11-22 05:34] LABS: CK-MB VALUE MASS 7.6 NG/ML (<3.6); MB/CK RELATIVE INDEX 3.9 (< OR =4); TROPONIN I 2.61 NG/ML (< 0.10)
[2018-11-22] MEDS ORDERED: HEPARIN DRIP 25,000 UNITS in IV 1 EA IV SCH (06:19)
[2018-11-22] MEDS ORDERED: HEPARIN SOD (PORCINE) 5000 UNITS/ML VIAL IV ONE (06:30)
[2018-11-22] MEDS ORDERED: CLOPIDOGREL 300 MG TAB (PLAVIX) PO ONE (06:30)
[2018-11-22 08:25] VITALS: BP 169/78
--- NOTE | 2018-11-22 19:53 | ECGEPIP ---
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
--- NOTE | 2018-11-22 20:00 | ECGEPIP ---
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
== END 2018-11-22 08:25 | disposition short-term general hospital (02) ==
LOC: M ED 23:49
DX: I21.4 Non-ST elevation (NSTEMI) myocardial infarction (principal); N18.6 End stage renal disease; Z99.2 Dependence on renal dialysis; R00.1 Bradycardia, unspecified; I45.10 Unspecified right bundle-branch block; I44.4 Left anterior fascicular block; E11.9 Type 2 diabetes mellitus without complications; I10 Essential (primary) hypertension; E78.5 Hyperlipidemia, unspecified; Z82.49 Family history of ischemic heart disease and other diseases of the circulatory system; Z79.4 Long term (current) use of insulin; Z79.899 Other long term (current) drug therapy; Z88.6 Allergy status to analgesic agent; Z88.8 Allergy status to other drugs, medicaments and biological substances
CPT/HCPCS: 36415; 71045; 80048; 82550; 82553; 84484; 85025; 93005; 93041; 94760; 96374; 96375; 99285; J2270; J2405

== ENCOUNTER → 2018-12-24 | Outpatient (CLI) | payer OTHER ==
--- NOTE | 2018-12-24 14:56 | REP ---
BILATERAL UPPER EXTREMITY DUPLEX DOPPLER ULTRASOUND OF ARTERIES AND VEINS: Real-time ultrasound evaluation and duplex Doppler interrogation of bilateral upper extremity arterial and venous systems is performed for arteriovenous fistula mapping. Prior left arm fistula in the antecubital region is thrombosed. There is occlusion of the right cephalic and median cubital vein. Right basilic vein measures 6 mm at the upper humerus, 7 mm at the lower humerus, 3 mm in the upper forearm and 1 mm in the lower forearm and wrist. Right upper extremity arterial structures demonstrate biphasic and triphasic waveforms with normal peak systolic velocities. Right axillary artery measures 6 mm, brachial artery 5 mm and radial and ulnar arteries 2 mm. On the left, basilic vein measures 5 mm at the upper humerus, 4 mm at the lower humerus and 1 mm throughout the forearm. Left cephalic vein measures 1 mm at the level of the humerus and is not visualized in the forearm. Visualized left upper extremity arterial structures demonstrate normal flow velocities and waveforms, left axillary artery velocity and waveform could not be obtained. Left axillary artery and left brachial artery both measure 5 mm, left radial artery 3 mm and left ulnar artery 2 mm. Electronically Signed by Oh Abdi MD 12/25/2018 10:34 A
== END ==
LOC: M RAD 11:44
PROVIDERS: ATTEND Surgery Vascular Surgery
DX: N18.6 End stage renal disease (principal)

== ENCOUNTER → 2018-12-25 | Outpatient (REF) | payer OTHER ==
[~2018-12-25] MED LIST changes: +CLOP75TA2; +FURO40TA2; +HYDR-3911 PO; +HYDR10TAB; +KEFL250C11 PO; +LOSA100T50; +METO50TA7
[2018-12-25 11:50] LABS: HEMATOCRIT 39.3 % (42.0-52.0); HEMOGLOBIN 12.3 g/dl (13.5-17.5); MEAN CORPUSCULAR HEMOGLOBIN 29.3 pg (27.0-33.0); MEAN CORPUSCULAR HGB CONC 31.3 g/dl (32.0-36.5); MEAN CORPUSCULAR VOLUME 93.6 fl (80.0-96.0); PLATELET COUNT, AUTOMATED 281 10^3/uL (150-450); WHITE BLOOD COUNT 8.7 10^3/uL (4.0-10.0)
[2018-12-25 12:03] LABS: CALCIUM LEVEL 8.3 MG/DL (8.8-10.2); CREATININE FOR GFR 3.69 MG/DL (0.70-1.30); GLOMERULAR FILTRATION RATE 17.6 (>49); POTASSIUM SERUM 4.4 MEQ/L (3.5-5.1)
== END ==
LOC: M LABDRAWC 11:18
PROVIDERS: ATTEND Physician Assistant Surgical
DX: N18.6 End stage renal disease (principal)

== ENCOUNTER 2018-12-30 14:31 | Emergency (ER) | payer OTHER ==
[~2018-12-30] VITALS: Ht 175.3 cm; Wt 77.3 kg
[~2018-12-30 14:31] MED LIST changes: -CLOP75TA2; -FURO40TA2; -HYDR-3911 PO; -HYDR10TAB; -KEFL250C11 PO; -LOSA100T50; -METO50TA7
[2018-12-30] MEDS ORDERED: HYDR10TAB (15:34)
[2018-12-30] MEDS ORDERED: FURO40TA2 (15:34)
[2018-12-30] MEDS ORDERED: METO50TA7 (15:34)
[2018-12-30] MEDS ORDERED: CLOP75TA2 (15:34)
[2018-12-30] MEDS ORDERED: LOSA100T50 (15:34)
[2018-12-30 15:45] LABS: BASO # 0.1 10^3/uL (0.0-0.2); EOS # 0.7 10^3/uL (0.0-0.5); EOS % 8.2 % (0.0-3.0); HEMATOCRIT 34.7 % (42.0-52.0); HEMOGLOBIN 10.8 g/dl (13.5-17.5); LYMPH # 1.1 10^3/uL (1.5-5.0); LYMPH % 12.4 % (24.0-44.0); MEAN CORPUSCULAR HEMOGLOBIN 29.3 pg (27.0-33.0); MEAN CORPUSCULAR HGB CONC 31.1 g/dl (32.0-36.5); MONO # 0.8 10^3/uL (0.0-0.8); MONO % 8.9 % (0.0-5.0); NEUTROPHILS % 69.2 % (36.0-66.0); PLATELET COUNT, AUTOMATED 248 10^3/uL (150-450); RED BLOOD COUNT 3.69 10^6/uL (4.30-6.10); WHITE BLOOD COUNT 8.7 10^3/uL (4.0-10.0)
[2018-12-30 15:50] LABS: APPEARANCE, URINE CLOUDY (CLEAR); BACTERIA, URINE AUTO 1+ (NEGATIVE); BILIRUBIN, URINE AUTO NEGATIVE (NEGATIVE); BLOOD, URINE BLOOD 3+ (NEGATIVE); COLOR, URINE AMBER (YELLOW); GLUCOSE, URINE (UA) AUTO 3+ mg/dL (NEGATIVE); KETONE, URINE AUTO NEGATIVE (NEGATIVE); LEUKOCYTE ESTERASE, URINE AUTO 2+ (NEGATIVE); NITRITE, URINE AUTO NEGATIVE (NEGATIVE); PROTEIN, URINE AUTO 3+ mg/dL (NEGATIVE); RBC, URINE AUTO TNTC /HPF (0-3); SPECIFIC GRAVITY URINE AUTO 1.014 (1.002-1.035); SQUAMOUS EPITHELIAL CELL UR AU 0 /HPF (0-6); UROBILINOGEN, URINE AUTO 0.2 mg/dL (0.0-2.0); WBC, URINE AUTO TNTC /HPF (0-3)
[2018-12-30 16:11] LABS: ALBUMIN 2.9 GM/DL (3.2-5.2); ALT/SGPT 94 U/L (12-78); BILIRUBIN,TOTAL 0.3 MG/DL (0.2-1.0); BLOOD UREA NITROGEN 20 MG/DL (7-18); CALCIUM LEVEL 8.3 MG/DL (8.8-10.2); CARBON DIOXIDE LEVEL 32 MEQ/L (21-32); CHLORIDE LEVEL 105 MEQ/L (98-107); CREATININE FOR GFR 2.44 MG/DL (0.70-1.30); GLOMERULAR FILTRATION RATE 28.4 (>49); GLUCOSE, FASTING 233 MG/DL (70-100); POTASSIUM SERUM 3.9 MEQ/L (3.5-5.1); SODIUM LEVEL 141 MEQ/L (136-145); TOTAL PROTEIN 6.5 GM/DL (6.4-8.2)
[2018-12-30] MEDS ORDERED: hydrALAZINE INJ 20 MG/ML VIAL IV ONE (16:45)
[2018-12-30 16:54] LABS: BILIRUBIN,DIRECT < 0.1 MG/DL (0.0-0.2); CK-MB VALUE MASS 1.8 NG/ML (<3.6); CPK CREATINE PHOSPHOKINASE 62 U/L (39-308); LIPASE 26 U/L (73-393); TROPONIN I < 0.02 NG/ML (< 0.10)
[2018-12-30 17:33] VITALS: BP 148/65
--- NOTE | 2018-12-30 17:40 | REP ---
Chest x-ray: Two views. History: Hypertension. Hematuria. Comparison chest x-ray: November 22, 2018. Findings: Monitoring electrodes overlie the chest. In the interval since the November 22, 2018 prior study, the patient has undergone median sternotomy. There is moderate elevation of the left hemidiaphragm and a left pleural effusion is seen blunting the posterior and lateral pleural angles. There is moderate cardiac enlargement. A right-sided tunnel central venous catheter remains in place with its tip in the expected location of the superior vena cava. The right lung is essentially clear with very slight blunting of the posterior pleural angle. Impression: Interval median sternotomy. Elevated left hemidiaphragm. Subpulmonic mild to moderate left pleural effusion. Cardiomegaly. Tunneled central venous catheter. Very small right pleural effusion. Electronically Signed by Carmelo Salguero MD 12/31/2018 10:45 A
[2018-12-30 18:00] LABS: INR 1.18; PROTHROMBIN TIME 14.7 SECONDS (11.8-14.0)
[2018-12-30] MEDS ORDERED: KEFL250C11 PO (18:53)
[2018-12-30] MEDS ORDERED: HYDR-3911 PO (18:53)
[2018-12-30] MEDS ORDERED: CEPHALEXIN 250 MG CAP PO ONE (19:00)
[2018-12-30 19:32] VITALS: BP 153/67
--- NOTE | 2018-12-30 19:59 | ECGEPIP ---
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
--- NOTE | 2019-01-06 13:06 | ED PDOC ---
Post-Departure Follow-Up dr mendiola and dr toribio faxed formal report of cxr for fu Buzz Morales MD Jan 06, 2019 13:06
== END 2018-12-30 19:34 | disposition home or self-care (01) ==
LOC: M ED 14:31
DX: D64.9 Anemia, unspecified (principal); I16.0 Hypertensive urgency; N39.0 Urinary tract infection, site not specified; N18.6 End stage renal disease; I45.10 Unspecified right bundle-branch block; J90 Pleural effusion, not elsewhere classified; Z99.2 Dependence on renal dialysis; I25.2 Old myocardial infarction; E11.9 Type 2 diabetes mellitus without complications; J45.909 Unspecified asthma, uncomplicated; E78.5 Hyperlipidemia, unspecified; E11.40 Type 2 diabetes mellitus with diabetic neuropathy, unspecified; F41.9 Anxiety disorder, unspecified; E04.1 Nontoxic single thyroid nodule; Z95.1 Presence of aortocoronary bypass graft; I51.7 Cardiomegaly; Z45.2 Encounter for adjustment and management of vascular access device; Z79.84 Long term (current) use of oral hypoglycemic drugs; Z79.899 Other long term (current) drug therapy; Z88.6 Allergy status to analgesic agent; Z88.8 Allergy status to other drugs, medicaments and biological substances

== ENCOUNTER 2019-01-20 02:45 | Emergency (ER) | payer OTHER ==
[~2019-01-20] VITALS: Ht 175.3 cm; Wt 81.8 kg
[~2019-01-20 02:45] MED LIST changes: +CLOP75TA2; +FURO40TA2; +HYDR-3911 PO; +HYDR10TAB; +KEFL250C11 PO; +LOSA100T50; +METO50TA7
[2019-01-20 03:19] LABS: BASO # 0.1 10^3/uL (0.0-0.2); BASO % 0.9 % (0.0-1.0); EOS % 10.3 % (0.0-3.0); HEMOGLOBIN 11.9 g/dl (13.5-17.5); LYMPH # 1.3 10^3/uL (1.5-5.0); LYMPH % 13.1 % (24.0-44.0); MEAN CORPUSCULAR HEMOGLOBIN 28.9 pg (27.0-33.0); MEAN CORPUSCULAR HGB CONC 31.3 g/dl (32.0-36.5); MEAN CORPUSCULAR VOLUME 92.2 fl (80.0-96.0); MONO # 0.8 10^3/uL (0.0-0.8); MONO % 7.9 % (0.0-5.0); NEUTROPHILS # 6.6 10^3/uL (1.5-8.5); NEUTROPHILS % 67.5 % (36.0-66.0); PLATELET COUNT, AUTOMATED 288 10^3/uL (150-450); RED BLOOD COUNT 4.12 10^6/uL (4.30-6.10); WHITE BLOOD COUNT 9.7 10^3/uL (4.0-10.0)
[2019-01-20 03:31] LABS: INR 1.2; PROTHROMBIN TIME 14.9 SECONDS (11.8-14.0)
[2019-01-20 03:32] LABS: PARTIAL THROMBOPLASTIN TIME 29.4 SECONDS (25.0-38.4)
[2019-01-20 03:55] LABS: BLOOD UREA NITROGEN 53 MG/DL (7-18); CALCIUM LEVEL 7.7 MG/DL (8.8-10.2); CARBON DIOXIDE LEVEL 25 MEQ/L (21-32); CHLORIDE LEVEL 100 MEQ/L (98-107); CK-MB VALUE MASS 4.3 NG/ML (<3.6); CPK CREATINE PHOSPHOKINASE 125 U/L (39-308); CREATININE FOR GFR 4.78 MG/DL (0.70-1.30); GLOMERULAR FILTRATION RATE 13.1 (>49); GLUCOSE, FASTING 257 MG/DL (70-100); MB/CK RELATIVE INDEX 3.44 (< OR =4); NT-PRO BNP 30731 PG/ML (<125); POTASSIUM SERUM 4.2 MEQ/L (3.5-5.1); SODIUM LEVEL 138 MEQ/L (136-145); TROPONIN I < 0.02 NG/ML (< 0.10)
[2019-01-20] MEDS ORDERED: FUROSEMIDE 100 MG/10 ML VIAL (J1940) IV ONE (04:15)
[2019-01-20 04:22] VITALS: BP 188/81
--- NOTE | 2019-01-20 08:04 | REP ---
Portable chest x-ray: Single view. History: Chest pain. Comparison study: December 30 1018. Findings: Monitoring electrodes are seen. A right-sided tunnel catheter is noted in place in the expected location of the superior vena cava. There is elevation left hemidiaphragm and blunting of the left lateral pleural angle is seen. These factors obscure left heart border but moderate to marked cardiomegaly appears to be present unchanged. Pulmonary vasculature is somewhat cephalized. Mildly increased interstitial markings are seen suggesting a mild interstitial edema. No right pleural effusion is evident. Median sternotomy wires are seen. Impression: Cardiomegaly vascular congestion and mild diffuse interstitial edema pattern. Blunting of the left lateral pleural angle. CHF pattern. Electronically Signed by Carmelo Salguero MD 01/20/2019 08:46 A
--- NOTE | 2019-01-21 21:55 | ECGEPIP ---
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
== END 2019-01-20 05:02 | disposition short-term general hospital (02) ==
LOC: M ED 02:45
DX: I45.10 Unspecified right bundle-branch block (principal); I44.4 Left anterior fascicular block; J90 Pleural effusion, not elsewhere classified; I50.9 Heart failure, unspecified; N18.6 End stage renal disease; Z99.2 Dependence on renal dialysis; I25.10 Atherosclerotic heart disease of native coronary artery without angina pectoris; I25.2 Old myocardial infarction; I10 Essential (primary) hypertension; J44.9 Chronic obstructive pulmonary disease, unspecified; Z95.1 Presence of aortocoronary bypass graft; Z82.49 Family history of ischemic heart disease and other diseases of the circulatory system; I51.7 Cardiomegaly; Z79.899 Other long term (current) drug therapy; Z88.6 Allergy status to analgesic agent; Z88.8 Allergy status to other drugs, medicaments and biological substances
CPT/HCPCS: 71045; 80048; 82550; 82553; 83880; 84484; 85025; 85610; 85730; 93005; 93041; 94760; 96374; 99285; J1940

== ENCOUNTER → 2019-02-03 | Outpatient (REF) | payer OTHER | LOC: M LAB REF 17:04 | PROVIDERS: ATTEND Internal Medicine Nephrology | DX: N39.0 Urinary tract infection, site not specified (principal) ==

== ENCOUNTER → 2019-02-14 | Outpatient (REF) | payer OTHER ==
[2019-02-14 12:35] LABS: HEMOGLOBIN A1c 8.1 %
[2019-02-14 12:41] LABS: ALBUMIN 3.4 GM/DL (3.2-5.2); BILIRUBIN,TOTAL 0.4 MG/DL (0.2-1.0); CALCIUM LEVEL 8.4 MG/DL (8.8-10.2); CREATININE FOR GFR 4.11 MG/DL (0.70-1.30); GLOMERULAR FILTRATION RATE 15.6 (>49); POTASSIUM SERUM 5.7 MEQ/L (3.5-5.1); TOTAL PROTEIN 7.3 GM/DL (6.4-8.2)
--- NOTE | 2019-02-18 18:55 | HPE ---
DATE OF ADMISSION: 03/07/2019 CHIEF COMPLAINT: Dialysis access. HISTORY OF PRESENT ILLNESS: This is a very pleasant 68-year-old gentleman with end-stage renal disease, currently dialyzing with a right internal jugular (IJ) [id number]-[id number]-Fqkhnpaj. Dr. Landry had placed a left upper extremity brachiocephalic arteriovenous (AV) access that thrombosed. He returns now for options for new AV access. I reviewed his vein mapping, and the patient has thrombosis of his left brachiocephalic AV access and his right cephalic vein. His left basilic vein is decent size, but the right basilic vein is better. It measures 5.6 mm diameter in the upper arm, 6.6 mm just proximal to the antecubital, and 3.4 mm just distal to the antecubital. I think this will be suitable for AV fistula creation, and we discussed the risks, benefits, and alternatives, and the patient is agreeable. We also discussed that he will later need transposition of the vein once it is matured. He is agreeable to this plan. He has an appointment with Dr. Vasques in [place], secondary to some recent problems with heart failure after a 4-vessel coronary artery bypass graft (CABG). He sees Dr. Fountain here in [place] but was told he needed to come back to [place] due to the seriousness of his cardiac issues. We will ask for clearance from cardiology prior to proceeding. We will need minimal anesthesia with a right upper extremity scalene nerve block and sedation for the first procedure with the AV anastomosis, but later for the transposition we would need additional anesthesia. Hopefully by that time the patient's cardiopulmonary status will have improved. He can continue to dialyze with his Perm-A-Cath for now. MEDICATIONS: - albuterol nebulizers four time a day - atorvastatin 40 mg daily - bumetanide 2 mg daily - Keflex 250 mg twice a day - cetirizine 10 mg daily - Plavix 75 mg daily - Flonase 50 mcg two sprays daily - folic acid 1 mg daily - Lasix 40 mg two tablets nightly - gabapentin 300 mg twice a day - Humalog insulin 100 units with each meal - hydralazine 50 mg every 8 hours - isosorbide mononitrate ER 30 mg daily on non-dialysis days - Lantus 100 units daily - losartan 100 mg daily - Lopressor 50 mg twice a day - Symbicort two puffs daily - Velphoro 500 mg three times a day with meals - Ventolin two puffs four time a day as needed - vitamin D 2000 units once a week ALLERGIES: ASPIRIN and NSAIDS. PAST MEDICAL HISTORY: 1. Arthritis. 2. Hypertension. 3. Insulin-dependent diabetes. 4. Asthma. 5. Kidney disease. 6. Dialysis. 7. High cholesterol. 8. Renal failure. 9. Heart disease. 10. History of myocardial infarction (MS). 11. Sleep apnea. PAST SURGICAL HISTORY: 1. Septoplasty. 2. Inguinal hernia repair. 3. Knee arthroscopy. 4. Dialysis catheter placement. 5. Failed left arteriovenous (AV) fistula [place] [address] Landry. 6. Colonoscopy. 7. Quadruple bypass November 2018. 8. Multiple cardiac catheterizations. FAMILY HISTORY: Prostate cancer, emphysema, diabetes, heart disease. SOCIAL HISTORY: Patient denies tobacco use, alcohol use, or illicit drug use. REVIEW OF SYSTEMS: CONSTITUTIONAL: Denies fevers, chills, weight loss, weight gain. EYES: Denies new vision changes. EARS, NOSE, MOUTH, AND THROAT: Denies hearing loss, congestion, or dysphagia. CARDIOVASCULAR: Denies chest pain and palpitations. RESPIRATORY: Reports cough, effusions, shortness of breath but denies hemoptysis. GASTROINTESTINAL: Denies abdominal pain, constipation, diarrhea, nausea, vomiting. MUSCULOSKELETAL: Denies myalgia pain and trouble walking. SKIN: Denies skin cancer, rash, and wound. NEUROLOGIC: Denies focal deficits, headaches, and seizures. PSYCHIATRIC: Reports depression but denies anxiety. ENDOCRINE: Reports diabetes but denies hyperthyroidism and hypothyroidism. HEMATOLOGIC/LYMPHATIC: Denies anemia and excessive bruising. PHYSICAL EXAMINATION: The patient is afebrile. Vital signs are stable, but he is hypertensive at 192/82. CONSTITUTIONAL: Appears medically stable with no signs of distress. HEAD AND FACE; Normal on inspection. EARS, NOSE, MOUTH, AND THROAT: Tympanic membranes are intact. External nose is within normal limits. NECK: Supple. No carotid bruits present. RESPIRATORY: No wheezing. Clear to auscultation bilaterally. CARDIOVASCULAR: Regular rate and rhythm. ABDOMEN: Bowel sounds positive. Abdomen soft, nontender, nondistended. LYMPHATIC: No palpable or visible regional lymphadenopathy. MUSCULOSKELETAL: Gait steady. Distal pulses 2+ dorsalis pedis (DP) and posterior tibialis (PT). Radial pulses 2+ bilaterally. Left upper extremity brachiocephalic AV fistula is thrombosed. No thrills or bruit present there. SKIN: No rashes or lesions. NEUROLOGIC: Alert and oriented times three. Moves all extremities equally. No focal neurologic deficits noted. PSYCHIATRIC: Pleasant and cooperative. IMAGING: Vein mapping was reviewed with the patient today. Please see history of present illness (HPI) for relevant interpretation. ASSESSMENT AND PLAN: A Very pleasant 68-year-old gentleman requiring new access for dialysis. Plan for right upper extremity brachiobasilic AV fistula creation. The patient will need cardiology clearance due to recent diagnosis of heart failure status post 4-vessel CABG. Ideally we would like the patient to hold his Plavix for 3 days prior to surgery, but if this is not safe from a cardiac standpoint, he can continue it up to and through the surgery. For the initial surgery with AV fistula creation, it is not as imperative to hold the Plavix, but when we do the transposition, it will be difficult to prevent significant bruising and hematoma formation postoperative if Plavix is continued. Having said that, I am not opposed to doing both surgeries on Plavix if that is what is safest for the patient from a cardiac standpoint. We appreciate the opportunity to participate in the care of this patient.
== END ==
LOC: M SFHCCLAY 07:01
PROVIDERS: ATTEND Family Medicine
DX: E11.49 Type 2 diabetes mellitus with other diabetic neurological complication (principal)

== ENCOUNTER → 2019-02-21 | Outpatient (REF) | payer OTHER ==
[~2019-02-21] MED LIST changes: +CALC1CAP31 PO; +COLA100C5 PO; +FLON1SPR NARES; +FOLI400T PO; +ISOS30TAB PO; -LOSA100T50; +LOSA100T50 PO; -METO50TA7; +METO50TA7 PO; +METO5TA PO; +MIRC75IN IJ; +NEUR300C PO; +VENO20IN5 IV; +VITAD400CA PO; +ZYRTTAB8 PO; +insulin
== END ==
LOC: M LAB REF 11:41
PROVIDERS: ATTEND Internal Medicine Nephrology
DX: N39.0 Urinary tract infection, site not specified (principal)

== ENCOUNTER 2019-03-05 11:25 | Outpatient (RCR) | payer OTHER ==
--- NOTE | 2019-02-19 09:33 | CARECAPL ---
Assessment Account #s: Initial Assessment General Diagnoses: CABG Date of event: Nov 29, 2018 Physician: Peyman Fountain MD Allergies: Coded Allergies: NSAIDS (Non-Steroidal Anti-Inflamma (Verified Allergy, Severe, ANAPHYLAXIS, 01/20/19) aspirin (Verified Allergy, Severe, ANAPHYLAXIS, 01/20/19) Risk strat for cardiac event: High Exercise Assessment: Initial Assessment Stages of change: Pre-contemplation Exercise Prescription Plan Educate on cardiovascular disease and increase endurance, strength and flexibility through a monitored exercise program. Modalities initiated: Nustep (will add resistance of 1 for 6 minutes), Arm Aerometer (will add resistance of 1 for 5 minutes), Dumbells (will add 1lbs), Recumbent Bike (will add resistance of 1 for 3 minutes) Frequency: 3 Duration (Minutes) 30 - 60 minutes total exercise a day. 15 - 20 work intervals in minutes. PRN rest intervals in minutes. Functional Capacity Goal Sustained Metabolic Equivalent of a task (MET) goal of 2.0-2.5 for 15-20 minutes. Intensity: 3-Moderate Progression (METS) Increase by: 0.5 METS every: 3-5 sessions Angina with ex: No Target Heart Rate Rest +35-40 per beta heike therapy. Resistance Training: Yes Weight (pounds): 1 Reps: 6-8 Medications Scheduled Atorvastatin Calcium (Atorvastatin Calcium), 40 MG PO QPM, (Reported) Budesonide/Formoterol (Symbicort 160-4.5 Mcg Inhaler), 2 PUFF INH BID, (Reported) Bumetanide (Bumetanide), 2 MG PO BID, (Reported) Calcitriol (Calcitriol), 0.75 MCG PO 3XW, (Reported) Cetirizine HCl/Pseudoephedrine (Zyrtec-D Tablet), 1 TAB PO DAILY, (Reported) Fluticasone Propionate (Flonase Allergy Relief), 2 SPRAY NARES DAILY, (Reported) Folic Acid (Folic Acid), 1 TAB PO DAILY, (Reported) Gabapentin (Gabapentin), 300 MG PO QPM, (Reported) Gabapentin (Neurontin), 1 CAP PO DAILY, (Reported) Hydralazine HCl (Hydralazine HCl), 1 TAB PO Q8H Losartan Potassium (Losartan Potassium), 50 MG PO BID, (Reported) Methoxy Peg-Epoetin Beta (Mircera), 75 MCG IJ MTHLY, (Reported) Metolazone (Metolazone), 5 MG PO DAILY, (Reported) Metoprolol Tartrate (Metoprolol Tartrate), 25 MG PO BID, (Reported) Sucroferric Oxyhydroxide (Velphoro), 500 MG PO TID, (Reported) Sucroferric Oxyhydroxide (Velphoro), 500 MG PO TID, (Reported) Scheduled PRN Albuterol Sulf (Albuterol Sulfate), 2.5 MG INH TID PRN for SHORTNESS OF BREATH, (Reported) Albuterol Sulfate (Ventolin Hfa), 2 PUFF INH Q4H PRN for SHORTNESS OF BREATH, (Reported) Miscellaneous Medications Clopidogrel Bisulfate (Clopidogrel), (Reported) Hydralazine HCl (Hydralazine HCl), (Reported) Iron Sucrose Complex (Venofer), 20 MG IV, (Reported) Vitamin D (Vitamin D3), 1.25 MCG PO, (Reported) [insulin], (Reported) Discontinued Medications Amlodipine Besylate (Amlodipine Besylate), 5 MG PO DAILY, (Reported) Discontinued Reason: Pt states not taking Cephalexin (Keflex), 1 CAP PO BID Discontinued Reason: Pt states not taking Furosemide (Furosemide), (Reported) Discontinued Reason: Pt states not taking Education Goals Met: No Target Goals Individual exercise Rx (1) BP 140/90 or 130/80 if DM or CKD (1) Aerobic active 30+min 5 days per week (1) Nutrition Date: Feb 19, 2019 Assessment: Initial Assessment Stages of change: Pre-contemplation Lipids Total Cholesterol (112), High Density Lipids (HDL) (58), Low Density Lipids (LDL) (46), Triglycerides (60), Duration (2.074) Lipid- med/supplement atorvastatin 40mg daily Diabetes Diabetes: Yes HbA1c (%): 8.1 Diabetes medication Novolog 4 times a day Monitor Blood Sugar at home: Yes Frequency with meals and bedtime Weight Management Weight (lbs): 179.2 Height (inches): 69 Waist Circumference (Inches): 42 BMI: 26.4 Special Diet: other (renal diet and 50 oz fluid restriction) Vitamin/Supplements: Multivitamin, Vitamin D, Other (folic acid and iron) Alcohol: none Diet Access Tool: Rate your plate Score: 51 Referral to Diabetes education: Yes (discussed with client about going diabetic counseling at the [facility].) Referral to lipid clinic: No Referral to weight mangement p: No Education Goals Met: No Target goal LDL-C<100 if triglycerides are >200 Non-HDL-C should be <130 (1) LDL-C<70 for high risk patients (4) HbA1c<7% (1) BMI<25 Waist cir<40in M/<35in F (1) Education Date: Feb 19, 2019 Assessment: Initial Assessment Learning Barriers: ready (patient is noncompliant with diabetes medication) Knowledge Test Score: 8 Stages of change: Pre-contemplation Family Support: Yes Tobacco use: No Quit: never smoked Education Goals Met: No Target Goals Complete cessation of tobacco use (1). Psychosocial Date: Feb 19, 2019 Assessment: Initial Assessment Psych Test (Initial/Discharge) Tool Used: CESD Score: 1 Stages of change: Pre-contemplation Intervention Physician Consult: No Physician Referral: No Psychotropic medication None Education Goals Met: No Target Goal Assess presence or absence of depression using a valid screening tool (1). Maximize coping skills (2). Positive support system (2). Patient/Program Goal Preventative Medication: Yes Clopidogrel, Yes Beta blockade, Yes Statin/OTR lipid Lowering Fall Risk Assess: Yes (yes patient is a fall risk history of fall and incurred a fall while here cardiac rehabilitation due to not having his walker.) Assisstive Device: walker Provider Assessment Provider Assessment: Proceed with rehab Yaquelin Garza RN Feb 19, 2019 09:33
[2019-03-07] MEDS ORDERED: OXYC1TAB23 PO (09:17)
== END 2019-03-07 ==
LOC: M CR 11:25
PROVIDERS: ATTEND Internal Medicine Cardiovascular Disease
DX: Z95.1 Presence of aortocoronary bypass graft (principal)

== ENCOUNTER 2019-03-07 05:51 | Day surgery (SDC) | payer OTHER ==
[~2019-03-07] VITALS: Ht 175.3 cm; Wt 78.5 kg
[2019-03-07] MEDS ORDERED: ROPIvacaine 0.5% 30 ML INJECTION (J2795 PER 1MG) ONE (05:52)
[2019-03-07] MEDS ORDERED: LIDOCAINE 1% MDV 20ML VIAL ONE (05:52)
[2019-03-07] MEDS ORDERED: ceFAZolin SOD 2 GM in IV 1 EA IV ONE (06:00)
[2019-03-07] MEDS ORDERED: MIDAZOLAM INJ 2 MG/2 ML VIAL (J2250) IV SCH (06:00)
[2019-03-07] MEDS ORDERED: fentaNYL 100 MCG/2 ML INJECTION (J3010) IV SCH (06:00)
[2019-03-07] MEDS ORDERED: D5W/0.2% SODIUM CHLORIDE 1,000 ML IV ONE (06:00)
[2019-03-07 06:35] LABS: HEMATOCRIT 42.8 % (42.0-52.0); MEAN CORPUSCULAR HEMOGLOBIN 27.7 pg (27.0-33.0); MEAN CORPUSCULAR HGB CONC 30.4 g/dl (32.0-36.5); MEAN CORPUSCULAR VOLUME 91.3 fl (80.0-96.0); PLATELET COUNT, AUTOMATED 197 10^3/uL (150-450); RED BLOOD COUNT 4.69 10^6/uL (4.30-6.10); WHITE BLOOD COUNT 7.8 10^3/uL (4.0-10.0)
[2019-03-07] MEDS ORDERED: LIDOCAINE 1% SDV INJ 30 ML VIAL As Ordered ONE (06:50)
[2019-03-07] MEDS ORDERED: ISOVUE-300 61% 50ML VIAL (Q9967) As Ordered ONE (06:50)
[2019-03-07] MEDS ORDERED: HEPARIN SOD (PORCINE) 5000 UNITS/ML VIAL (J1644 PER 1000UNITS) As Ordered ONE (06:51)
[2019-03-07] MEDS ORDERED: fentaNYL 100 MCG/2 ML INJECTION (J3010) As Ordered ONE ×2 (06:55→08:21)
[2019-03-07] MEDS ORDERED: MIDAZOLAM INJ 2 MG/2 ML VIAL (J2250) As Ordered ONE ×2 (06:55→08:21)
[2019-03-07] MEDS ORDERED: propofoL 200 MG/20 ML VIAL As Ordered ONE (08:21)
[2019-03-07] MEDS ORDERED: DEXTROSE 50% 50 ML VIAL As Ordered ONE (08:46)
[2019-03-07] MEDS ORDERED: OXYC1TAB23 PO (09:17)
--- NOTE | 2019-03-07 09:24 | ROOPDOC ---
[facility] Report Of Operation Report of Operation DATE OF PROCEDURE: 03/07/19 PREPROCEDURE DIAGNOSES: End-stage renal disease with need for dialysis access. POSTPROCEDURE DIAGNOSES: Same. PROCEDURE: Right brachial basilic AV fistula creation. SURGEON: Marco Munoz MD ANESTHESIA: Monitored anesthesia care, right scalene nerve block, local anest hesia. INDICATION FOR PROCEDURE: This is a very pleasant 68-year-old patient with end- stage renal disease and need for dialysis access. Vein mapping was reviewed and the patient appeared to have a suitable right basilic vein on vein mapping for AV fistula creation. Risks benefits and targeted objectives to a right brachial basilic AV fistula creation were explained to the patient and he was agreeable to proceed. Informed consent was obtained. REPORT OF OPERATION: A right scalene nerve block was placed by our anesthesia colleagues in preop holding and the patient was then taken to the operating room in stable condition. Monitored anesthesia care and antibiotics were administered without comp location. His right upper extremity was prepped and draped in a st erile fashion. A timeout was performed. Local anesthesia was a fender mechanic to the skin and subcutaneous tissue 1 cm distal to the antecubital crease and a transverse incision was made in this area over the brachial artery pulse. This was carried down through the subcutaneous tissues Bovie cautery and the basilic vein was identified. It was skeletonized proximally and distally within the incision. Branches were suture ligated and divided. The vein was a bit scarred in the antecubital region, but appeared widely patent more proximally. I am a little bit worried about this inflow area towards the AV anastomosis, but hopefully there will be enough elasticity in the vein to allow for maturation. A branch point at the vein was transected after tying off distal ends and pot scissor was used to connect the branches to create a larger patch for anastomosis. We passed sequential dilators through the vein, 3 mm, 3.5 mm, and 44 mm. We flushed with heparinized saline and placed the bulldog clamp. We then dissected down to the brachial artery and this was skeletonized proximally and distally within the incision. Vesseloops were placed and secured and a 5 mm arteriotomy was made. The vein was anastomosis today artery and an end-to-side fashion with 6-0 Prolene running suture. Before the final sutures were placed, we flushed inflow and outflow artery and the vein and irrigated with heparinized saline. We then placed her final sutures and restorative flow to the vein and the inflow artery, and lastly to the hand. Good hemostasis was noted. There is a good thrill and the basilic vein. Doppler confirmed good flow through the vein all the way up the arm and there was a strong biphasic signal at the hand and the palmar arch. The hand was warm and well-perfused. The wound was irrigated with normal saline and the deep tissues were approximated with a running Vicryl suture and the deep dermal layer was approximated with interrupted Vicryl suture and the skin was closed with running 4-0 Monocryl suture. The wound was cleaned and dried. Mastisol and Steri-Strips replace the length of the wound and a 4 x 4 and Tegaderm was placed over the Steri-Strips as a final dressing. A sling was placed in the right upper extremity to protect it and the patient was taken to recovery in stable condition. ESTIMATED BLOOD LOSS: Approximately 5 mL. COMPLICATIONS: None. PLAN: Continue the sling right upper extremity until motor and sensory function returned, then okay to discontinue the sling. Try to leave the Steri-Strips intact 5-7 days to help with healing. Okay to shower to 24 hours. No strenuous exercise or heavy lifting for 1 week or until incision is completely healed. Follow-up in clinic in a week to check incision and fistula flow. MARCO MUNOZ MD Mar 07, 2019 09:24
[2019-03-07 11:35] VITALS: BP 121/60
== END 2019-03-07 11:40 | disposition home or self-care (01) ==
LOC: M SDC 05:51
PROVIDERS: ATTEND Surgery Vascular Surgery
DX: N18.6 End stage renal disease (principal); I13.2 Hypertensive heart and chronic kidney disease with heart failure and with stage 5 chronic kidney disease, or end stage renal disease; E10.22 Type 1 diabetes mellitus with diabetic chronic kidney disease; E10.40 Type 1 diabetes mellitus with diabetic neuropathy, unspecified; E04.1 Nontoxic single thyroid nodule; I25.10 Atherosclerotic heart disease of native coronary artery without angina pectoris; I25.2 Old myocardial infarction; I50.9 Heart failure, unspecified; J45.909 Unspecified asthma, uncomplicated; E78.00 Pure hypercholesterolemia, unspecified; F41.9 Anxiety disorder, unspecified; G47.30 Sleep apnea, unspecified; J90 Pleural effusion, not elsewhere classified; J44.9 Chronic obstructive pulmonary disease, unspecified; M12.9 Arthropathy, unspecified; Z79.4 Long term (current) use of insulin; Z79.899 Other long term (current) drug therapy; Z85.46 Personal history of malignant neoplasm of prostate; Z88.6 Allergy status to analgesic agent; Z87.440 Personal history of urinary (tract) infections; Z95.5 Presence of coronary angioplasty implant and graft
CPT/HCPCS: 36415; 36821; 64450; 84132; 85027; J0690; J1644; J2250; J2795; J3010

== ENCOUNTER → 2019-03-10 | Outpatient (REF) | payer OTHER ==
[~2019-03-10] MED LIST changes: +OXYC1TAB23 PO
[2019-03-10 13:38] LABS: APPEARANCE, URINE CLOUDY (CLEAR); BACTERIA, URINE AUTO 1+ (NEGATIVE); BILIRUBIN, URINE AUTO NEGATIVE (NEGATIVE); BLOOD, URINE BLOOD 1+ (NEGATIVE); COLOR, URINE YELLOW (YELLOW); GLUCOSE, URINE (UA) AUTO 1+ mg/dL (NEGATIVE); KETONE, URINE AUTO NEGATIVE (NEGATIVE); LEUKOCYTE ESTERASE, URINE AUTO 3+ (NEGATIVE); MUCUS, URINE SMALL (NEGATIVE); NITRITE, URINE AUTO NEGATIVE (NEGATIVE); PROTEIN, URINE AUTO 2+ mg/dL (NEGATIVE); RBC, URINE AUTO 10 /HPF (0-3); SPECIFIC GRAVITY URINE AUTO 1.011 (1.002-1.035); SQUAMOUS EPITHELIAL CELL UR AU 0 /HPF (0-6); UROBILINOGEN, URINE AUTO 0.2 mg/dL (0.0-2.0); WBC, URINE AUTO TNTC /HPF (0-3)
== END ==
LOC: M SFHCPLAZ 13:11
PROVIDERS: ATTEND Internal Medicine Infectious Disease
DX: A49.8 Other bacterial infections of unspecified site (principal)

== ENCOUNTER → 2019-03-11 | Outpatient (CLI) | payer OTHER ==
[~2019-03-11] MED LIST changes: -AMLO-151 PO; +AMLO-180 PO; +CALC1CAP PO
--- NOTE | 2019-03-11 14:27 | REPPI ---
Prostate sonography: History: Elevated PSA Sonographic findings: Trans rectal prostate sonography demonstrates unremarkable seminal vesicles. Prostate gland is heterogeneously enlarged with calcifications and cystic changes noted. Glandular dimensions are measured at 4.1 x 2.7 x 5.0 cm with a calculated glandular volume of 29.3 ml. There is a hypoechoic nodule in the right mid apex 8 mm in diameter. Transrectal sonographic guidance is provided to Dr. Cardozo who performed trans rectal ultrasound guided needle biopsy procedure . Electronically Signed by Carmelo Salguero MD 03/11/2019 02:19 P
== END ==
LOC: M SMT PRO 11:31
PROVIDERS: ATTEND Urology
DX: C61 Malignant neoplasm of prostate (principal)
CPT/HCPCS: 76872; 76942; G0416

== ENCOUNTER 2019-03-22 12:26 | Emergency (ER) | payer MEDICARE, OTHER ==
[~2019-03-22] VITALS: Ht 175.3 cm; Wt 77.3 kg
[~2019-03-22 12:26] MED LIST changes: -CALC1CAP PO
[2019-03-22] MEDS ORDERED: CALC1CAP PO (12:58)
[2019-03-22 14:30] LABS: BASO # 0.1 10^3/uL (0.0-0.2); EOS # 1.3 10^3/uL (0.0-0.5); EOS % 16.3 % (0.0-3.0); HEMATOCRIT 42.9 % (42.0-52.0); HEMOGLOBIN 13.8 g/dl (13.5-17.5); LYMPH # 1.4 10^3/uL (1.5-5.0); LYMPH % 17.9 % (24.0-44.0); MEAN CORPUSCULAR HEMOGLOBIN 28.3 pg (27.0-33.0); MEAN CORPUSCULAR HGB CONC 32.2 g/dl (32.0-36.5); MEAN CORPUSCULAR VOLUME 88.1 fl (80.0-96.0); MONO # 0.6 10^3/uL (0.0-0.8); MONO % 8.4 % (0.0-5.0); NEUTROPHILS # 4.3 10^3/uL (1.5-8.5); NEUTROPHILS % 56.3 % (36.0-66.0); PLATELET COUNT, AUTOMATED 215 10^3/uL (150-450); RED BLOOD COUNT 4.87 10^6/uL (4.30-6.10); WHITE BLOOD COUNT 7.7 10^3/uL (4.0-10.0)
--- NOTE | 2019-03-22 14:39 | REP ---
Clinical: Altered mental status. Comparison: 04/02/2013 . Findings: Age-related atrophy and microvascular ischemic changes are appreciated. The ventricles and sulci are symmetric. Abdi-white differentiation is maintained. There is no evidence for acute intracranial hemorrhage, mass/mass effect, pathology or infarction. No extra-axial fluid collection. Calvarium is intact. Near complete opacification of the visualized sinuses suggesting sinusitis. Mastoid air cells are clear. Impression: Age related atrophy and microvascular ischemic changes. No acute intracranial hemorrhage, infarction, or mass/mass effect. Acute/chronic sinusitis. Electronically Signed by Mg Pepe MD 03/22/2019 02:31 P
[2019-03-22 14:50] LABS: INR 1.1; PROTHROMBIN TIME 13.9 SECONDS (11.8-14.0)
[2019-03-22 14:51] LABS: PARTIAL THROMBOPLASTIN TIME 29.7 SECONDS (25.0-38.4)
[2019-03-22 14:52] LABS: ALBUMIN 3.6 GM/DL (3.2-5.2); ALT/SGPT 103 U/L (12-78); BILIRUBIN,DIRECT 0.1 MG/DL (0.0-0.2); BILIRUBIN,TOTAL 0.4 MG/DL (0.2-1.0); BLOOD UREA NITROGEN 20 MG/DL (7-18); CALCIUM LEVEL 8.2 MG/DL (8.8-10.2); CARBON DIOXIDE LEVEL 34 MEQ/L (21-32); CHLORIDE LEVEL 100 MEQ/L (98-107); CK-MB VALUE MASS 2.4 NG/ML (<3.6); CPK CREATINE PHOSPHOKINASE 83 U/L (39-308); CREATININE FOR GFR 3.38 MG/DL (0.70-1.30); GLOMERULAR FILTRATION RATE 19.5 (>49); GLUCOSE, FASTING 83 MG/DL (70-100); MB/CK RELATIVE INDEX 2.89 (< OR =4); POTASSIUM SERUM 3.4 MEQ/L (3.5-5.1); SODIUM LEVEL 139 MEQ/L (136-145); TOTAL PROTEIN 7.9 GM/DL (6.4-8.2); TROPONIN I < 0.02 NG/ML (< 0.10)
[2019-03-22 15:16] VITALS: BP 178/80
--- NOTE | 2019-03-23 05:41 | ECGEPIP ---
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
== END 2019-03-22 15:52 | disposition home or self-care (01) ==
LOC: EDBD 12:26 → M ED 12:26
DX: R40.4 Transient alteration of awareness (principal); N18.6 End stage renal disease; N39.0 Urinary tract infection, site not specified; R00.1 Bradycardia, unspecified; I45.10 Unspecified right bundle-branch block; I44.4 Left anterior fascicular block; I49.8 Other specified cardiac arrhythmias; Z99.2 Dependence on renal dialysis; I25.10 Atherosclerotic heart disease of native coronary artery without angina pectoris; E11.9 Type 2 diabetes mellitus without complications; I12.0 Hypertensive chronic kidney disease with stage 5 chronic kidney disease or end stage renal disease; J44.9 Chronic obstructive pulmonary disease, unspecified; Z95.1 Presence of aortocoronary bypass graft; J01.90 Acute sinusitis, unspecified; Z79.4 Long term (current) use of insulin; Z79.899 Other long term (current) drug therapy; Z88.6 Allergy status to analgesic agent; Z88.8 Allergy status to other drugs, medicaments and biological substances

== ENCOUNTER → 2019-03-28 | Outpatient (CLI) | payer OTHER, MEDICARE ==
[~2019-03-28] MED LIST changes: +CALC1CAP PO; -CLOP75TA2; +CLOP75TA2 PO; +FOLI1TAB11 PO; +ISOS30TA4 PO; +LIDO2.5C15 TOP; +LIDOCAINE 1% MDV 20ML VIAL As Ordered ONE; +METO25TA4 PO; -MIRC75IN IJ; +MIRC75IN INJ; +SODIUM CHLORIDE 0.9% INJ 10 ML SYR IV PRN; +SODIUM CHLORIDE 0.9% INJ 10 ML SYR IV SCH; +VITA50005 PO
[2019-03-28 15:00] VITALS: BP 187/86
--- NOTE | 2019-03-28 17:11 | REP ---
MIDLINE INSERTION WITH ULTRASOUND GUIDANCE: REASON FOR EXAM: IV antibiotics PROCEDURE: Midline catheter insertion under ultrasound guidance. This procedure was performed by OLGA Krause, under the direct supervision of Dr. Salguero. The risks and benefits of the procedure were explained to the patient and informed consent was obtained prior to the procedure both verbally and written. Directly prior to the start of the procedure, a formal timeout was completed in the procedure room. The left basilic vein was localized using ultrasound guidance. The skin was prepped and draped in a sterile fashion. 1% lidocaine 10 mg/ml was used as a local anesthetic. Using ultrasound guidance the left basilic vein was cannulated and a 0.018 guidewire was inserted. The needle was removed and a 4.5 Malay dilator and a Peel-Away sheath was inserted over the guidewire. A 4.5 Malay single lumen catheter was cut to the length of 11 cm. The dilator was removed and the catheter was inserted over the guidewire. The Peel-Away sheath was removed and the catheter was flushed with heparinized saline as per hospital protocol. The catheter was affixed to the skin and a sterile dressing was applied. The patient tolerated the procedure well and there were no immediate complications. Reviewed by OLGA Sanchez 03/28/2019 03:57 P Electronically Signed by Carmelo Salguero MD 03/28/2019 05:01 P
== END ==
LOC: M IRPRO 13:43
PROVIDERS: ATTEND Internal Medicine Infectious Disease
DX: A49.8 Other bacterial infections of unspecified site (principal); N39.0 Urinary tract infection, site not specified; E78.2 Mixed hyperlipidemia; E11.42 Type 2 diabetes mellitus with diabetic polyneuropathy; I25.810 Atherosclerosis of coronary artery bypass graft(s) without angina pectoris; R97.20 Elevated prostate specific antigen [PSA]; N18.6 End stage renal disease; Z79.899 Other long term (current) drug therapy; Z79.4 Long term (current) use of insulin; Z88.6 Allergy status to analgesic agent
CPT/HCPCS: 36573; 76937; 96365; C1751; J1642; J1644; J2185

== ENCOUNTER → 2019-04-01 | Outpatient (REF) | payer OTHER, MEDICARE ==
[~2019-04-01] MED LIST changes: -LIDOCAINE 1% MDV 20ML VIAL As Ordered ONE; -SODIUM CHLORIDE 0.9% INJ 10 ML SYR IV PRN; -SODIUM CHLORIDE 0.9% INJ 10 ML SYR IV SCH
[2019-04-01 19:28] LABS: BASO # 0.1 10^3/uL (0.0-0.2); BASO % 0.9 % (0.0-1.0); EOS # 1.2 10^3/uL (0.0-0.5); EOS % 15.3 % (0.0-3.0); HEMATOCRIT 35.8 % (42.0-52.0); HEMOGLOBIN 11.8 g/dl (13.5-17.5); LYMPH # 1.1 10^3/uL (1.5-5.0); LYMPH % 14.6 % (24.0-44.0); MEAN CORPUSCULAR HEMOGLOBIN 28.7 pg (27.0-33.0); MEAN CORPUSCULAR VOLUME 87.1 fl (80.0-96.0); MONO # 0.8 10^3/uL (0.0-0.8); MONO % 10.3 % (0.0-5.0); NEUTROPHILS # 4.4 10^3/uL (1.5-8.5); NEUTROPHILS % 58.5 % (36.0-66.0); PLATELET COUNT, AUTOMATED 187 10^3/uL (150-450); RED BLOOD COUNT 4.11 10^6/uL (4.30-6.10); WHITE BLOOD COUNT 7.6 10^3/uL (4.0-10.0)
[2019-04-01 19:52] LABS: ALBUMIN 3.1 GM/DL (3.2-5.2); BILIRUBIN,TOTAL 0.3 MG/DL (0.2-1.0); C REACTIVE PROTEIN QUANTITATIV 0.43 MG/DL (0.00-0.30); CALCIUM LEVEL 7.5 MG/DL (8.8-10.2); CREATININE FOR GFR 3.93 MG/DL (0.70-1.30); ERYTHROCYTE SEDIMENTATION RATE 26 mm/hr (0-20); GLOMERULAR FILTRATION RATE 16.4 (>49); POTASSIUM SERUM 4.3 MEQ/L (3.5-5.1); TOTAL PROTEIN 6.9 GM/DL (6.4-8.2)
== END ==
LOC: M SHH 18:23
PROVIDERS: ATTEND Internal Medicine Infectious Disease
DX: N39.0 Urinary tract infection, site not specified (principal); B96.5 Pseudomonas (aeruginosa) (mallei) (pseudomallei) as the cause of diseases classified elsewhere; E78.5 Hyperlipidemia, unspecified; E11.42 Type 2 diabetes mellitus with diabetic polyneuropathy
CPT/HCPCS: 80053; 85025; 85652; 86140; G0463

== ENCOUNTER → 2019-04-09 | Outpatient (CLI) | payer OTHER, MEDICARE ==
--- NOTE | 2019-04-09 11:15 | REP ---
CHEST X-RAY: TWO VIEWS. HISTORY: Pleural effusion. COMPARISON CHEST X-RAY: January 20, 2019 FINDINGS: Left hemidiaphragm remains elevated. There is blunting of the left lateral and posterior pleural angles indicating a small effusion on the left. This is somewhat improved from the January 20, 2019 study. A right-sided central venous tunnel catheter is seen in place, unchanged. Median sternotomy wires are noted. Heart size is improved and borderline. Pulmonary vasculature is cephalized. Right lung is clear. IMPRESSION: Small left effusion. Elevated left hemidiaphragm. Improved heart size and left pleural effusion. Electronically Signed by Carmelo Salguero MD 04/09/2019 02:30 P
== END ==
LOC: M CLY 10:28
PROVIDERS: ATTEND Nurse Practitioner Family
DX: J90 Pleural effusion, not elsewhere classified (principal)

== ENCOUNTER → 2019-04-11 | Outpatient (CLI) | payer OTHER, MEDICARE ==
[~2019-04-11] MED LIST changes: +CLOP75TA2; -CLOP75TA2 PO; -FOLI1TAB11 PO; -ISOS30TA4 PO; -LIDO2.5C15 TOP; -METO25TA4 PO; +MIRC75IN IJ; -MIRC75IN INJ; -VITA50005 PO
--- NOTE | 2019-04-11 11:50 | REP ---
THYROID ULTRASOUND: Real-time sonographic evaluation of the thyroid performed. Both lobes are mildly enlarged, right lobe measuring 4.8 x 2.3 x 2.3 cm and left lobe 5.0 x 2.5 x 1.6 cm. There are multiple tiny subcentimeter cysts bilaterally. Largest on the right is in the lower pole 5 mm in diameter. Largest on the left is 7 mm maximally in the upper pole. There is a complex cyst in the mid left lobe 12 x 9 x 10 mm containing multiple internal septations and internal echoes. IMPRESSION: Mild thyromegaly. Cystic structures seen bilaterally as discussed in detail above. Electronically Signed by Oh Abdi MD 04/15/2019 03:28 P
== END ==
LOC: M RAD 09:22
PROVIDERS: ATTEND Otolaryngology
DX: E04.1 Nontoxic single thyroid nodule (principal)

== ENCOUNTER → 2019-04-15 | Outpatient (CLI) | payer OTHER, MEDICARE ==
--- NOTE | 2019-04-16 13:06 | RADONC ---
RADIATION ONCOLOGY CONSULTATION NOTE DATE: 04/15/2019 CHART NUMBER: [id number] DIAGNOSIS: Prostate cancer. STAGE: II B, T2c, N0, M0, Nancy score 7 (3-4), grade group II, initial PSA level 13.9. ECOG PERFORMANCE STATUS: 1 CONSULTATION NOTE: Mr. Scott is a very pleasant and unfortunate 68-year-old white male with the diagnosis of what appears to be a stage II B, T2c, N0, M0, moderate to poorly differentiated Nancy score 7 (3-4) adenocarcinoma of the prostate, grade group II with initial PSA level of 13.9 who is presenting to us today for discussion of definitive external beam radiation therapy with IMRT/IGRT. HISTORY OF PRESENT ILLNESS: The patient was in his usual state of health until PSA was undertaken, which was found to be 13.9. On 03/11/2019, the patient underwent prostatic needle biopsy and pathology revealed a Nancy score 7 (3-4) adenocarcinoma of the prostate. Malignancy was found on both sides of his prostate. The patient is scheduled for placement of his fiducial markers as well as androgen deprivation therapy on April 21. He is now presenting for discussion of definitive external beam radiation therapy. ALLERGIES: The patient is allergic to ASPIRIN and NONSTEROIDAL ANTI-INFLAMMATORY DRUGS. PAST MEDICAL HISTORY: The patient's past medical history is positive for an NE in November 2018 and cardiac catheterization. He had quadruple bypass. He has a history of arthritis and bronchitis as well as pneumonia x2. He has a long history of 30 years or more of diabetes as well as hypertension. The patient is in kidney failure and has been undergoing dialysis for the past year or so. He also has asthma. In addition, the patient had hernia surgery in the 1980s and rhinoplasty in 2003 and 2014. He had arthroscopic knee surgery in 2014 as well as thoracentesis. SOCIAL HISTORY: The patient does not smoke cigarettes. He quit drinking alcohol 36 years ago. FAMILY HISTORY: The patient's family history is positive for a father with prostate cancer. REVIEW OF SYSTEMS: The patient's review of systems is positive for dialysis for kidney failure with physical limitations thereof. He has decreased energy. He denies nausea, vomiting, fevers, chills, night sweats, diplopia, headaches, anxiety or depression, anorexia, weight loss, visual disturbances, chest pain, shortness of breath, or bowel difficulties or bone pain. PHYSICAL EXAMINATION: The patient is a well-developed, well-nourished male in no acute distress. HEENT exam is normocephalic, atraumatic. Extraocular movements are intact. There is no palpable cervical, supraclavicular, infraclavicular, axillary, or inguinal lymphadenopathy present. Lungs are clear to auscultation and percussion. Heart has a regular rate and rhythm. Abdomen is benign with no hepatosplenomegaly, masses, or tenderness. Rectal examination reveals a normal anal sphincter tone. His prostate is smooth with no evidence of nodularity. Skeletal examination reveals no tenderness to pressure or percussion of the bony skeleton. Extremities reveal no clubbing, cyanosis, or edema. Neurologic exam is grossly intact, as is the remainder of the physical examination. MEDICAL NECESSITY: IMRT/IGRT is clinically indicated for the highly conformal dose planning required. The target volume is in close proximity to critical structures, such as the rectum, bladder, small bowel, and femoral heads. The volume of interest must be covered with narrow margins to adequately protect immediately adjacent structures. The plan requires interpretation of complex testing such as CT localization. As noted above, special planning (IMRT) and localizing (IGRT) is required and essential to maximally protect sensitive normal tissue structures which cannot be accomplished using conventional 3-dimensional planning. ASSESSMENT: I do believe the patient is a candidate for external beam radiation therapy and I have so informed him. I have discussed with the patient in detail the potential benefits as well as possible acute and chronic sequelae of external beam radiation therapy. We discussed logistics of treatment planning, simulation and subsequent fractionated daily radiation treatments. The patient is scheduled for placement of his fiducial markers on Sunday the as well as hormonal treatment to begin then. We therefore will be scheduling him for simulation initiation of treatment planning in early to mid May. The patient has other medical illnesses and therefore it would not be unreasonable to continue with observation or just androgen deprivation therapy at this time. However, the patient has made his decision with regards to his treatment options and is choosing to undergo radiation therapy. Clearly, he is not a surgical candidate considering his other comorbidities. cc: MD Colin Jewell, DO
== END ==
LOC: M ONCR 13:40
PROVIDERS: ATTEND Radiology Radiation Oncology
DX: C61 Malignant neoplasm of prostate (principal)

== ENCOUNTER → 2019-04-16 | Outpatient (REF) | payer OTHER, MEDICARE | LOC: M SMT 04-15 17:40 | PROVIDERS: ATTEND Urology | DX: N39.0 Urinary tract infection, site not specified (principal) ==

== ENCOUNTER → 2019-04-22 | Outpatient (CLI) | payer OTHER, MEDICARE ==
[~2019-04-22] MED LIST changes: -CLOP75TA2; +CLOP75TA2 PO; +FOLI1TAB11 PO
--- NOTE | 2019-04-22 14:23 | REPPI ---
Prostate sonography: History: Fiducial marker placement. Prior prostate biopsy. Sonographic findings: Transrectal sonographic guidance is provided to Dr. Cardozo who performed trans rectal ultrasound guided fiducial marker placement. Electronically Signed by Carmelo Salguero MD 04/22/2019 02:14 P
== END ==
LOC: M SMT PRO 09:34
PROVIDERS: ATTEND Urology
DX: C61 Malignant neoplasm of prostate (principal)

== ENCOUNTER 2019-05-07 09:40 | Day surgery (SDC) | payer OTHER, MEDICARE ==
[~2019-05-07] VITALS: Ht 175.3 cm; Wt 78.9 kg
[~2019-05-07 09:40] MED LIST changes: +D5W/0.2% SODIUM CHLORIDE 1,000 ML IV ONE; +ceFAZolin SOD 2 GM in IV 1 EA IV ONE
[2019-05-07] MEDS ORDERED: HEPARIN SOD (PORCINE) 5000 UNITS/ML VIAL (J1644 PER 1000UNITS) As Ordered ONE ×4 (09:51→13:19)
[2019-05-07] MEDS ORDERED: ONDANSETRON 4MG/2ML VIAL (J2405) As Ordered ONE (11:19)
[2019-05-07] MEDS ORDERED: propofoL 200 MG/20 ML VIAL As Ordered ONE (11:19)
[2019-05-07] MEDS ORDERED: dexameTHASONE 4 MG/ML 1ML VIAL (J1100) As Ordered ONE (11:19)
[2019-05-07] MEDS ORDERED: LIDOCAINE 2% INJ 100 MG/5 ML SDV (FOR ANES.) As Ordered ONE (11:19)
[2019-05-07] MEDS ORDERED: fentaNYL 100 MCG/2 ML INJECTION (J3010) As Ordered ONE (11:21)
[2019-05-07] MEDS ORDERED: MIDAZOLAM INJ 2 MG/2 ML VIAL (J2250) As Ordered ONE (11:21)
[2019-05-07] MEDS ORDERED: LIDOCAINE 1% SDV INJ 30 ML VIAL As Ordered ONE (12:44)
[2019-05-07] MEDS ORDERED: BUPIVACAINE/EPIN 0.25% 30 ML VIAL As Ordered ONE (12:44)
[2019-05-07] MEDS ORDERED: BUPIVACAINE/EPIN 0.5% 30 ML VIAL As Ordered ONE (12:46)
[2019-05-07] MEDS ORDERED: ePHEDrine SULFATE 25 MG/5 ML(5MG/ML) SYRINGE As Ordered ONE (13:32)
[2019-05-07] MEDS ORDERED: hydrALAZINE INJ 20 MG/ML VIAL As Ordered ONE (14:36)
[2019-05-07] MEDS ORDERED: OXYC1TAB23 PO (15:07)
--- NOTE | 2019-05-07 15:13 | ROOPDOC ---
[facility] Report Of Operation Report of Operation DATE OF PROCEDURE: 05/07/19 PREPROCEDURE DIAGNOSES: End-stage renal disease requiring access for hemodialysis POSTPROCEDURE DIAGNOSES: Same PROCEDURE: Left brachial artery to axillary vein Artegraft placement SURGEON: Marco Munoz MD ANESTHESIA: Local anesthesia and LMA anesthesia INDICATION FOR PROCEDURE: Very pleasant 68-year-old gentleman with end-stage renal disease requiring AV axis for dialysis after failed right and left upper extremity autologous AV access. Risks benefits and alternatives to a left brachial axillary Artegraft placement were explained to the patient he is agreeable to proceed. Informed consent was obtained. REPORT OF OPERATION: The patient was brought to the OR in stable condition and placed supine on the OR table. LMA anesthesia and antibiotics were administered without complication. His left upper extremity was prepped and draped in a sterile fashion. A timeout was performed. Local anesthesia was Mr. to the skin and subcutaneous tissue over the brachial artery just proximal to the antecubital crease. A longitudinal incision was made directly over the artery and carried down through the subcutaneous tissues Bovie cautery. Nerves were carefully avoided. We dissected down to the brachial sheath which was opened and exposed the brachial artery and veins. The veins crisscrossed over the artery and these were carefully dissected away to free the artery. Vesseloops replace proximally and distally in the artery. Next, local anesthesia was a church official to the skin and subcutaneous tissue over the brachial artery pulse in the axilla. A n incision was made over the brachial artery pulse and carried down through the subcutaneous tissues Bovie cautery. Nerves were carefully avoided. We dissected down to the axillary vein which was skeletonized proximally and distally. A vessel loop was placed on the distal end. We plan to place able to clamp on the proximal and when it is time for the anastomosis. We then tunneled a 7 mm diameter Artegraft over the biceps from incision to incision. The arterial and was narrowed with 5-0 Prolene suture to a 5 mm opening prior to anastomosis. We then secured the Vesseloops after 2000 units of heparin was given and allowed to circulate. A 5 mm arteriotomy was made. The graft was anastomosis to the artery and an end-to-side fashion with a running 6-0 Prolene suture. Before the final sutures are placed, clamp was placed on the graft near the artery graft anastomosis and the inflow and outflow of the artery were flushed and the anastomosis was irrigated with heparinized saline. We then placed her final sutures and restored flow through the artery. A good pulse was noted at the radial artery. We then made a long bevel for the outflow of the graft. A bulldog clamp was placed on the proximal vein and a vessel loop was secured on the distal aspect of the vein. A long venotomy was made in the axillary vein and the graft was anastomosis to the vein and an end-to-side fashion with running 6-0 Prolene suture. Before the final sutures are placed we flushed inflow and outflow at the vein as well as we flushed the arterial flow through the graft. We then irrigated with heparinized saline in the final sutures are placed. First restored flow through the vein and then added the arterial flow. Upon completion of both anastomoses, there was an excellent thrill in the graft that was easily palpable from the skin and the graft is easy to palpate over the bicep. We then irrigated both incisions with normal saline. Prior to closing, we dopplered the graft and found excellent unobstructed flow, and we dopplered the palmar arch and found a biphasic signal that did not change with compression of the graft or with the graft open. The hand was warm and pink and there was a radial pulse. At the arterial anastomosis, we closed the deep layer with running Vicryl suture and deep dermal interrupted Vicryl sutures are placed to approximate the skin and then the skin was closed with a running 4 Monocryl suture. Mastisol and Nicholas ri-Strips replace the length of the wound. The axillary incision, we close the deep tissue with a running Vicryl suture. We closed the fascia in 2 layers over this with running Vicryl suture. Interrupted deep dermal Vicryl sutures were used to approximate the skin and the skin was closed with a running subcuticular Monocryl suture. Mastisol and Steri-Strips replace the length of the wound. We then placed 4 x 4's and Tegaderms over the Steri-Strips. A sling was placed just to minimize the use of the arm over the next 24 hours. We would like the patient to restart his Plavix tomorrow as this can help with graft patency as well as for his other medical issues, and he will be less likely to have any significant bruising or bleeding if his arm is relatively immobile until some healing begins. The patient was then allowed to awaken from anesthesia and was taken to recovery in stable condition. ESTIMATED BLOOD LOSS: Approximately 25 mL. COMPLICATIONS: None PLAN: It is okay for the patient to resume his home medications and diet, and he can resume his Plavix tomorrow. No strenuous exercise or lifting greater than 5 pounds with the right arm for one week or until he incision is completely healed. Try to leave the Steri-Strips intact for 5-7 days to help with healing. Okay removed the Tegaderm and gauze after 48 hours if desired. Okay to discontinue the sling after 24 hours. Prescription for Percocet called into the kidney and [facility]y. Follow-up in a week to check incisions and perfusion. We appreciate the opportunity to participate in the care of this patient. MARCO MUNOZ MD May 07, 2019 15:13
[2019-05-07] MEDS ORDERED: fentaNYL 100 MCG/2 ML INJECTION (J3010) IV PRN (15:15)
[2019-05-07] MEDS ORDERED: PERCOCET 5MG/325MG TAB PO PRN (15:15)
[2019-05-07] MEDS ORDERED: LR 1,000 ML IV SCH (15:15)
[2019-05-07] MEDS ORDERED: ONDANSETRON 4MG/2ML VIAL (J2405) IV PRN (15:15)
[2019-05-07 16:45] VITALS: BP 128/54
== END 2019-05-07 16:55 | disposition home or self-care (01) ==
LOC: M SDC 09:40
PROVIDERS: ATTEND Surgery Vascular Surgery
DX: N18.6 End stage renal disease (principal); E11.22 Type 2 diabetes mellitus with diabetic chronic kidney disease; I25.10 Atherosclerotic heart disease of native coronary artery without angina pectoris; I25.2 Old myocardial infarction; I50.22 Chronic systolic (congestive) heart failure; I13.2 Hypertensive heart and chronic kidney disease with heart failure and with stage 5 chronic kidney disease, or end stage renal disease; J90 Pleural effusion, not elsewhere classified; E04.1 Nontoxic single thyroid nodule; D50.9 Iron deficiency anemia, unspecified; M15.0 Primary generalized (osteo)arthritis; G62.9 Polyneuropathy, unspecified; N40.0 Benign prostatic hyperplasia without lower urinary tract symptoms; E78.2 Mixed hyperlipidemia; Z88.6 Allergy status to analgesic agent; Z79.899 Other long term (current) drug therapy; Z79.4 Long term (current) use of insulin; Z87.440 Personal history of urinary (tract) infections; Z99.2 Dependence on renal dialysis
CPT/HCPCS: 36415; 36830; 84132; C1768; J0690; J1100; J1644; J2250; J2405; J3010

== ENCOUNTER 2019-06-03 16:24 | Inpatient (IN) | payer OTHER, MEDICARE ==
[~2019-06-03] VITALS: Ht 175.3 cm; Wt 78.4 kg
[~2019-06-03 16:24] MED LIST changes: -D5W/0.2% SODIUM CHLORIDE 1,000 ML IV ONE; -MIRC75IN IJ; +MIRC75IN INJ; -ceFAZolin SOD 2 GM in IV 1 EA IV ONE
--- NOTE | 2019-06-03 17:52 | REP ---
Clinical: Cough and dyspnea. Comparison: 04/09/2019. Findings: Mediastinum and cardiac silhouette are stable. Evidence for prior sternotomy, CABG, and double-lumen tunneled venous catheter again noted. Lung barr demonstrate chronic-appearing interstitial changes along with elevation to the left hemidiaphragm and mid to lower lobe pleuroparenchymal changes which appear chronic. Subtle superimposed left lower lobe atelectasis cannot be excluded. No definite effusion. No pneumothorax. Impression: 1. Chronic stable changes. 2. Subtle left lower lobe atelectasis/infiltrate suspected. Electronically Signed by Mg Pepe MD 06/03/2019 05:44 P
--- NOTE | 2019-06-03 19:09 | REPVR ---
PROCEDURE INFORMATION: Exam: CT Chest Without Contrast Exam date and time: 06/03/2019 6:45 PM Age: 68 years old Clinical indication: Chest pain; Additional info: Effusion TECHNIQUE: Imaging protocol: Computed tomography of the chest without contrast. 3D rendering: MIP and/or 3D reconstructed images were created by the technologist. Radiation optimization: All CT scans at this facility use at least one of these dose optimization techniques: automated exposure control; mA and/or kV adjustment per patient size (includes targeted exams where dose is matched to clinical indication); or iterative reconstruction. COMPARISON: 1. ID PORTABLE CHEST X-RAY 06/03/2019 5:[address] Chest with contrast 03/21/2013 11:35:11 PM FINDINGS: Tubes, catheters and devices: There is a right internal jugular central venous line terminating in the distal portion of the superior vena cava. Tracheobronchial tree: Normal. Lungs: There is ground-glass opacification with superimposed consolidation in the anterior segment of the left upper lobe. There is compressive atelectasis in the lingula and left lower lobe. Mild atelectasis is also noted in the medial aspect of the right lower lobe. Pleural space: There is a small left pleural effusion. No pneumothorax. No calcified pleural plaques. Heart: No cardiomegaly or pericardial effusion. There are coronary artery calcifications. Mediastinum: No mediastinal mass, fluid collection, or pneumomediastinum. Aorta: No thoracic aortic aneurysm or intramural hematoma is noted. There are mild to moderate atherosclerotic calcifications. Lymph nodes: There is a 10 mm enlarged prevascular lymph node and a 12 mm enlarged pretracheal lymph node, which are new compared to the prior CT chest on 03/21/2013. Diaphragm: The left hemidiaphragm is elevated. Pancreas: There are several calcifications in the pancreas, which are the sequela of chronic pancreatitis. No inflammatory fat stranding or fluid is noted around the pancreas to suggest acute pancreatitis. The main pancreatic duct is dilated and measures 8 mm in diameter. The head of the pancreas was not fully imaged. Spleen: Unremarkable. No splenomegaly is noted. Adrenals: Normal. No adrenal mass is noted. Bones/joints: Intact median sternotomy suture wires are noted fixating a healed median sternotomy. No fracture or dislocation is noted. There is no suspicious osteolytic or osteoblastic lesion. There are endplate spurs in the thoracic spine. Soft tissues: There is mild bilateral gynecomastia. IMPRESSION: 1. Ground-glass opacification with superimposed airspace consolidation in the anterior segment of the left upper lobe, which likely represents pneumonia. Imaging features can be seen with COVID-19 pneumonia, though are nonspecific and can occur with a variety of infectious and noninfectious processes. 2. Small left pleural effusion with associated compressive atelectasis in the lingula and left lower lobe. 3. Evidence for chronic pancreatitis, and there is dilation of the main pancreatic duct. The head of the pancreas was not fully imaged. 4. Prevascular and pretracheal lymphadenopathy. REFERENCES: Greg Toney et al., Rad[employer] Society of [place] Expert Consensus Statement on Reporting Chest CT Findings Related to COVID-19. Endorsed by the Society of Thoracic Radiology, the [place] [employer], and RSNA. Published April 30, 2019. Electronically signed by: Beni Robles On 06/03/2019 19:09:26 PM
[2019-06-03 19:10] LABS: BASO # 0.1 10^3/uL (0.0-0.2); BASO % 0.9 % (0.0-1.0); EOS % 12.9 % (0.0-3.0); HEMATOCRIT 32.2 % (42.0-52.0); HEMOGLOBIN 10.7 g/dl (13.5-17.5); LYMPH # 1.1 10^3/uL (1.5-5.0); MEAN CORPUSCULAR HEMOGLOBIN 29.6 pg (27.0-33.0); MEAN CORPUSCULAR HGB CONC 33.2 g/dl (32.0-36.5); MEAN CORPUSCULAR VOLUME 89.2 fl (80.0-96.0); MONO # 0.7 10^3/uL (0.0-0.8); MONO % 9.1 % (0.0-5.0); NEUTROPHILS % 62.6 % (36.0-66.0); PLATELET COUNT, AUTOMATED 163 10^3/uL (150-450); RED BLOOD COUNT 3.61 10^6/uL (4.30-6.10); WHITE BLOOD COUNT 8.1 10^3/uL (4.0-10.0)
[2019-06-03 20:06] LABS: ABG BASE EXCESS 2.5 (-2.0-2.0); ABG HCO3 27.1 MEQ/L (22.0-26.0); ABG PARTIAL PRESSURE CO2 42.4 mmHg (35.0-45.0); ABG PARTIAL PRESSURE O2 99.9 mmHg (75.0-100.0); ABG STANDARD HCO3 26.6 MEQ/L (22.0-26.0); ABG TOTAL CO2 28.4 MEQ/L (23.0-31.0); ABG pH (ARTERIAL) 7.424 UNITS (7.350-7.450)
[2019-06-03 20:07] LABS: ALBUMIN 3.6 GM/DL (3.2-5.2); BILIRUBIN,DIRECT 0.2 MG/DL (0.0-0.2); BILIRUBIN,TOTAL 0.4 MG/DL (0.2-1.0); CALCIUM LEVEL 8.4 MG/DL (8.8-10.2); CREATININE FOR GFR 4.42 MG/DL (0.70-1.30); GLOMERULAR FILTRATION RATE 14.3 (>49); POTASSIUM SERUM 3.5 MEQ/L (3.5-5.1); THYROID STIMULATING HORMONE 2.53 uIU/ML (0.358-3.740); TOTAL PROTEIN 7.4 GM/DL (6.4-8.2)
[2019-06-03] MEDS ORDERED: ACETAMINOPHEN TAB 650MG DOSE (2X325MG) PO PRN (20:45)
--- NOTE | 2019-06-03 20:49 | IPNPDOC ---
Text Note Date of Service The patient was seen on 06/03/19. NOTE Time of Service 1100PM Mr.Lamora edwards is a 68-year-old with a history of Prostate CA, ESRD, MARISABEL, TTS, HTN, DM, dyslipidemia, ED, asthma, and chronic pseudomonas UTI who is admitted for management of acute asthma likely 2/2 left upper lobe PNA. 1. Asthma exacerbation secondary to pneumonia -solumedrol, mag sulfate, nebs, albuterol, abx & f/u sputum cx, MRSA, strep PNA and legionella 2. HTN Urgency - resume BP meds & increase dose of metolazone from 5 to 10 mg daily 3. Bradcardia possibly 2/2 metoprolol & plavix. EKG shows bradycardia w PVCs - telemetry 4. Prostate CA. Scheduled for daily radiation tx tomorrow. - will ask the day time team to call to see if the pt should have his sessions deffered until the PNA has resolved 5. ESRD - nephro consult & c/w home meds 6. DM A1C 8.1% in Feb - hypoglycemia order set / resume home meds rest per 's H&P VS,Fishbone, I+O VS, Fishbone, I+O Laboratory Tests 06/03/19 18:57 Vital Signs Date Time Temp Pulse Resp B/P (MAP) Pulse Ox O2 Delivery O2 Flow Rate FiO2 06/03/19 20:17 59 18 176/82 (113) 98 Room Air 06/03/19 16:24 98.6 DANDY CERVANTES MD Jun 03, 2019 20:49
[2019-06-03] MEDS: DOCUSATE SODIUM 100 MG CAP PO SCH (21:00)
[2019-06-03] MEDS ORDERED: VITA50005 PO (21:38)
[2019-06-03] MEDS ORDERED: ALL10TAB29 PO (21:38)
[2019-06-03] MEDS ORDERED: HYDR-3911 PO (21:38)
[2019-06-03] MEDS ORDERED: METO25TA4 PO (21:38)
[2019-06-03] MEDS ORDERED: LIDO2.5C15 TOP (21:38)
[2019-06-03] MEDS ORDERED: FUROSEMIDE 40MG/4ML VIAL (J1940) IV ONE (22:30)
[2019-06-03] MEDS ORDERED: ISOS30TA4 PO (22:33)
[2019-06-03] MEDS ORDERED: IPRATROPIUM 0.5MG/ALBUTEROL 2.5MG INH SOL UD 3ML (DUONEB)(J7620) INH PRN (22:45)
[2019-06-03 23:00] VITALS: O2SAT 99
[2019-06-03] MEDS ORDERED: MAG SULF 1GM/100ML (MAG RUN) 1 GM in IV 1 EA IV ONE (23:00)
[2019-06-03] MEDS ORDERED: LevoFLOXacin IV 750 MG in IV 1 EA IV ONE (23:00)
[2019-06-03 23:10] LABS: C REACTIVE PROTEIN QUANTITATIV 0.39 MG/DL (0.00-0.30)
[2019-06-03] MEDS ORDERED: GLUCAGON INJ 1MG VIAL SC PRN (23:15)
[2019-06-03] MEDS ORDERED: DEXTROSE 50% 50 ML SYRINGE IV PRN (23:15)
[2019-06-03] MEDS ORDERED: GLUCOSE 4GM CHEW TABLET PO PRN (23:15)
[2019-06-03 23:25] VITALS: BP 158/54
--- NOTE | 2019-06-03 23:28 | HPEPDOC ---
[facility] Medical History & Physical Date of Admission Jun 03, 2019 Date of Service: Jun 03, 2019 History and Physical CHIEF COMPLAINT: SOB while laying flat HISTORY OF PRESENT ILLNESS: This is a 68-year-old male with a pertinent past medical history of prostate cancer currently undergoing radiation therapy, end- stage renal disease on hemodialysis, insulin-dependent diabetes who is pre senting to our ER for shortness of breath for the last few days that worsened in the last 24 hours. He noticed these symptoms are exacerbated when he is laying down to go to bed. He denies PND and noticed improvement of symptoms with elevation of his head and legs. He believes the symptoms are similar to when he had congestive heart failure in November. He endorses being compliant with his blood pressure medication including the Bumex as prescribed. His last dialysis session was prior to visiting the ER today and he had 3.2 L removed. He endorses when he is ambulating he does not have any shortness of breath with exertion surprisingly or weakness with increased exercise. He denies any recent sick contact, fevers, chills, chest pain, palpitations, or upper respiratory like symptoms. He does endorse to a dry cough which is not too irritating so there is no new medications. PAST MEDICAL HISTORY: 1. IDDM, 2. HTN 3. End-stage renal disease on hemodialysis 4. Asthma 5. Prostate cancer. Last radiation therapy 06/03/2019 6. History of [place] status post Quad bypass 11/2018 7. History Congestive heart failure 8. History of anxiety 9. History of hyperlipidemia. HOME MEDICATIONS: Please see below. ALLERGIES: Please see below PAST SURGICAL HISTORY: 1. Sinus Surgery 2. Left Knee Surrgery 3. Quad bypass 11/2018 4. Cardiac cath 11/2017 currently on Plavix 5. Left inguinal hernia repair SOCIAL HISTORY: Lives with: . Tobacco use:Denies. ETOH: Denies, Illicit drug use: Denies, CODE STATUS: Full Code FAMILY HISTORY: Reviewed .Positive for Cancer REVIEW OF SYSTEMS: 10 systems reviewed. Constitutional: Denies fever, chills, night sweats, weight loss HEENT: Denies headache, dysphagia Skin: Denies any rashes or lesions Pulmonary: Denies dyspnea, wheezing, admits to dry cough Cardiac: Denies chest pain, palpitations, lightheadedness, PND, Admits orthopnea, edema GI: Denies nausea, vomiting, abdominal pain, diarrhea, constipation, melena, hematochezia : Denies dysuria, hematuria, retention MSK: Denies new pains or weakness Neurologic: Denies new numbness/tingling PHYSICAL EXAMINATION: VITAL SIGNS: See Below GENERAL: Pleasant 68 year old male sitting up in bed awake alert oriented speaking in complete sentences no acute distress. No accessory muscle use HEENT: Atraumatic normocephalic deviated septum, history of a break not acute, moist mucous membranes, no JVD ~ 5 cm from the sternal notch, trachea midline. No lymphadenopathy noted. CARDIOVASCULAR: Faint S1-S2 sounds present regular rate and rhythm. Faint 2/6 systolic murmur loudest at the apex of the heart no radiation RESPIRATORY: To auscultate bilaterally superiorly. Diminished breath sounds bilaterally left worse than right. Dullness to percussion the left< right. No E to A egophony. Poor resonance at the bases. Decreased fremitus at the bases as well ABDOMINAL: Positive bowel sounds in all 4 quadrants, soft nontender nondistended bowels. EXTREMITIES: 2-3+ pitting edema bilaterally up to knees. NEUROLOGICAL: No gross focal deficits appreciated PSYCHOLOGICAL: Appropriate LABORATORY DATA: See below. MICROBIOLOGY: Please see below. IMAGIN06/03/2019 CT of the chest without contrast 1. Ground-glass opacification with superimposed airspace consolidation in the anterior segment of the left upper lobe, which likely represents pneumonia. Imaging features can be seen with COVID-19 pneumonia, though are nonspecific and can occur with a variety of infectious and noninfectious processes. 2. Small left pleural effusion with associated compressive atelectasis in the lingula and left lower lobe. 3. Evidence for chronic pancreatitis, and there is dilation of the main pancreatic duct. The head of the pancreas was not fully imaged. 4. Prevascular and pretracheal lymphadenopathy. Chest X-ray Impression: 1. Chronic stable changes. 2. Subtle left lower lobe atelectasis/infiltrate suspected. ASSESSMENT & PLAN: This is a 68-year-old male with a pertinent past medical history of prostate cancer currently undergoing radiation therapy, end-stage renal disease on hemodialysis, insulin-dependent diabetes who is presenting to our ER for shortness of breath for the last few days that worsened in the last 24 hours. PROBLEMS: 1. Shortness of breath secondary to Left upper lobe pneumonia as well as possible acute CHF exacerbation. -CT chest Ground-glass opacification with superimposed consolidation in the left upper lobe. -COVID negative. BNP elevated in the ER, -Community acquired pneumonia coverage, with Levaquin that is HD dosed. -Sputum Cx, respiratory panel, mycoplasma, legionella, media testing currently pending. Check CRP, ESR, and proximal acetone and. -De-escalate antibiotics pending clinical improvement and sputum cultures. -If pro-calcitonin is negative can consider discontinuing antibiotics. -Acute CHF exacerbation. Lasix 80MG iv X1 now, c/w home Bumex 2mg BID in AM -2 g sodium diet with 2 L fluid restriction and echocardiogram currently pending, also assess for mummer which has been not been documented in the past -Last echo 06/2018. normal LVEF: 65%, Diastolic dysfunction -Strict Is and Os and will monitor. 2. ESR on HD dialysis on Sunday. Nephrology consulted to continue dialysis while admitted. 3. Hypertension. Did not take home medication prior to presentation, will resume all home medication with hold parameters of SBP less than 110 or heart rate less than 65. 4. Prostate cancer. Last radiation therapy 06/03/2019. 5. History of [place] s/p Quad bypass 11/2018. Continue with clopidogrel and metoprolol 25 mg twice a day with hold parameters as prescribed. Remote telemetry for 48 hours 6. Dependent diabetes. Hold home insulin and continue with insulin sliding scale and continue with Levemir 25 daily for long-acting coverage. AC&QHS fingersticks in place. Continue with gabapentin for neuropathy 7. History of hyperlipidemia. Continue with atorvastatin 20 mg daily 8. History of asthma. Continue with home Symbicort. DVT PROPHYLAXIS:Heparin BID DISPOSITION:Admit Med surg with telemetry Vital Signs Vital Signs Date Time Temp Pulse Resp B/P (MAP) Pulse Ox O2 Delivery O2 Flow Rate FiO2 06/03/19 22:51 97.6 59 18 168/82 (110) 99 Room Air Laboratory Data Labs 24H Laboratory Tests 2 06/03/19 18:33: Lactic Acid Level 1.2 06/03/19 18:57: Immature Granulocyte % (Auto) 0.5, Neutrophils (%) (Auto) 62.6, Lymphocytes (%) (Auto) 14.0L, Monocytes (%) (Auto) 9.1H, Eosinophils (%) (Auto) 12.9H, Basophils (%) (Auto) 0.9, Neutrophils # (Auto) 5.0, Lymphocytes # (Auto) 1.1L, Monocytes # (Auto) 0.7, Eosinophils # (Auto) 1.0H, Basophils # (Auto) 0.1, Nucleated Red Blood Cells % (auto) 0.0, Anion Gap 11, Glomerular Filtration Rate 14.3L, Calcium Level 8.4L, Total Bilirubin 0.4, Direct Bilirubin 0.2, Aspartate Amino Transf (AST/SGOT) 27, Alanine Aminotransferase (ALT/SGPT) 81H, Alkaline Phosph atase 101, C-Reactive Protein, Quantitative 0.39H, HO-Mlo-J-Type Natriuretic Peptide 94451C, Total Protein 7.4, Albumin 3.6, Albumin/Globulin Ratio 0.95L, Thyroid Stimulating Hormone (TSH) 2.530 06/03/19 19:45: Blood Gas Bicarbonate Standard 26.6H, Arterial Blood pH 7.424, Arterial Blood Partial Pressure CO2 42.4, Arterial Blood Partial Pressure O2 99.9, Arterial Blood Total CO2 28.4, Arterial Blood HCO3 27.1H, Arterial Blood Base Excess 2.5H, Arterial Blood Oxygen Saturation 96.0 06/03/19 21:32: Coronavirus (COVID-19)(PCR) NEGATIVE CBC/BMP Laboratory Tests 06/03/19 18:57 Microbiology Microbiology 06/03/19 Respiratory Virus Panel (PCR) ([facility]), Received Pending 06/03/19 Blood Culture, Received Pending 06/03/19 Blood Culture, Received Pending Home Medications Scheduled Atorvastatin Calcium (Atorvastatin Calcium) 40 Mg Tablet, 40 MG PO QPM TAKES AT DINNERTIME Budesonide/Formoterol (Symbicort 160-4.5 Mcg Inhaler) 6 Gm Hfa.aer.ad, 2 PUFF INH BID Bumetanide (Bumetanide) 2 Mg Tablet, 2 MG PO BID Calcium Acetate (Calcium Acetate) 667 Mg Capsule, 1,334 MG PO WM Cetirizine HCl (Cetirizine HCl) 10 Mg Tablet, 5 MG PO DAILY Clopidogrel Bisulfate (Clopidogrel) 75 Mg Tablet, 75 MG PO DAILY Docusate Sodium (Colace) 100 Mg Capsule, 100 MG PO BID Ergocalciferol (Vitamin D2) (Vitamin D2) 50,000 Units Cap, 50,000 UNITS PO QWEEK SUNDAYS Fluticasone Propionate (Flonase Allergy Relief) 9.9 Ml [place].susp, 1 SPRAY NARES BID Folic Acid (Folic Acid) 1 Mg Tablet, 1 MG PO DAILY Gabapentin (Gabapentin) 300 Mg Capsule, 300 MG PO QPM TAKES AT DINNERTIME Hydralazine HCl (Hydralazine HCl) 50 Mg Tablet, 50 MG PO TID Insulin Glargine,Hum.rec.anlog (Lantus Solostar) 100 Unit/1 Ml Insuln.pen, 25 UNITS SC DAILY Insulin Human Lispro (Humalog) 100 Unit/1 Ml Vial, 1 DOSE SC AC PER SLIDING SCALE Isosorbide Mononitrate (Isosorbide Mononitrate ER) 30 Mg Tab.er.24h, 60 MG PO 4XWK MON, WED, FRI, SUN - NON-DIALYSIS DAYS. NONE ON DIALYSIS DAYS Lidocaine/Prilocaine (Lidocaine-Prilocaine Cream) 2.5%/2.5% Cream..g., 1 DOSE TOP 3XW APPLY TO PORT 1 HOUR PRIOR TO DIALYSIS Losartan Potassium (Losartan Potassium) 50 Mg Tablet, 50 MG PO BID DOES NOT TAKE PRIOR TO DIALYSIS, SO ON DIALYSIS DAYS, TAKES AROUND 1300 AND DINNERTIME AND ON NON-DIALYSIS DAYS, TAKES AM AND DINNERTIME Methoxy Peg-Epoetin Beta (Mircera) 75 Mcg/0.3 Ml Syringe, 75 MCG INJ QMONTH Metolazone (Metolazone) 5 Mg Tablet, 5 MG PO DAILY Metoprolol Tartrate (Metoprolol Tartrate) 25 Mg Tablet, 25 MG PO BID Sucroferric Oxyhydroxide (Velphoro) 500 Mg Tab.chew, 1,000 MG PO WM Scheduled PRN Albuterol Sulf (Albuterol Sulfate) 2.5 Mg/3 Ml Vial.neb, 2.5 MG INH TID PRN for SHORTNESS OF BREATH Albuterol Sulfate (Ventolin Hfa) 18 Gm Hfa.aer.ad, 2 PUFF INH Q4H PRN for SHORTNESS OF BREATH Allergies Coded Allergies: NSAIDS (Non-Steroidal Anti-Inflamma (Verified Allergy, Severe, ANAPH YLAXIS, 01/20/19) aspirin (Verified Allergy, Severe, ANAPHYLAXIS, 01/20/19) GME ATTESTATION GME ATTESTATION My faculty preceptor for this patient encounter was physically present during the encounter and was fully available. All aspects of the patient interview, examination, medical decision making process, and medical care plan development were reviewed and approved by the faculty preceptor. The faculty preceptor is aware and concurs with the plan as stated in the body of this note and will attest to such by his/her cosignature. ATTENDING NOTE I reviewed and 's H&P and agree with the findings as documented. Pls see my progress dated 06/03/19 for additional details. MARIANA MIRANDA DO Jun 03, 2019 23:28 DANDY CERVANTES MD June 06, 2019 06:11
[2019-06-03 23:44] LABS: ERYTHROCYTE SEDIMENTATION RATE 37 mm/hr (0-20)
[2019-06-03] MEDS ORDERED: PILL CUTTER 1 EACH XX PRN (23:45)
[2019-06-04] VITALS (12 sets, daily range): BP systolic 142–188; BP diastolic 51–96; O2SAT 94–98
[2019-06-04] MEDS: HumaLOG INSULIN (NovoLOG) PER UNIT SC SCH ×5 (00:24→21:00)
[2019-06-04] MEDS: GABAPENTIN 300 MG CAP PO SCH ×2 (00:25→21:43)
[2019-06-04] MEDS: ATORVASTATIN 20 MG TAB PO SCH ×2 (00:25→21:47)
[2019-06-04] MEDS: **hydrALAZINE** 50 MG TAB PO SCH ×4 (01:00→21:00)
[2019-06-04] MEDS: METOPROLOL TART 25 MG TABLET PO SCH ×3 (02:14→21:00)
[2019-06-04] MEDS: LOSARTAN 50 MG TAB PO SCH ×3 (02:15→21:46)
[2019-06-04 05:34] LABS: HEMATOCRIT 26.1 % (42.0-52.0); HEMOGLOBIN 8.8 g/dl (13.5-17.5); MEAN CORPUSCULAR HEMOGLOBIN 30.2 pg (27.0-33.0); MEAN CORPUSCULAR HGB CONC 33.7 g/dl (32.0-36.5); MEAN CORPUSCULAR VOLUME 89.7 fl (80.0-96.0); PLATELET COUNT, AUTOMATED 135 10^3/uL (150-450); RED BLOOD COUNT 2.91 10^6/uL (4.30-6.10); WHITE BLOOD COUNT 6.6 10^3/uL (4.0-10.0)
[2019-06-04 05:54] LABS: CALCIUM LEVEL 7.5 MG/DL (8.8-10.2); CREATININE FOR GFR 4.74 MG/DL (0.70-1.30); GLOMERULAR FILTRATION RATE 13.2 (>49); MAGNESIUM LEVEL 1.9 MG/DL (1.8-2.4)
[2019-06-04] MEDS ORDERED: POTASSIUM CHLORIDE 10 MEQ SR TABLET PO ONE (07:00)
[2019-06-04] MEDS ORDERED: SLF 3 ML SYR IV PRN (08:00)
[2019-06-04] MEDS: SYMBICORT 160/4.5MCG INHALER 6GM INH SCH ×2 (08:02→21:37)
[2019-06-04] MEDS ORDERED: metOLazone 5 MG TAB PO SCH ×2 (09:00)
[2019-06-04] MEDS ORDERED: ISOSORBIDE MON. (IMDUR) 30 MG XR TAB PO SCH (09:00)
[2019-06-04] MEDS ORDERED: BUMETANIDE 1 MG TAB PO SCH (09:00)
[2019-06-04] MEDS: LEVEMIR (INSULIN DETEMIR) 1 UNITS/0.01ML SC SCH (10:23)
[2019-06-04] MEDS: CETIRIZINE (ZyrTEC) 10 MG TAB PO SCH (10:25)
[2019-06-04] MEDS: CLOPIDOGREL 75 MG TAB PO SCH (10:27)
[2019-06-04] MEDS: DOCUSATE SODIUM 100 MG CAP PO SCH ×2 (10:28→21:46)
[2019-06-04] MEDS: FOLIC ACID 1 MG TAB PO SCH (10:29)
[2019-06-04] MEDS: FLUTICASONE PROP 0.05% NASAL SPRAY 16 GM (FLONASE) NARES SCH ×2 (10:29→21:50)
[2019-06-04] MEDS: CALCIUM ACETATE 667 MG GELCAP PO SCH ×3 (10:33→17:08)
[2019-06-04] MEDS: HEPARIN SOD (PORCINE) 5000UNITS/ML VIAL (J1644 PER 1000UNITS) SC SCH ×2 (10:33→21:46)
[2019-06-04] MEDS: SUCROFERRIC OXYHYDROXIDE 500MG CHEW TAB (VELPHORO) PO SCH ×3 (10:33→17:08)
--- NOTE | 2019-06-04 12:01 | IPNPDOC ---
Subjective Date Seen The patient was seen on 06/04/19. Subjective Chief Complaint/HPI Patient is still feels shortness of breath on left side of his chest, no cough, no fever General: Denies: ROS Unobtainable, Chills, Night Sweats, Fatigue, Malaise, Normal Appetite, Other Symptoms Constitutional: Denies: Chills, Fever, Malaise, Night Sweats, Weakness, Fatigue, Weight Loss, Lethargy, Other Pulmonary: Reports: Dyspnea Cardiovascular: Denies: Chest Pain, Palpitations, Orthopnea, Paroxysmal Noc. Dyspnea, Edema, Lt Headedness, Other Symptoms Gastrointestinal: Denies: Nausea, Vomiting, Abdominal Pain, Diarrhea, Constipa tion, Melena, Hematochezia, Other Symptoms Genitourinary: Denies: Dysuria, Frequency, Incontinence, Hematuria, Retention, Other Symptoms Hematologic: Denies: Bruising, Bleeding Excessively, Petecchia, Purpura, Enlarged Lymph Nodes, Other Hematologic Musculoskeletal: Denies: Neck Pain, Back Pain, Shoulder Pain, Arm Pain, Hand Pain, Leg Pain, Foot Pain, Joint Pain, Muscle Pain, Spasms, Other Symptoms Neurological: Denies: Weakness, Numbness, Incoordination, Change in speech, Confusion, Seizures, Other Symptoms Objective Physical Examination General Exam: Positive: Alert, Cooperative Eye Exam: Positive: PERRLA, Conjunctiva & lids normal ENT Exam: Positive: Atraumatic Neck Exam: Positive: Supple, JVD Chest Exam: Positive: Other (crackles or 2. Left side of lung. No wheezing, no rales, no rhonchi) Heart Exam: Positive: Rate Normal, Normal S1, Normal S2 Abdomen Exam: Positive: Normal bowel sounds, Soft Extremity Exam: Positive: Normal pulses Skin Exam: Positive: Nl turgor and temperature Neuro Exam: Positive: Strength at 5/5 X4 ext, Cranial Nerves 3-12 NL Psych Exam: Positive: Mood NL, Oriented x 3 Assessment /Plan Problems (1) Pneumonia Status: Acute Problem Text: Patient admitted with the diagnosis of left upper lobe pneumonia CT of the chest shows: Groundglass consolidation left upper lobe I doubt these findings are consistent with infection, pro-calcitonin is still pending. Will change if by mouth Levaquin to IV Rocephin and Zithromax to cover community-acquired pneumonia But will await pro-calcitonin if is negative. Antibiotics will be DC'd Possible discharge in a.m. after hemodialysis (2) Pulmonary congestion Status: Acute Problem Text: Possible volume overload. Patient did receive her Lasix and Bumex in ED Is to let a mild complains of shortness of breath on left side. Otherwise, in no acute respiratory distress Patient will receive hemodialysis tomorrow before discharge (3) ESRD (end stage renal disease) Status: Acute Problem Text: Patient received hemodialysis yesterday and is scheduled for hemodialysis tomorrow Nephrology consult was called for HD yesterday Possible discharge home after HD tomorrow (4) Prostate cancer Status: Chronic Problem Text: Scheduled to receive radiation therapy with Dr. Epps today Plan/VTE VTE Prophylaxis Ordered?: Yes VS, I&O, 24H, Fishbone Vital Signs/I&O Vital Signs Date Time Temp Pulse Resp B/P (MAP) Pulse Ox O2 Delivery O2 Flow Rate FiO2 06/04/19 08:00 97.8 62 20 188/84 (118) 95 Room Air I&O- Last 24 Hours up to 6 AM 06/04/19 06:00 Intake Total 0 ml Output Total 100 ml Balance -100 ml Laboratory Data 24H LABS Laboratory Tests 2 06/03/19 18:33: Lactic Acid Level 1.2 06/03/19 18:57: Immature Granulocyte % (Auto) 0.5, Neutrophils (%) (Auto) 62.6, Lymphocytes (%) (Auto) 14.0L, Monocytes (%) (Auto) 9.1H, Eosinophils (%) (Auto) 12.9H, Basophils (%) (Auto) 0.9, Neutrophils # (Auto) 5.0, Lymphocytes # (Auto) 1.1L, Monocytes # (Auto) 0.7, Eosinophils # (Auto) 1.0H, Basophils # (Auto) 0.1, Nucleated Red Blood Cells % (auto) 0.0, Erythrocyte Sedimentation Rate 37H, Anion Gap 11, Glomerular Filtration Rate 14.3L, Calcium Level 8.4L, Total Bilirubin 0.4, Direct Bilirubin 0.2, Aspartate Amino Transf (AST/SGOT) 27, Alanine Aminotransferase (ALT/SGPT) 81H, Alkaline Phosphatase 101, C-Reactive Protein, Quantitative 0.39H, DO-Cwy-J-Type Natriuretic Peptide 31604R, Total Protein 7.4, Albumin 3.6, Albumin/Globulin Ratio 0.95L, Thyroid Stimulating Hormone (TSH) 2.530 06/03/19 19:45: Blood Gas Bicarbonate Standard 26.6H, Arterial Blood pH 7.424, Arterial Blood Partial Pressure CO2 42.4, Arterial Blood Partial Pressure O2 99.9, Arterial Blood Total CO2 28.4, Arterial Blood HCO3 27.1H, Arterial Blood Base Excess 2.5H, Arterial Blood Oxygen Saturation 96.0 06/03/19 21:32: Coronavirus (COVID-19)(PCR) NEGATIVE 06/04/19 00:21: Bedside Glucose (Misc Panel) 47L 06/04/19 00:54: Bedside Glucose (Misc Panel) 89 06/04/19 01:17: 06/04/19 05:17: Nucleated Red Blood Cells % (auto) 0.0, Anion Gap 8, Glomerular Filtration Rate 13.2L, Calcium Level 7.5L, Magnesium Level 1.9 06/04/19 07:59: Bedside Glucose (Misc Panel) 161H CBC/BMP Laboratory Tests 06/03/19 18:57 06/04/19 05:17 Microbiology Microbiology 06/03/19 Respiratory Virus Panel (PCR) ([facility]) - Final, Complete 06/03/19 Blood Culture, Received Pending 06/03/19 Blood Culture, Received Pending KRYSTLE THOMAS MD Jun 04, 2019 12:01
[2019-06-04] MEDS: AZITHROMYCIN 250MG TABLET PO SCH (12:45)
[2019-06-04] MEDS: SLF 3 ML SYR IV SCH ×2 (12:46→21:47)
[2019-06-04] MEDS: cefTRIAXone SOD 1 GM in D5W MINI-BAG PLUS 50 ML IV SCH ×2 (13:04→15:58)
[2019-06-04 13:32] LABS: PERCENT SATURATION 35.5 % (19.7-50.0)
--- NOTE | 2019-06-04 16:40 | ECGEPIP ---
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
--- NOTE | 2019-06-04 18:10 | CR ---
DATE OF CONSULTATION: 06/04/2019 CONSULTATION REPORT FOR: Alejandro Harrington MD REASON FOR CONSULTATION: To assist in the management of end-stage renal disease and shortness of breath. HISTORY OF PRESENT ILLNESS: Mr. Scott is a 68-year-old gentleman with known history of insulin-requiring diabetes, hypertension, end-stage renal disease, prostate cancer, coronary artery disease and congestive heart failure. He is regularly dialyzed on Sunday, and Sunday schedule. He presented to the emergency room yesterday with shortness of breath. He did have his dialysis treatment yesterday but it he was still short of breath after dialysis. He was found to have a left lower lobe infiltrate and also a small pleural effusion. Due to which, he was admitted. A nephrology consultation was not requested yesterday by the admitting physician. However, it was requested today as the patient is in need for dialysis. The patient is seen in the progressive care unit this morning. PAST MEDICAL AND SURGICAL HISTORY: Significant for: 1. Longstanding insulin-requiring diabetes. 2. Hypertension. 3. End-stage renal disease. 4. Asthma. 5. Prostate cancer, on radiation therapy currently. 6. History of coronary artery disease with prior myocardial infarction (NH) and coronary artery bypass graft (CABG). 7. History of congestive heart failure. 8. History of hyperlipidemia. 9. History of anemia. 10. History of anxiety. PAST SURGICAL HISTORY: Significant for left knee surgery, quadruple bypass surgery, cardiac catheterization with angioplasty and stents, left inguinal hernia repair and sinus surgery. PERSONAL AND SOCIAL HISTORY: The patient is and lives with his . He denies any alcohol, drug, or tobacco use. FAMILY HISTORY: Negative for end-stage renal disease. REVIEW OF SYSTEMS: The patient denies any fever or chills. He gets short of breath while he is laying down. He denies any cough or hemoptysis on respiratory review. Cardiovascular system is significant for coronary artery disease and congestive heart failure. He has chronic leg edema but does not tolerate aggressive fluid removal with dialysis. Gastrointestinal (GI) system is negative for nausea, vomiting or diarrhea. Genitourinary () system is negative for flank pain or dysuria. He is currently undergoing radiation for prostate cancer. Musculoskeletal system is significant for chronic leg edema. Psychosocial system is significant for anxiety and depression. Hematological system is significant for anemia of end-stage renal disease. Neurological system negative for seizures or stroke. Skin is negative for rash or ulcers. PHYSICAL EXAMINATION: The patient is awake and alert at the time of my visit without any acute distress. His temperature is 97.8 degrees Fahrenheit, heart rate 80 per minute and respiratory rate 20 per minute. Blood pressure 178/96 mmHg and oxygen saturation 98% on room air. Head is atraumatic. There are no oral thrush or ulcers. Pupils equal and reactive to light and sclera is anicteric. Neck is supple and jugular venous distention (JVD) is only mildly elevated. Heart sounds are regular. Lungs with diminished breath sounds in left lower one-third. Abdomen is soft and nontender. Bowel sounds are normal. Extremities without any cyanosis or clubbing. His bilateral lower extremity edema is at least 2+. Neurologically, he is awake, alert and oriented times three. LABORATORY DATA: WBC count 6.6, hemoglobin 8.8 and hematocrit 26.1 today while yesterday his hemoglobin was 10.7 and hematocrit 32.2. Sodium is 136, potassium 3.0, CO2 28, BUN 43 and creatinine 4.74. Glucose 180 and calcium 7.5. He had a chest x-ray and a chest CT scan done in the emergency room. Left lower lobe infiltrate and small left pleural effusion noticed. PROBLEMS: 1. Shortness of breath. Most likely, it is multifactorial. He has small pleural effusion and also an infiltrate. He is being treated with antibiotics for pneumonia. We will try to ultrafiltrate and remove two liters of fluid today and see if that will help with his symptoms. 2. End-stage renal disease. The patient is regularly dialyzed on Sunday, and Sunday schedule and he did complete his dialysis treatment yesterday. His regular dialysis will be scheduled for tomorrow. 3. Hypokalemia, most likely related to diuretics and dialysis. I am going to stop his Bumex and metolazone. I do not feel that high-dose diuretics are helping him much as far as his volume status goes. We will ultrafiltrate and remove two liters of fluid today. We will use a 3.0 mEq potassium bath. The patient has already received one dose of potassium chloride 40 mEq. 4. Hypertension. Blood pressure is somewhat high today and we will see if it improves with ultrafiltration and fluid removal. If his blood pressure does not improve then we will adjust his medications. 5. Anemia. He does have anemia of chronic kidney disease and it worsened probably related to hemodilution as yesterday he was admitted after dialysis. We will recheck his complete blood count (CBC) tomorrow. At this point, there is no urgent indication for a transfusion. His iron studies will be checked and we can give him Aranesp if needed. Thank you for involving me in the care of Mr. Scott. I will follow him along with you.
--- NOTE | 2019-06-05 00:21 | ECHO ---
DATE OF PROCEDURE: 06/04/2019 REFERRING PROVIDER: Dr. Granger REASON FOR THE STUDY: Heart failure. PATIENT LOCATION: Room 3226. 2D MEASUREMENTS: IVS: 1.2 cm LV: 4.4 cm LVPW: 1.3 cm Aorta: 3.9 IVC: 2.3 cm DOPPLER MEASUREMENTS: Peak velocity across the aortic valve: 1.2 m/s Peak velocity across the LVOT: 0.8 m/s Mitral E: 1.1 Mitral A: 0.7, with a ratio of 1.2 Maximum tricuspid valve velocity: 1.7 m/s 2D COMMENTS: 1. Probably mildly increased left ventricular wall thickness with normal left ventricular size, but left ventricular systolic function is mildly depressed. The estimated global left ventricular systolic ejection fraction is 40-45%. 2. Subjectively, the left atrium appeared to be mildly enlarged. The right atrium also appeared to be mildly enlarged. The right ventricular free wall was not well visualized. 3. The atrial septum appeared to be normal without evidence of defect or shunt. 4. A mildly dilated aortic root at 3.9 cm. 5. No pericardial effusion seen. 6. Mildly calcified aortic valve with normal leaflet excursion. Mildly to moderately calcified mitral annulus with normal anterior mitral valve leaflet motion. Normal tricuspid valve. The pulmonic valve was not well visualized. 7. The inferior vena cava was mildly enlarged; central venous pressure is probably elevated. DOPPLER: It detects mild to moderate mitral regurgitation, trace tricuspid regurgitation. The calculated pulmonary artery systolic pressure was normal. Abnormal relaxation pattern was noted across the mitral valve annulus, consistent with features of grade 2 left ventricular diastolic dysfunction; left ventricular end-diastolic pressure might be elevated. IMPRESSION: 1. Mild global left ventricular systolic function with global hypokinesis but preserved left ventricular wall thickness. There were some features of left ventricular diastolic dysfunction, grade 2. 2. Subjectively, the left atrium appeared to be mildly enlarged. There was mitral annulus calcification with mild to moderate mitral regurgitation. 3. Aortic valve sclerosis without stenosis or aortic regurgitation. 4. Trace tricuspid regurgitation with a normal pulmonary artery systolic pressure. Subjectively and in limited views, the right atrium appeared to be mildly enlarged. 5. Mildly dilated aortic root at 3.9 cm. 6. There were findings consistent with elevated central venous pressure; the inferior vena cava was mildly enlarged. 7. This was compared with the most recent echocardiogram on 06/11/2018 and, at that time, left ventricular systolic function was normal. MTDD
[2019-06-05 02:00] VITALS: BP 148/32
[2019-06-05] MEDS: SLF 3 ML SYR IV SCH (05:49)
[2019-06-05 06:00] VITALS: BP 154/80
[2019-06-05 07:09] LABS: HEMATOCRIT 29.6 % (42.0-52.0); MEAN CORPUSCULAR HEMOGLOBIN 30.6 pg (27.0-33.0); MEAN CORPUSCULAR HGB CONC 33.8 g/dl (32.0-36.5); MEAN CORPUSCULAR VOLUME 90.5 fl (80.0-96.0); PLATELET COUNT, AUTOMATED 168 10^3/uL (150-450); RED BLOOD COUNT 3.27 10^6/uL (4.30-6.10); WHITE BLOOD COUNT 7.4 10^3/uL (4.0-10.0)
[2019-06-05] MEDS: SYMBICORT 160/4.5MCG INHALER 6GM INH SCH (07:24)
[2019-06-05] MEDS: HumaLOG INSULIN (NovoLOG) PER UNIT SC SCH ×2 (07:30→14:01)
[2019-06-05 07:38] LABS: CALCIUM LEVEL 8.4 MG/DL (8.8-10.2); CREATININE FOR GFR 5.82 MG/DL (0.70-1.30); GLOMERULAR FILTRATION RATE 10.4 (>49); MAGNESIUM LEVEL 2.2 MG/DL (1.8-2.4); POTASSIUM SERUM 3.7 MEQ/L (3.5-5.1)
[2019-06-05] MEDS: CALCIUM ACETATE 667 MG GELCAP PO SCH ×2 (08:00→14:15)
[2019-06-05] MEDS: SUCROFERRIC OXYHYDROXIDE 500MG CHEW TAB (VELPHORO) PO SCH ×2 (08:00→14:16)
[2019-06-05] MEDS: **hydrALAZINE** 50 MG TAB PO SCH (09:00)
--- NOTE | 2019-06-05 11:56 | DS.PDOC ---
Discharge Summary General Date of Admission Jun 03, 2019 at 20:40 Date of Discharge 06/05/19 Discharge Summary PROCEDURES PERFORMED DURING STAY: None. ADMITTING DIAGNOSES: 1. Pneumonia, uncontrolled hypertension, pulmonary congestion. DISCHARGE DIAGNOSES: 1. Pneumonia was ruled out, pulmonary congestions, end-stage renal disease on hemodialysis. COMPLICATIONS/CHIEF COMPLAINT: Pneumonia,Uncontrolled Hypertension. HISTORY OF PRESENT ILLNESS: This is a 68-year-old male with a pertinent past medical history of prostate cancer currently undergoing radiation therapy, end- stage renal disease on hemodialysis, insulin-dependent diabetes who is presenting to our ER for shortness of breath for the last few days that worsened in the last 24 hours. He noticed these symptoms are exacerbated when he is layi ng down to go to bed. He denies PND and noticed improvement of symptoms with elevation of his head and legs. He believes the symptoms are similar to when he had congestive heart failure in November. He endorses being compliant with his blood pressure medication including the Bumex as prescribed. His last dialysis session was prior to visiting the ER today and he had 3.2 L removed. He endorses when he is ambulating he does not have any shortness of breath with exertion surprisingly or weakness with increased exercise. He denies any recent sick contact, fevers, chills, chest pain, palpitations, or upper respiratory like symptoms. He does endorse to a dry cough which is not too irritating so there is no new medications.. HOSPITAL COURSE: Patient's pneumonia was ruled out during his stay in the hospital, most likely chronic changes on CT of the chest Initially Patient admitted with the diagnosis of left upper lobe pneumonia CT of the chest shows: Groundglass consolidation left upper lobe Patient remained asymptomatic. No respiratory symptoms afebrile and pro calcit onin was negative Antibiotics were DC'd She will be discharged home today Pulmonary congestion :Possible volume overload. Patient did receive her Lasix an d Bumex in ED Is to let a mild complains of shortness of breath on left side. Otherwise, in no acute respiratory distress Discuss with Dr. Pride patient had ultrafiltration yesterday and will get hem odialysis today and will be discharged home after work End-stage renal disease on hemodialysis Patient will follow with Dr. Pride as an outpatient for hemodialysis needs. DISCHARGE MEDICATIONS: Please see below. ALLERGIES: Please see below. PHYSICAL EXAMINATION ON DISCHARGE: VITAL SIGNS: Please see below. GENERAL: Within normal limits HEENT: Virgie extraocular muscles intact NECK: Supple CARDIOVASCULAR EXAMINATION: S1, S2, regular RESPIRATORY EXAMINATION: Clear to A&P ABDOMINAL EXAMINATION: , Soft, nontender. Bowel sounds present EXTREMITIES: No clubbing, cyanosis, edema SKIN: Normal NEUROLOGICAL EXAMINATION: . No focal motor sensory deficit PSYCHIATRIC EXAMINATION: Normal LABORATORY DATA: Please see below. IMAGING: CT chest1. Ground-glass opacification with superimposed airspace consolidation in the anterior segment of the left upper lobe, which likely represents pneumonia. Imaging features can be seen with COVID-19 pneumonia, though are nonspecific and can occur with a variety of infectious and noninfectious processes. 2. Small left pleural effusion with associated compressive atelectasis in the lingula and left lower lobe. 3. Evidence for chronic pancreatitis, and there is dilation of the main pancreatic duct. The head of the pancreas was not fully imaged. 4. Prevascular and pretracheal lymphadenopathy. PROGNOSIS: Good ACTIVITY: As tolerated. DIET: As tolerated DISCHARGE PLAN: Discharged home DISPOSITION: Home . DISCHARGE INSTRUCTIONS: 1. As per discharge instructions. ITEMS TO FOLLOWUP ON ON OUTPATIENT: 1. Follow PCP in one week. DISCHARGE CONDITION: Stable. TIME SPENT ON DISCHARGE: 35 minutes. Vital Signs/I&Os Vital Signs Date Time Temp Pulse Resp B/P (MAP) Pulse Ox O2 Delivery O2 Flow Rate FiO2 06/05/19 06:00 96.3 58 17 154/80 (104) 97 Room Air I&O- Last 24 Hours up to 6 AM 06/05/19 06:00 Intake Total 1105 ml Output Total 2350 ml Balance -1245 ml Laboratory Data Labs 24H Laboratory Tests 2 06/04/19 12:36: Bedside Glucose (Misc Panel) 131H 06/04/19 16:56: Bedside Glucose (Misc Panel) 100 06/04/19 20:29: Bedside Glucose (Misc Panel) 71L 06/05/19 06:54: Nucleated Red Blood Cells % (auto) 0.0, Anion Gap 11, Glomerular Filtration Rate 10.4L, Calcium Level 8.4L, Magnesium Level 2.2 06/05/19 08:02: Bedside Glucose (Misc Panel) 43L 06/05/19 08:26: Bedside Glucose (Misc Panel) 64L CBC/BMP Laboratory Tests 06/05/19 06:54 FSBS Laboratory Tests Test 06/04/19 12:36 06/04/19 16:56 06/04/19 20:29 06/05/19 08:02 Range/Units Bedside Glucose (Misc Panel) 131 100 71 43 80-115 MG/DL Test 06/05/19 08:26 Range/Units Bedside Glucose (Misc Panel) 64 80-115 MG/DL Microbiology Microbiology 06/03/19 Respiratory Virus Panel (PCR) ([facility]) - Final, Complete 06/03/19 Blood Culture - Preliminary, Resulted No growth after 24 hours . All specim... 06/03/19 Blood Culture - Preliminary, Resulted No growth after 24 hours . All specim... Discharge Medications Scheduled Atorvastatin Calcium (Atorvastatin Calcium) 40 Mg Tablet, 40 MG PO QPM, (Reported) TAKES AT DINNERTIME Budesonide/Formoterol (Symbicort 160-4.5 Mcg Inhaler) 6 Gm Hfa.aer.ad, 2 PUFF INH BID, (Reported) Bumetanide (Bumetanide) 2 Mg Tablet, 2 MG PO BID, (Reported) Calcium Acetate (Calcium Acetate) 667 Mg Capsule, 1,334 MG PO WM, (Reported) Cetirizine HCl (Cetirizine HCl) 10 Mg Tablet, 5 MG PO DAILY, (Reported) Clopidogrel Bisulfate (Clopidogrel) 75 Mg Tablet, 75 MG PO DAILY, (Reported) Docusate Sodium (Colace) 100 Mg Capsule, 100 MG PO BID, (Reported) Ergocalciferol (Vitamin D2) (Vitamin D2) 50,000 Units Cap, 50,000 UNITS PO QWEEK, (Reported) SUNDAYS Fluticasone Propionate (Flonase Allergy Relief) 9.9 Ml [place].susp, 1 SPRAY NARES BID, (Reported) Folic Acid (Folic Acid) 1 Mg Tablet, 1 MG PO DAILY, (Reported) Gabapentin (Gabapentin) 300 Mg Capsule, 300 MG PO QPM, (Reported) TAKES AT DINNERTIME Hydralazine HCl (Hydralazine HCl) 50 Mg Tablet, 50 MG PO TID, (Reported) Insulin Glargine,Hum.rec.anlog (Lantus Solostar) 100 Unit/1 Ml Insuln.pen, 25 UNITS SC DAILY, (Reported) Insulin Human Lispro (Humalog) 100 Unit/1 Ml Vial, 1 DOSE SC AC, (Reported) PER SLIDING SCALE Isosorbide Mononitrate (Isosorbide Mononitrate ER) 30 Mg Tab.er.24h, 60 MG PO 4XWK, (Reported) MON, WED, FRI, SUN - NON-DIALYSIS DAYS. NONE ON DIALYSIS DAYS Lidocaine/Prilocaine (Lidocaine-Prilocaine Cream) 2.5%/2.5% Cream..g., 1 DOSE TOP 3XW, (Reported) APPLY TO PORT 1 HOUR PRIOR TO DIALYSIS Losartan Potassium (Losartan Potassium) 50 Mg Tablet, 50 MG PO BID, (Reported) DOES NOT TAKE PRIOR TO DIALYSIS, SO ON DIALYSIS DAYS, TAKES AROUND 1300 AND DINNERTIME AND ON NON-DIALYSIS DAYS, TAKES AM AND DINNERTIME Methoxy Peg-Epoetin Beta (Mircera) 75 Mcg/0.3 Ml Syringe, 75 MCG INJ QMONTH, (Reported) Metolazone (Metolazone) 5 Mg Tablet, 5 MG PO DAILY, (Reported) Metoprolol Tartrate (Metoprolol Tartrate) 25 Mg Tablet, 25 MG PO BID, (Reported) Sucroferric Oxyhydroxide (Velphoro) 500 Mg Tab.chew, 1,000 MG PO WM, (Reported) Scheduled PRN Albuterol Sulf (Albuterol Sulfate) 2.5 Mg/3 Ml Vial.neb, 2.5 MG INH TID PRN for SHORTNESS OF BREATH, (Reported) Albuterol Sulfate (Ventolin Hfa) 18 Gm Hfa.aer.ad, 2 PUFF INH Q4H PRN for SHORTNESS OF BREATH, (Reported) Allergies Coded Allergies: NSAIDS (Non-Steroidal Anti-Inflamma (Verified Allergy, Severe, ANAPHYLAXIS, 01/20/19) aspirin (Verified Allergy, Severe, ANAPHYLAXIS, 01/20/19) KRYSTLE THOMAS MD Jun 05, 2019 11:56
[2019-06-05] MEDS ORDERED: LevoFLOXacin 750 MG TABLET PO SCH (13:00)
[2019-06-05 14:00] VITALS: BP 148/32
[2019-06-05] MEDS: CLOPIDOGREL 75 MG TAB PO SCH (14:15)
[2019-06-05] MEDS: CETIRIZINE (ZyrTEC) 10 MG TAB PO SCH (14:15)
[2019-06-05] MEDS: FOLIC ACID 1 MG TAB PO SCH (14:15)
[2019-06-05] MEDS: DOCUSATE SODIUM 100 MG CAP PO SCH (14:15)
[2019-06-05 14:16] VITALS: BP 170/73
[2019-06-05] MEDS: HEPARIN SOD (PORCINE) 5000UNITS/ML VIAL (J1644 PER 1000UNITS) SC SCH (14:16)
[2019-06-05] MEDS: METOPROLOL TART 25 MG TABLET PO SCH (14:16)
[2019-06-05] MEDS: AZITHROMYCIN 250MG TABLET PO SCH (14:16)
[2019-06-05] MEDS: LEVEMIR (INSULIN DETEMIR) 1 UNITS/0.01ML SC SCH (14:17)
[2019-06-05] MEDS: LOSARTAN 50 MG TAB PO SCH (14:17)
[2019-06-05] MEDS: FLUTICASONE PROP 0.05% NASAL SPRAY 16 GM (FLONASE) NARES SCH (14:17)
--- NOTE | 2019-06-06 07:34 | IPN ---
DATE OF VISIT: 06/05/3019 Mr. Scott is seen this morning during hemodialysis. He is feeling better and reports that he slept all night without any problem. His dyspnea and orthopnea has improved. He denies any fever or chills. He has no nausea or vomiting. On physical examination, temperature 96.3 degrees Fahrenheit, heart rate 58 per minute and respiratory rate 18 per minute. Blood pressure 148/32 mmHg and oxygen saturation 97% on room air. His head is atraumatic. Neck is supple and without jugular venous distention (JVD) or thyroid enlargement. Internal jugular hemodialysis catheter is present on right side with exit site on right upper chest, without any sign of infection. He has oral thrush or ulcers. Heart sounds are regular and lungs with diminished breath sounds in the left base. Bowel sounds are normal. Extremities without any cyanosis or clubbing. Neurologically, he is awake, alert and oriented x3. Lower extremity edema is improved compared with yesterday. Today's labs show WBC count 7.4, hemoglobin 10.0 and hematocrit 29.6. Platelets 168. Sodium 137, potassium 3.7, CO2 25, BUN 60 and creatinine 5.82. His blood sugar was 30. Most recent fingerstick blood sugar is 64. PROBLEMS: 1. End-stage renal disease. The patient is being dialyzed today as today is his regular dialysis day. He is tolerating it well. 2. Pleural effusion, hypervolemia and edema. The patient had ultrafiltration yesterday and 2 liters of fluid was removed. His diuretics have been stopped due to electrolyte abnormalities and we are dialyzing him today for 3 liters fluid removal. He is tolerating it well so far. 3. Anemia. His anemia is stable at this point it does not need any urgent intervention. 4. Hypokalemia. Improvement in potassium level is noticed and it is now in the normal range. We are using 4.0 mEq potassium bath today in order to keep his potassium in normal range. 5. Pneumonia. The patient is afebrile and continues with antibiotic therapy.
[2019-06-10 00:06] LABS: CHLAMYDIA PNEUMONIAE IgM <1:10 (Neg:<1:10); MYCOPLASMA PNEUMONIAE IgG 551 U/mL (0-99); MYCOPLASMA PNEUMONIAE IgM <770 U/mL (0-769)
== END 2019-06-05 14:53 | disposition home or self-care (01) | DRG 193 ==
LOC: M ED 16:24 → M ED INP 20:40 → ENRESERV 22:43 → M PCU 23:25 → M MSPAV 06-04 18:42
PROVIDERS: ADMIT Internal Medicine; ATTEND Internal Medicine
PROC: 5A1D70Z Performance of Urinary Filtration, Intermittent, Less than 6 Hours Per Day (ICD-10-PCS; principal; 2019-06-05)
DX: J18.9 Pneumonia, unspecified organism (principal); N18.6 End stage renal disease; I13.2 Hypertensive heart and chronic kidney disease with heart failure and with stage 5 chronic kidney disease, or end stage renal disease; J45.901 Unspecified asthma with (acute) exacerbation; C61 Malignant neoplasm of prostate; E11.9 Type 2 diabetes mellitus without complications; Z79.899 Other long term (current) drug therapy; Z88.6 Allergy status to analgesic agent; Z79.4 Long term (current) use of insulin; I25.2 Old myocardial infarction; Z95.1 Presence of aortocoronary bypass graft; I50.9 Heart failure, unspecified; E78.5 Hyperlipidemia, unspecified; F41.9 Anxiety disorder, unspecified; I16.0 Hypertensive urgency; E87.6 Hypokalemia; D63.1 Anemia in chronic kidney disease

== ENCOUNTER → 2019-06-05 | Outpatient (RCR) | payer OTHER, MEDICARE ==
--- NOTE | 2019-05-22 13:06 | RADONC ---
RADIATION ONCOLOGY SIMULATION NOTE DATE: CHART NUMBER: [id number] SIMULATION NOTE: Mr. Scott was taken to the CT scan for CT simulation of his prostate field. Simulation was accomplished without difficulty or discomfort. Radiation treatment planning is underway and radiation treatments will begin subsequently. An immobilization device was created and will be used throughout the course of treatment. It was accomplished without difficulty or discomfort. I was physically present throughout the course of CT simulation.
--- NOTE | 2019-06-03 07:06 | RADONC ---
RADIATION ONCOLOGY PROGRESS NOTE DATE: 06/02/2019 CHART #: [id number] Mr. Scott is presently at a dose of 540 cGy to his prostate and is tolerating treatments quite well at this point with no complaints related to his radiation therapy. He has no urinary or bowel difficulties and no bone pain. REVIEW OF SYSTEMS: The patient's review of systems is noncontributory. Denies nausea, vomiting, fevers, chills, night sweats, diplopia, headaches, anxiety or depression, anorexia, weight loss, visual disturbances, chest pain, urinary or bowel difficulties, bone pain, or neurological problems. PHYSICAL EXAMINATION: The patient's skin is in good condition with no evidence of radiation change present. There is no moist or dry desquamation. The remainder of his physical exam remains unchanged. Mr. Scott is tolerating treatments quite well and radiation will continue as scheduled.
[~2019-06-05] MED LIST changes: +ISOS30TA4 PO; +LIDO2.5C15 TOP; +METO25TA4 PO; +VITA50005 PO
== END ==
LOC: M ONCR 05-22 11:21
PROVIDERS: ATTEND Radiology Radiation Oncology
DX: C61 Malignant neoplasm of prostate (principal)

== ENCOUNTER → 2019-06-10 | Outpatient (CLI) | payer OTHER, MEDICARE ==
--- NOTE | 2019-06-11 02:26 | REP ---
Clinical: Bilateral pleural effusion. Technique: PA and lateral. Comparison: 06/03/2019. Findings: Mediastinum suggests cardiomegaly with chronic changes including evidence of prior sternotomy and CABG as well as double-lumen central venous catheter placement. The lung barr demonstrate chronic increased interstitial markings which appear improved. Elevation to the left hemidiaphragm remains stable and subtle left basilar atelectasis as well as possible small left pleural effusion cannot be excluded. A small right pleural effusion with trace atelectasis is also identified. No pneumothorax. Skeletal structures are intact. Impression: 1. Chronic-appearing changes. 2. Findings suggest small pleural effusions and basilar atelectasis. Electronically Signed by Mg Pepe MD 06/11/2019 02:17 A
== END ==
LOC: M CLY 13:02
PROVIDERS: ATTEND Family Medicine
DX: J90 Pleural effusion, not elsewhere classified (principal); J98.11 Atelectasis

== ENCOUNTER 2019-07-04 11:48 | Outpatient (RCR) | payer OTHER, MEDICARE ==
--- NOTE | 2019-06-12 09:02 | RADONC ---
RADIATION ONCOLOGY PROGRESS NOTE DATE: 06/09/2019 CHART #: [id number] Mr. Scott is presently at a dose of 1440 cGy to his prostate and is tolerating treatments quite well at this point with no complaints related to his radiation therapy. He is having no urinary or bowel difficulties and no bone pain. REVIEW OF SYSTEMS: The patient's review of systems is noncontributory. Denies nausea, vomiting, fevers, chills, night sweats, diplopia, headaches, anxiety or depression, anorexia, weight loss, visual disturbances, chest pain, urinary or bowel difficulties, bone pain, or neurological problems. PHYSICAL EXAMINATION: The patient's skin is in good condition with no evidence of radiation change present. There is no moist or dry desquamation. The remainder of his physical exam remains unchanged. Mr. Scott is tolerating treatments quite well and radiation will continue as scheduled.
--- NOTE | 2019-06-17 13:56 | RADONC ---
RADIATION ONCOLOGY PROGRESS NOTE DATE OF SERVICE: 06/16/2019 CHART NUMBER: [id number]. PROGRESS NOTE: Mr. Scott is presently at a dose of 2340 cGy to his prostate and seminal vesicles and is tolerating treatments quite well at this point with no complaints related to his radiation therapy. He is having no urinary or bowel difficulties and no bone pain. REVIEW OF SYSTEMS: The patient's review of systems is noncontributory. He denies nausea, vomiting, fevers, chills, night sweats, diplopia, headaches, anxiety or depression, anorexia, weight loss, visual disturbances, chest pain, urinary or bowel difficulties, bone pain, or neurological problems. PHYSICAL EXAMINATION: The patient's skin is in good condition with no evidence of moist or dry desquamation. The remainder of his physical exam remains unchanged. Mr. Scott is tolerating treatments quite well, and radiation will continue as scheduled.
--- NOTE | 2019-06-25 09:58 | RADONC ---
RADIATION ONCOLOGY PROGRESS NOTE DATE: 06/23/2019 CHART #: [id number] Mr. Scott is presently at a dose of 3240 cGy to his prostate and seminal vesicles and is tolerating treatments quite well at this point with no complaints related to his radiation therapy. He is having no urinary or bowel difficulties and no bone pain. REVIEW OF SYSTEMS: The patient's review of systems is noncontributory. Denies nausea, vomiting, fevers, chills, night sweats, diplopia, headaches, anxiety or depression, anorexia, weight loss, visual disturbances, chest pain, urinary or bowel difficulties, bone pain, or neurological problems. PHYSICAL EXAMINATION: The patient's skin is in good condition with no evidence of moist or dry desquamation. The remainder of his physical exam remains unchanged. Mr. Scott is tolerating treatments quite well and radiation will continue as scheduled.
== END 2019-07-06 ==
LOC: M ONCR 11:48
PROVIDERS: ATTEND Radiology Radiation Oncology
DX: C61 Malignant neoplasm of prostate (principal)

== ENCOUNTER → 2019-07-07 | Outpatient (CLI) | payer OTHER, MEDICARE ==
[~2019-07-07] MED LIST changes: +LIDOCAINE W/EPINEPHRINE 1% 20ML VIAL As Ordered ONE
[2019-07-07 08:16] VITALS: BP 172/79
--- NOTE | 2019-07-07 09:24 | ROOPDOC ---
[facility] Report Of Operation Report of Operation DATE OF PROCEDURE: 07/07/19 PREPROCEDURE DIAGNOSES: End-stage renal disease no longer requiring PermCath for dialysis POSTPROCEDURE DIAGNOSES: Same PROCEDURE: Removal right IJ PermCath SURGEON: Marco Munoz MD ANESTHESIA: Local anesthesia lidocaine with 1% epinephrine 8 mL INDICATION FOR PROCEDURE: This is a very pleasant 68 0 patient was successfully dialyzing with his AV graft and no longer requires a PermCath for dialysis. Risks benefits and alternatives to PermCath removal were explained to the patient he was agreeable to proceed. Informed consent was obtained. REPORT OF OPERATION: Patient's right neck and chest were prepped and draped in a sterile fashion. A timeout was performed. Local anesthesia was administered to skin and subcutaneous tissue around the exit site of the catheter in the right chest as well as up over the cost and the subcutaneous tissue. The sutures were removed. Blunt dissection was used to loosen the catheter and the cuff from the subcutaneous tissue. Sharp dissection was used to remove the fibrinous sheath from the cost. Pressure was held at the right jugular access site in the catheter was removed. The catheter was inspected, and found to be completely intact. No portion was left behind. The tip in the cuff were intact. Pressure was held for 15 minutes for good hemostasis. Sterile dressings were applied. The patient was monitored post removal and then discharged in stable condition. He tolerated the procedure well. ESTIMATED BLOOD LOSS: Approximately 1 mL. COMPLICATIONS: None. PLAN: Continue to use AV graft for dialysis. Okay to shower tomorrow with dressing off. Okay to leave chest PermCath removal site open to air or cover with a Band-Aid if necessary. Site will heal from the inside out. Keep head elevated for the rest of the day. Try to avoid laying flat or bending over. If any bleeding occurs at the site, hold pressure over the right neck for 15 minutes. Call with any questions or concerns. We appreciate the opportunity to participate in the care of this patient. MARCO MUNOZ MD Jul 07, 2019 09:24
== END ==
LOC: M IRPRO 08:14
PROVIDERS: ATTEND Surgery Vascular Surgery
DX: Z45.2 Encounter for adjustment and management of vascular access device (principal); N18.6 End stage renal disease

== ENCOUNTER → 2019-07-28 | Outpatient (REF) | payer OTHER, MEDICARE ==
[~2019-07-28] MED LIST changes: -LIDOCAINE W/EPINEPHRINE 1% 20ML VIAL As Ordered ONE
== END ==
LOC: M SFHCCLAY 11:29
PROVIDERS: ATTEND Family Medicine
DX: Z99.2 Dependence on renal dialysis (principal); Z11.59 Encounter for screening for other viral diseases

== ENCOUNTER 2019-07-31 11:49 | Outpatient (RCR) | payer OTHER, MEDICARE ==
--- NOTE | 2019-07-08 17:23 | RADONC ---
RADIATION ONCOLOGY PROGRESS NOTE DATE: 07/01/2019 CHART NUMBER: [id number] PROGRESS NOTE: Mr. Scott is presently at a dose of 4140 cGy to his prostate and seminal vesicles and is tolerating treatments quite well at this point, although he is complaining of fatigue. REVIEW OF SYSTEMS: The patient's review of systems is positive for fatigue, but is otherwise generally noncontributory. Denies nausea, vomiting, fevers, chills, night sweats, diplopia, headaches, anxiety or depression, anorexia, weight loss, visual disturbances, chest pain, urinary or bowel difficulties, bone pain, or neurological problems. PHYSICAL EXAMINATION: The patient's skin is in good condition with no evidence of moist or dry desquamation. The remainder of his physical exam remains unchanged. Mr. Scott is tolerating treatments quite well and radiation will continue as scheduled.
--- NOTE | 2019-07-13 08:27 | RADONC ---
RADIATION ONCOLOGY PROGRESS NOTE DATE: 07/07/2019 CHART NUMBER: [id number] PROGRESS NOTE: Mr. Scott is thus far at a dose of 4680 cGy to his prostate and seminal vesicles and was last treated on Thursday, July 04, 2019. He did not come in today for personal reasons. He is scheduled to resume radiation tomorrow. As of Sunday, he had been tolerating his treatments quite well with no difficulty. We will continue to follow him closely.
--- NOTE | 2019-07-18 06:15 | RADONC ---
RADIATION ONCOLOGY PROGRESS NOTE DATE: 07/14/2019 CHART #: [id number] Mr. Scott is presently at a dose of 5580 cGy to his prostate and is tolerating treatments quite well at this point with no complaints related to his radiation therapy. He is having no urinary or bowel difficulties and no bone pain. REVIEW OF SYSTEMS: The patient's review of systems is noncontributory. Denies nausea, vomiting, fevers, chills, night sweats, diplopia, headaches, anxiety or depression, anorexia, weight loss, visual disturbances, chest pain, urinary or bowel difficulties, bone pain, or neurological problems. PHYSICAL EXAMINATION: The patient's skin is in good condition with no evidence of moist or dry desquamation. The remainder of his physical exam remains unchanged. Mr. Scott is tolerating treatments quite well and radiation will continue as scheduled.
--- NOTE | 2019-07-23 10:35 | RADONC ---
RADIATION ONCOLOGY PROGRESS NOTE: DATE: 07/21/2019 CHART NUMBER: [id number] Mr. Scott is presently at a dose of 6480 cGy to his prostate and is tolerating his treatments quite well at this point with no significant complaints related to his radiation therapy. He is having no significant pain, urinary or bowel difficulties. REVIEW OF SYSTEMS: The patient's review of systems is noncontributory. He denies nausea, vomiting, fevers, chills, night sweats, diplopia, headaches, anxiety or depression, anorexia, weight loss, visual disturbances, chest pain, urinary or bowel difficulties, bone pain, or neurological problems. PHYSICAL EXAMINATION: The patient's skin is in good condition with no evidence of moist or dry desquamation. The remainder of his physical exam remains unchanged. Mr. James is tolerating treatments quite well and radiation will continue as scheduled.
--- NOTE | 2019-07-31 12:26 | RADONC ---
RADIATION ONCOLOGY DATE OF SERVICE: 07/28/2019 CHART #: [id number] Mr. Scott is a 68-year-old gentleman with diagnosis of prostate CA. So far, he has received a dose of 7380 cGy in 41 fractions. His treatment was uneventful. REVIEW OF SYSTEMS: He has no significant pain, urinary or bowel difficulties. He experienced occasional constipation and nocturia is once. He denies nausea, vomiting, fever, chills, night sweats and bone pain. PHYSICAL EXAMINATION: He is in good condition with no evidence of skin changes. The remainder of physical exam remains unchanged. Overall, he is tolerating treatment very well and the radiation therapy will continue as planned. MTDD
--- NOTE | 2019-08-06 10:58 | RADONC ---
RADIATION ONCOLOGY DATE: 07/31/2019 CHART NUMBER: [id number] Mr. Scott carries the diagnosis of prostate CA. So far he has received a dose of 7920 cGy from 05/29/2019 to 07/31/2019 in 63 elapsed days. First part , dose of 5400 cGy was delivered in 30 fractions to the prostate and the seminal vesicles using 6 MEV photons with IMRT. An additional 2520 cGy was delivered to the prostate in 14 fractions using IMRT with a 6 MEV photon beams. He tolerated treatment very well. He has no complaints. He has no , GI symptoms. PHYSICAL EXAMINATION: He is good general condition. There is no noticeable skin changes. Mr. Scott tolerated the treatment very well and he was advised continuous followup care with the physicians involved and he was also asked to return here in 3 months for checkup. ALYSSAD
== END 2019-08-05 ==
LOC: M ONCR 11:49
PROVIDERS: ATTEND Radiology Radiation Oncology
DX: C61 Malignant neoplasm of prostate (principal)

== ENCOUNTER → 2019-09-30 | Outpatient (REF) | payer OTHER, MEDICARE ==
[~2019-09-30] MED LIST changes: -ALL10TAB29 PO; -AMLO10TA5 PO; +AMLO1TAB25 PO; +CETI-24 PO
== END ==
LOC: M LABDRAWC 13:30
PROVIDERS: ATTEND Radiology Radiation Oncology
DX: C61 Malignant neoplasm of prostate (principal)

== ENCOUNTER → 2019-10-10 | Outpatient (REF) | payer OTHER, MEDICARE ==
[2019-10-10 14:09] LABS: BILIRUBIN,TOTAL 0.3 MG/DL (0.2-1.0); CALCIUM LEVEL 8.3 MG/DL (8.8-10.2); CHOLESTEROL RISK RATIO 1.93 (<5); CREATININE FOR GFR 4.46 MG/DL (0.70-1.30); GLOMERULAR FILTRATION RATE 14.2 (>49); MAGNESIUM LEVEL 1.8 MG/DL (1.8-2.4); POTASSIUM SERUM 3.5 MEQ/L (3.5-5.1); TOTAL PROTEIN 6.4 GM/DL (6.4-8.2)
[2019-10-10 15:24] LABS: HEMOGLOBIN A1c 10.5 %
== END ==
LOC: M LABDRAWC 11:34
PROVIDERS: ATTEND Family Medicine
DX: E11.22 Type 2 diabetes mellitus with diabetic chronic kidney disease (principal); N18.9 Chronic kidney disease, unspecified

== ENCOUNTER → 2019-10-10 | Outpatient (CLI) | payer OTHER, MEDICARE ==
--- NOTE | 2019-10-30 10:33 | REP ---
LUMBOSACRAL SPINE SERIES CLINICAL: Lower back pain and left-sided sciatic. TECHNIQUE: AP, lateral, bilateral oblique, and coned down views of the lumbosacral spine. FINDINGS: Frontal view demonstrates mild dextroconvex scoliosis centered at L2-3. Multilevel degenerative changes include osteophytosis, endplate sclerosis, disc space narrowing, and hypertrophic facet changes. Disc space narrowing most pronounced at the L4-5 and L5-S1 levels. There is no evidence for acute fracture/compression injury or subluxation. IMPRESSION: Osteopenia and advanced multilevel degenerative changes. If the patient remains symptomatic consider MRI for further investigation. MTDD
== END ==
LOC: M CLY 08:25
PROVIDERS: ATTEND Family Medicine
DX: M54.32 Sciatica, left side (principal); M17.12 Unilateral primary osteoarthritis, left knee